=== PATIENT | female | born 1935 | race Caucasian/White ===

== ENCOUNTER → 2016-10-24 | Outpatient (CLI) | payer BC ==
[~2016-10-24] MED LIST: ASPI81TA28 PO; CALCTAB5 PO; FENO200C6 PO; FLAXPOW2 PO; GARL400T4 PO; MAGN250T22; MISC1TAB PO; MULT-506 PO; OMEGCAP2 PO; PSYL0.524 PO; TELM40TA11 PO
[2016-10-24 11:13] LABS: ALT/SGPT 32 U/L (12-78); AST/SGOT 23 U/L (15-37); BLOOD UREA NITROGEN 26 mg/dl (7-18); BUN/CREATININE RATIO 27.8 (10-20); CALCIUM 9.7 mg/dl (8.5-10.1); CARBON DIOXIDE 31 mmol/L (21-32); CHLORIDE 98 mmol/L (98-107); CHOLESTEROL 116 mg/dl (0-200); CREATININE 0.92 mg/dl (0.60-1.20); GLUCOSE 98 mg/dl (70-99); POTASSIUM 4.3 mmol/L (3.5-5.1); SODIUM 134 mmol/L (136-145)
[2016-10-24 11:21] LABS: CHOLESTEROL/HDL RATIO 2.6; HDL CHOLESTEROL 45 mg/dl; LDL CHOLESTEROL CALCULATED 41 mg/dl; THYROID STIMULATING HORMONE 0.977 uIu/ml (0.300-4.500); TRIGLYCERIDES 152 mg/dl (0-150); VERY LOW DENSITY LIPOPROT CALC 30 mg/dl
== END | disposition home or self-care (01) ==
LOC: C.LABBC 08:07
PROVIDERS: ATTEND Internal Medicine
DX: E78.5 Hyperlipidemia, unspecified (principal); L67.9 Hair color and hair shaft abnormality, unspecified; E83.52 Hypercalcemia

== ENCOUNTER → 2017-04-24 | Outpatient (CLI) | payer BC ==
[2017-04-24 11:22] LABS: BLOOD UREA NITROGEN 19 mg/dl (7-18); BUN/CREATININE RATIO 22.7 (10-20); CALCIUM 9.7 mg/dl (8.5-10.1); CARBON DIOXIDE 27 mmol/L (21-32); CHLORIDE 99 mmol/L (98-107); CREATININE 0.84 mg/dl (0.60-1.20); GLUCOSE 95 mg/dl (70-99); POTASSIUM 4.1 mmol/L (3.5-5.1); SODIUM 134 mmol/L (136-145)
[2017-04-24 11:25] LABS: CHOLESTEROL 107 mg/dl (0-200); CHOLESTEROL/HDL RATIO 2.2; HDL CHOLESTEROL 48 mg/dl; LDL CHOLESTEROL CALCULATED 41 mg/dl; TRIGLYCERIDES 92 mg/dl (0-150); VERY LOW DENSITY LIPOPROT CALC 18 mg/dl
== END | disposition home or self-care (01) ==
LOC: C.LABBC 07:44
PROVIDERS: ATTEND Internal Medicine
DX: E78.5 Hyperlipidemia, unspecified (principal); E87.1 Hypo-osmolality and hyponatremia; M85.80 Other specified disorders of bone density and structure, unspecified site

== ENCOUNTER 2017-06-23 08:57 | Emergency (ER) | payer BC ==
[~2017-06-23] VITALS: Ht 157.5 cm; Wt 59.0 kg
[~2017-06-23 08:57] MED LIST changes: -MAGN250T22; +MAGN250T22 PO
[2017-06-23 09:05] VITALS: TEMP 36.3; Ht 157.5 cm; Wt 59.0 kg
[2017-06-23 09:22] VITALS: O2SAT 98
[2017-06-23 09:46] LABS: BASO % 0.1 %; BASO ABS # 0.01 K/uL (0-0.2); COMPLETE YES; EOS % 1.1 %; IG% 0.1 %; LYMPH % 24.4 %; MEAN CELL VOLUME 90.9 fL (80-100); MEAN CORPUSCULAR HEMOGLOBIN 31.8 pg (25-34); MEAN PLATELET VOLUME 11.1 fL (7.4-10.4); MONO % 5.1 %; NEUT % 69.2 %; PLATELET COUNT 256 K/uL (130-400); RED BLOOD COUNT 4.84 M/uL (4.2-5.4)
[2017-06-23 09:53] LABS: ALT/SGPT 29 U/L (12-78); BLOOD UREA NITROGEN 20 mg/dl (7-18); BUN/CREATININE RATIO 22.6 (10-20); CALCIUM 9.7 mg/dl (8.5-10.1); CARBON DIOXIDE 27 mmol/L (21-32); CHLORIDE 97 mmol/L (98-107); GLUCOSE 110 mg/dl (70-99); POTASSIUM 3.9 mmol/L (3.5-5.1); SODIUM 131 mmol/L (136-145)
[2017-06-23 09:54] LABS: PARTIAL THROMBOPLASTIN RATIO 1.1; PROTHROMBIN TIME (PATIENT) 10.2 SECONDS (9.0-12.0)
--- NOTE | 2017-06-23 09:56 | DIAGNOSTIC IMAGING REPORT ---
CHEST ONE VIEW PORTABLE CLINICAL HISTORY: Fever. Sepsis. COMPARISON STUDY: Chest radiograph and chest CT December 04, 2013. FINDINGS: There is mild elevation of the right hemidiaphragm. No pneumothorax or pleural effusion is present. There is no evidence of pulmonary edema. Cardiac size is at the upper limits of normal. No consolidation is identified. IMPRESSION: No acute cardiopulmonary findings. Electronically signed by: Danny Regalado M.D. 06/23/2017 9:55 AM Dictated Date/Time: 06/23/2017 9:52 AM
[2017-06-23 09:58] LABS: ALKALINE PHOSPHATASE 64 U/L (45-117); AST/SGOT 26 U/L (15-37); CKMB/CK RATIO 3.4 (0-3.0)
[2017-06-23] MEDS ORDERED: OMEG10007 PO (10:10)
[2017-06-23] MEDS ORDERED: CALC600T9 PO (10:10)
[2017-06-23] MEDS ORDERED: FENO134C2 PO (10:10)
[2017-06-23] MEDS ORDERED: BIOTCAP2 PO (10:10)
[2017-06-23] MEDS ORDERED: GARL10007 PO (10:11)
[2017-06-23] MEDS ORDERED: GLUCTAB7 PO (10:12)
[2017-06-23] MEDS ORDERED: OMEG1CAP71 PO (10:13)
--- NOTE | 2017-06-23 10:58 | EMERGENCY ROOM VISIT NOTE ---
History Report prepared by Tammi: Janny Sandoval Under the Supervision of: Dr. Pavel Marks D.O. First contact with patient: 09:23 Chief Complaint: HYPERTENSION Stated Complaint: HIGH BLOOD PRESSURE History of Present Illness The patient is a 82 year old female who presents to the Emergency Room with complaints of sudden hypertension beginning this morning. The patient states that she took her blood pressure several times this morning and that it did not come down. She states that she is usually nervous and hyper, but denies dizziness. She also denies weakness in her arms and legs. She states that she saw her doctor last week and was told that if her pressure is 180/90 to call the office right away. The patient states that she takes 40 mg of Telmisartan daily for her hypertension. Source of History: patient Onset: this morning Position: other (global) Quality: other (hypertension ) Timing: other (sudden) Associated Symptoms: No weakness (in arms and legs) Note: also denies: dizziness Review of Systems See HPI for pertinent positives & negatives. A total of 10 systems reviewed and were otherwise negative. Past Medical & Surgical Medical Problems: (1) Chest tightness (2) Chest tightness (3) Hypercholesteremia (4) Hypertension (5) Light-headedness (6) Light-headedness (7) Light-headedness Family History Patient reports no known family medical history. Social History Smoking Status: Never Smoker Alcohol Use: none Drug Use: none Marital Status: Housing Status: lives with family Occupation Status: retired Current/Historical Medications Scheduled Aspirin (Aspirin Ec), 81 MG PO QPM Biotin (Biotin 5000), 5 MG PO DAILY Calcium Carbonate-Vitamin D (Calcium + D), 1 TAB PO DAILY Fenofibrate (Tricor ), 134 MG PO DAILY@1200 Fish Oil ([place]-3), 1 CAP PO DAILY Garlic (Garlic), 1,000 MG PO DAILY Fzwzjxtcidn-Ijxevzzmhno-Fvu C- (Glucosamine Chondroitin), 1 TAB PO DAILY Magnesium Oxide (Magnesium), 250 MG PO DAILY Multivitamin (Multivitamin), 1 TAB PO DAILY [place] 3 Fatty Acids-[place] 6 Fa ([place] 3-6-9 Complex), 1 CAP PO DAILY Psyllium (Metamucil), 1 CAP PO BID Telmisartan (Micardis), 20 MG PO BID Allergies Coded Allergies: No Known Allergies (Unverified , 06/23/17) Physical Exam Vital Signs Date Time Temp Pulse Resp B/P (MAP) Pulse Ox O2 Delivery O2 Flow Rate FiO2 06/23/17 10:52 80 18 160/87 98 Room Air 06/23/17 09:22 81 20 198/90 98 Room Air 06/23/17 09:22 98 Room Air 06/23/17 09:20 87 06/23/17 09:05 36.3 92 20 210/96 98 Room Air Physical Exam CONSTITUTIONAL/VITAL SIGNS: Reviewed / noted above. GENERAL: Non-toxic in appearance. INTEGUMENTARY: Warm, dry, and Sun. HEAD: Normocephalic. EYES: without scleral icterus or trauma. ENT/OROPHARYNX: clear and moist. LYMPHADENOPATHY/NECK: Is supple without lymphadenopathy or meningismus. RESPIRATORY: Lungs clear and equal. CARDIOVASCULAR: Regular rate and rhythm. GI/ABDOMEN: Soft and nontender. No organomegaly or pulsatile mass. No rebound or guarding. Normal bowel sounds. EXTREMITIES: Warm and well perfused. BACK: No CVA tenderness. NEUROLOGICAL: Intact without focal deficits. PSYCHIATRIC: normal affect. MUSCULOSKELETAL: Normally developed with good muscle tone. Medical Decision & Procedures ER Provider Diagnostic Interpretation: Radiology results as stated below per my review and radiologist interpretation: CHEST ONE VIEW PORTABLE CLINICAL HISTORY: Fever. Sepsis. COMPARISON STUDY: Chest radiograph and chest CT December 04, 2013. FINDINGS: There is mild elevation of the right hemidiaphragm. No pneumothorax or pleural effusion is present. There is no evidence of pulmonary edema. Cardiac size is at the upper limits of normal. No consolidation is identified. IMPRESSION: No acute cardiopulmonary findings. Electronically signed by: Danny Regalado M.D. 06/23/2017 9:55 AM Dictated Date/Time: 06/23/2017 9:52 AM Laboratory Results 06/23/17 09:25 Red Blood Count 4.84, Mean Corpuscular Volume 90.9, Mean Corpuscular Hemoglobin 31.8, Mean Corpuscular Hemoglobin Concent 35.0, Mean Platelet Volume 11.1, Neutrophils (%) (Auto) 69.2, Lymphocytes (%) (Auto) 24.4, Monocytes (%) (Auto) 5.1, Eosinophils (%) (Auto) 1.1, Basophils (%) (Auto) 0.1, Neutrophils # (Auto) 6.22, Lymphocytes # (Auto) 2.20, Monocytes # (Auto) 0.46, Eosinophils # (Auto) 0.10, Basophils # (Auto) 0.01 06/23/17 09:25 Test 06/23/17 09:25 White Blood Count 9.00 K/uL (4.8-10.8) Red Blood Count 4.84 M/uL (4.2-5.4) Hemoglobin 15.4 g/dL (12.0-16.0) Hematocrit 44.0 % (37-47) Mean Corpuscular Volume 90.9 fL (80-100) Mean Corpuscular Hemoglobin 31.8 pg (25-34) Mean Corpuscular Hemoglobin Concent 35.0 g/dl (32-36) Platelet Count 256 K/uL (130-400) Mean Platelet Volume 11.1 fL (7.4-10.4) Neutrophils (%) (Auto) 69.2 % Lymphocytes (%) (Auto) 24.4 % Monocytes (%) (Auto) 5.1 % Eosinophils (%) (Auto) 1.1 % Basophils (%) (Auto) 0.1 % Neutrophils # (Auto) 6.22 K/uL (1.4-6.5) Lymphocytes # (Auto) 2.20 K/uL (1.2-3.4) Monocytes # (Auto) 0.46 K/uL (0.11-0.59) Eosinophils # (Auto) 0.10 K/uL (0-0.5) Basophils # (Auto) 0.01 K/uL (0-0.2) RDW Standard Deviation 43.0 fL (36.4-46.3) RDW Coefficient of Variation 13.0 % (11.5-14.5) Immature Granulocyte % (Auto) 0.1 % Immature Granulocyte # (Auto) 0.01 K/uL (0.00-0.02) Prothrombin Time 10.2 SECONDS (9.0-12.0) Prothromb Time International Ratio 1.0 (0.9-1.1) Activated Partial Thromboplast Time 27.5 SECONDS (21.0-31.0) Partial Thromboplastin Ratio 1.1 Anion Gap 8.0 mmol/L (3-11) Est Creatinine Clear Calc Drug Dose 38.8 ml/min Estimated GFR () 69.5 Estimated GFR (Non- 60.0 BUN/Creatinine Ratio 22.6 (10-20) Calcium Level 9.7 mg/dl (8.5-10.1) Total Bilirubin 0.4 mg/dl (0.2-1) Direct Bilirubin 0.1 mg/dl (0-0.2) Aspartate Amino Transf (AST/SGOT) 26 U/L (15-37) Alanine Aminotransferase (ALT/SGPT) 29 U/L (12-78) Alkaline Phosphatase 64 U/L (45-117) Total Creatine Kinase 47 U/L (26-192) Creatine Kinase MB 1.6 ng/ml (0.5-3.6) Creatine Kinase MB Ratio 3.4 (0-3.0) Troponin I < 0.015 ng/ml (0-0.045) Total Protein 9.3 gm/dl (6.4-8.2) Albumin 4.4 gm/dl (3.4-5.0) Laboratory results as stated above per my review. ECG Indication: other (hypertension) Rate (beats per minute): 76 Rhythm: sinus rhythm Findings: 1st degree AV block, no acute ischemic change, no ectopy ED Course 0934: Previous medical records were reviewed. The patient was evaluated in room A2. A complete history and physical examination was performed. 1058: On reevaluation, the patient is resting. I discussed the results and findings with the patient. She verbalized agreement of the treatment plan. She was discharged home. Medical Decision Differential includes acute coronary syndrome, myocardial infarction, CVA, TIA, anemia, infection, pneumonia, UTI, pyelonephritis, poor nutrition, dehydration, electrolyte disturbance,hypoglycemia. Is an 82-year-old female who presents to the ED with a chief complaint of hypertension. The patient states that she checked her blood pressure this morning it was elevated. She states that she is always anxious and nervous. She states that this blood pressure was higher than normal. She had her blood pressure checked last week by her doctor and it was only mildly elevated. The patient has no complaints. She states that she feels fine. Physical exam was normal. EKG shows a sinus rhythm. CBC, complete metabolic panel and troponin are unremarkable. Without treatment, the patient's blood pressure improved to 160/87. She was told the results of the test. She is felt to be stable for discharge and outpatient follow-up to have her blood pressure rechecked. Medication Reconcilliation Current Medication List: was personally reviewed by me Blood Pressure Screening Patient's blood pressure: Elevated blood pressure Blood pressure disposition: Referred to PCP Impression Primary Impression: Hypertension Scribe Attestation The scribe's documentation has been prepared under my direction and personally reviewed by me in its entirety. I confirm that the note above accurately reflects all work, treatment, procedures, and medical decision making performed by me. Departure Information Dispostion Home / Self-Care Referrals Misael Victor M.D. (PCP) Forms HOME CARE DOCUMENTATION FORM, IMPORTANT VISIT INFORMATION, WORK / SCHOOL INSTRUCTIONS Patient Instructions My [facility] Additional Instructions Follow-up with your doctor for further care and evaluation in 1-2 days. Return to the emergency department for worsening or new symptoms or any concerns. You have been examined and treated today on an emergency basis only. This is not a substitute for, or an effort to provide, complete comprehensive medical care. It is impossible to recognize and treat all injuries or illnesses in a single emergency department visit. It is therefore important that you follow up closely with your doctor. Call as soon as possible for an appointment. Have your blood pressure rechecked this week by your doctor.
[2017-06-23 11:33] VITALS: BP 157/88; PULSE 79; O2SAT 99
== END 2017-06-23 11:35 | disposition home or self-care (01) ==
LOC: C.EDB 09:00 → C.EDA 11:35
DX: I10 Essential (primary) hypertension (principal); E78.00 Pure hypercholesterolemia, unspecified; Z79.82 Long term (current) use of aspirin; Z79.899 Other long term (current) drug therapy

== ENCOUNTER → 2017-10-24 | Outpatient (CLI) | payer BC ==
[~2017-10-24] MED LIST changes: +BIOTCAP2 PO; +CALC600T9 PO; -CALCTAB5 PO; +FENO134C2 PO; -FENO200C6 PO; -FLAXPOW2 PO; +GARL10007 PO; -GARL400T4 PO; +GLUCTAB7 PO; -MISC1TAB PO; +OMEG10007 PO; +OMEG1CAP71 PO; -OMEGCAP2 PO
[2017-10-24 11:08] LABS: BASO % 0.1 %; BASO ABS # 0.01 K/uL (0-0.2); EOS % 1.4 %; EOS ABS # 0.12 K/uL (0-0.5); HEMATOCRIT 41.8 % (37-47); HEMOGLOBIN 14.1 g/dL (12.0-16.0); IG# 0.02 K/uL (0.00-0.02); LYMPH % 32.4 %; LYMPH ABS # 2.74 K/uL (1.2-3.4); MEAN CELL VOLUME 91.1 fL (80-100); MEAN CORPUSCULAR HEMOGLOBIN 30.7 pg (25-34); MEAN CORPUSCULAR HGB CONC 33.7 g/dl (32-36); MEAN PLATELET VOLUME 10.6 fL (7.4-10.4); MONO % 8.3 %; NEUT % 57.6 %; NEUT ABS # 4.87 K/uL (1.4-6.5); PLATELET COUNT 321 K/uL (130-400); RED CELL DISTRIBUTION WIDTH CV 13.1 % (11.5-14.5); RED CELL DISTRIBUTION WIDTH SD 43.6 fL (36.4-46.3); WHITE BLOOD COUNT 8.46 K/uL (4.8-10.8)
[2017-10-24 11:41] LABS: ALT/SGPT 28 U/L (12-78); AST/SGOT 21 U/L (15-37); BLOOD UREA NITROGEN 24 mg/dl (7-18); CALCIUM 10.4 mg/dl (8.5-10.1); CARBON DIOXIDE 29 mmol/L (21-32); CHOLESTEROL 115 mg/dl (0-200); CREATININE 0.93 mg/dl (0.60-1.20); GLUCOSE 111 mg/dl (70-99); POTASSIUM 4.2 mmol/L (3.5-5.1); SODIUM 132 mmol/L (136-145)
[2017-10-24 11:44] LABS: LDL CHOLESTEROL CALCULATED 44 mg/dl
== END | disposition home or self-care (01) ==
LOC: C.LABBC 08:27
PROVIDERS: ATTEND Internal Medicine
DX: E78.5 Hyperlipidemia, unspecified (principal); I10 Essential (primary) hypertension

== ENCOUNTER 2021-01-04 13:41 | Observation (INO) ==
--- NOTE | 2021-01-04 14:28 | Emergency Department Note ---
Impression & Plan Closed fracture of left hip, Acute hip pain, Acute hyponatremia, Fall ED Provider Note NAME: TAMEKA EDGE AGE: 86 SEX: F : 1935 ARRIVES VIA: Walk-In INFORMANT: Patient, ED PROVIDER(S): Drew Alonso MD Chief Complaint: Hip pain HPI: Patient does present with concern for some persistent left hip pain. Patient states that she had a fall approximately 3 weeks ago on December 17 and fell onto her left side. The patient states that after that she did have some mild pain with ambulation but still had good range of motion. The patient not take anything for pain at home. Patient denies any LOC or head strike at the time of the fall. The patient describes it as achy and worse with the ambulation. Pat ient denies any fevers chills chest pain shortness of breath nausea or vomiting. The patient was seen in the outpatient setting did have x-rays completed which show that the patient does have a left-sided impacted hip fracture. Patient denies any prior history of orthopedic injury or surgery. ROS: See HPI for pertinent positives and negatives. A total of 10 systems were reviewed and otherwise negative. Past medical history: See below Surgical history: See below Social history: See below Physical Exam: GENERAL: Wearing glasses and a mask. NAD, non-toxic. EYE EXAM: Normal conjunctiva. PERRL, no anisocoria and EOM's grossly intact w/o pain. NECK: Supple, no nuchal rigidity, no adenopathy, non-tender. No signs of meningismus. LUNGS: Clear to auscultation. Normal chest wall mechanics. HEART: NSR, no MRG. ABDOMEN: Abdomen soft, non-tender, normo-active bowel sounds, no masses, no kalani ound or guarding. BACK: No CVA TTP. SKIN: No rashes and no bruising. UPPER EXTREMITIES: Upper extremities are grossly normal. LOWER EXTREMITIES: Mild left shortening compared to the right, no obvious deformity or ecchymosis over the left hip. Good range of motion. NEURO EXAM: A&O x3, cranial nerves II-XII grossly intact, normal speech, moves all 4 extremities on command w/o issue. Differential diagnoses: Fracture, subluxation, dislocation, contusion, ligamentous injury, neurovascular, compartment syndrome, rhabdomyolysis, as well as other pathologies. Course: Patient was seen and evaluated the bedside. Full history physical exam was performed. Imaging Studies: Prior imaging from before the patient's visit showed a left impacted hip fracture. Cardiac monitoring: An order was placed for continuous cardiac monitoring. The monitor shows a rate of 93 with sinus rhythm. MDM: Patient did present with concern for left hip fracture. I did speak with the on-call orthopedist Rolly Collado PA-C and the patient was admitted by [facility] physician group by Dr. Knox for further management. Patient has normal white count H&H and platelet count. Patient does have mild hyponatremia. Covid negative. Past Med/Surg History Medical History Chest tightness Chest tightness Hypercholesteremia Hypertension Light-headedness No pertinent family history Surgical History No pertinent past surgical history Family History Brother Stomach cancer Alcohol abuse Diabetes Mother Stomach cancer Colonic polyp Colorectal cancer Father Myocardial infarction Aunt Breast cancer Denies family history of Ovarian cancer Prostate cancer Social History Smoking Status: Never smoker Second Hand Exposure: Yes; Hx Alcohol Use: No (social) Hx Substance Use: No Preferred Language: Tristanian Communication Ability: Effective Visual Impairment: No Limitations Hearing Ability: Normal Beliefs That Will Affect Care: None marital status: / Current Living Situation: Alone current occupational status: retired Feels Safe at Home: Yes Childhood Exposure to Second-Hand Smoke: Yes Dental Care, Regularly: Yes Physical Activity Frequency: Daily Seatbelt Use: always Sunscreen Use: No Assistive Devices: Glasses Allergies Allergies Allergy/AdvReac Type Severity Reaction Status Date / Time No Known Allergies Allergy Verified 01/04/21 11:46 Home Meds Home Medications Medication Instructions Recorded Confirmed aspirin [Aspirin Low Dose] 81 mg PO QPM 12/09/18 01/04/21 biotin 5 mg PO DAILY 12/09/18 01/04/21 fish,bora,flax oils-om3,6,9no1 1 cap PO DAILY 12/09/18 01/04/21 [[place] 3-6-9] garlic 1,000 mg PO DAILY 12/09/18 01/04/21 magnesium 250 mg PO DAILY 12/09/18 01/04/21 mslecmca-cky-BX-lycopen-lutein 1 tab PO DAILY 12/09/18 01/04/21 [Centrum Silver] psyllium husk 0.4 gram capsule 0.8 gm PO DAILY cap 04/29/19 01/04/21 furosemide 20 mg tablet 20 mg PO DAILY tab 01/05/20 01/04/21 cholecalciferol (vitamin D3) 25 25 mcg PO DAILY 01/04/21 01/04/21 mcg (1,000 unit) capsule clonidine HCl 0.1 mg tablet 0.1 mg PO .COMPLEX PRN tab 01/04/21 01/04/21 fenofibrate micronized 134 mg 134 mg PO DAILY cap 01/04/21 01/04/21 capsule yajo-wuhpy-do8-ner-upb-axhx-sterols 2 cap PO DAILY cap 01/04/21 01/04/21 375 mg-100 mg-36 mg-54 mg capsule triamcinolone acetonide 0.1 % 1 applic TOP DAILY PRN 01/04/21 01/04/21 topical cream Previous Rx's Medication Instructions Recorded amlodipine 10 mg tablet 10 mg PO DAILY #90 tab 04/30/20 telmisartan 40 mg tablet 40 mg PO BID #180 tab 07/05/20 Results & Data (ED) Vital Signs Vital Signs - 24 hr 01/04/21 14:00 Temperature 36.9 C Temperature Source Temporal Artery Scan Pulse Rate 93 H Respiratory Rate 20 Respiratory Effort / Characteristics Non-Labored Spontaneous Respiratory Depth Normal Respiratory Pattern Regular Blood Pressure 182/80 H Blood Pressure Mean 114 Pulse Oximetry 98 Oxygen Delivery Method Room Air Sepsis Recent Fever Within 48 Hours No Sepsis New/Unexplained Change in Mental Status No Sepsis Action Taken by Nursing No Action Required Laboratory Data Result diagrams: 01/04/21 15:23 01/04/21 15:23 Lab Results 01/04/21 01/04/21 01/04/21 Range/Units 15:23 15:23 15:23 WBC 9.71 (4.8-10.8) K/uL RBC 4.29 (4.2-5.4) M/uL Hgb 13.1 (12.0-16.0) g/dL Hct 38.1 (37-47) % MCV 88.8 (80-100) fL MCH 30.5 (25-34) pg MCHC 34.4 (32-36) g/dL RDW Std Deviation 41.7 (36.4-46.3) fL RDW Coeff of Monse 12.9 (11.5-14.5) % Plt Count 313 (130-400) K/uL MPV 9.8 (7.4-10.4) fL Immature Gran % (Auto) 0.3 % Neut % (Auto) 68.5 % Lymph % (Auto) 23.4 % [place] % (Auto) 6.8 % Eos % (Auto) 0.9 % Baso % (Auto) 0.1 % Neut # (Auto) 6.65 H (1.4-6.5) K/uL Lymph # (Auto) 2.27 (1.2-3.4) K/uL [place] # (Auto) 0.66 H (0.11-0.59) K/uL Eos # (Auto) 0.09 (0-0.5) K/uL Baso # (Auto) 0.01 (0-0.2) K/uL Immature Gran # (Auto) 0.03 H (0.00-0.02) K/uL PT 10.2 (9.0-12.0) Seconds INR 1.0 (0.9-1.1) APTT 28.1 (21.0-31.0) Seconds PTT Ratio 1.1 Sodium 127 L (136-145) mmol/L Potassium 4.1 (3.5-5.1) mmol/L Chloride 94 L (98-107) mmol/L Carbon Dioxide 29 (21-32) mmol/L Anion Gap 5.0 (3-11) BUN 19 H (7-18) mg/dl Creatinine 0.75 (0.6-1.2) mg/dl Est Cr Clr Drug Dosing 43.4 ml/min Est GFR ( Amer) 84.2 ml/min Est GFR (Non-Af Amer) 72.7 ml/min BUN/Creatinine Ratio 25.6 H (10-20) Glucose 108 H (70-99) mg/dl Calcium 10.0 (8.5-10.1) mg/dl Total Bilirubin 0.4 (0.2-1) mg/dl AST 30 (15-37) U/L ALT 35 (12-78) U/L Alkaline Phosphatase 60 (45-117) U/L Total Protein 8.3 H (6.4-8.2) gm/dl Albumin 3.7 (3.4-5.0) gm/dl Globulin 4.6 H (2.5-4.0) gm/dl Albumin/Globulin Ratio 0.8 L (0.9-2) COVID-19 Eval Order SARS-CoV-2 (PCR) (Negative) 01/04/21 01/04/21 Range/Units 15:30 15:30 WBC (4.8-10.8) K/uL RBC (4.2-5.4) M/uL Hgb (12.0-16.0) g/dL Hct (37-47) % MCV (80-100) fL MCH (25-34) pg MCHC (32-36) g/dL RDW Std Deviation (36.4-46.3) fL RDW Coeff of Monse (11.5-14.5) % Plt Count (130-400) K/uL MPV (7.4-10.4) fL Immature Gran % (Auto) % Neut % (Auto) % Lymph % (Auto) % [place] % (Auto) % Eos % (Auto) % Baso % (Auto) % Neut # (Auto) (1.4-6.5) K/uL Lymph # (Auto) (1.2-3.4) K/uL [place] # (Auto) (0.11-0.59) K/uL Eos # (Auto) (0-0.5) K/uL Baso # (Auto) (0-0.2) K/uL Immature Gran # (Auto) (0.00-0.02) K/uL PT (9.0-12.0) Seconds INR (0.9-1.1) APTT (21.0-31.0) Seconds PTT Ratio Sodium (136-145) mmol/L Potassium (3.5-5.1) mmol/L Chloride (98-107) mmol/L Carbon Dioxide (21-32) mmol/L Anion Gap (3-11) BUN (7-18) mg/dl Creatinine (0.6-1.2) mg/dl Est Cr Clr Drug Dosing ml/min Est GFR ( Amer) ml/min Est GFR (Non-Af Amer) ml/min BUN/Creatinine Ratio (10-20) Glucose (70-99) mg/dl Calcium (8.5-10.1) mg/dl Total Bilirubin (0.2-1) mg/dl AST (15-37) U/L ALT (12-78) U/L Alkaline Phosphatase (45-117) U/L Total Protein (6.4-8.2) gm/dl Albumin (3.4-5.0) gm/dl Globulin (2.5-4.0) gm/dl Albumin/Globulin Ratio (0.9-2) COVID-19 Eval Order Covid19 at [facility] SARS-CoV-2 (PCR) NEGATIVE (Negative) Discharge Plan Visit Data Chief Complaint: Hip Pain Stated Complaint: POSSIBLE FRACTURED L HIP/REFERRED BY ED Provider: Drew Alonso Discharge Problem: Closed fracture of left hip, Acute hip pain, Acute hyponatremia, Fall Forms Stand Alone Forms: My [facility] [employer] Prescriptions Prescriptions: No Action amlodipine 10 mg tablet 10 mg PO DAILY Qty: 90 RF: 3 telmisartan 40 mg tablet 40 mg PO BID Qty: 180 RF: 3 cholecalciferol (vitamin D3) 25 mcg (1,000 unit) capsule 25 mcg PO DAILY RF: 0 clonidine HCl 0.1 mg tablet 0.1 mg PO .COMPLEX PRN (Reason: hypertensive emergency) RF: 0 fenofibrate micronized 134 mg capsule 134 mg PO DAILY RF: 0 furosemide [Lasix] 20 mg tablet 20 mg PO DAILY RF: 0 triamcinolone acetonide 0.1 % cream 1 applic TOP DAILY PRN (Reason: DIRECTED) RF: 0 psyllium husk [Metamucil] 0.4 gram capsule 0.8 gm PO DAILY RF: 0 aspirin [Aspirin Low Dose] 81 mg Tablet,Delayed Release (Dr/Ec) 81 mg PO QPM RF: 0 garlic 1,000 mg Capsule 1,000 mg PO DAILY RF: 0 magnesium 250 mg Tablet 250 mg PO DAILY RF: 0 Centrum Silver 0.4-300-250 mg-mcg-mcg Tablet 1 tab PO DAILY RF: 0 biotin 5 mg Tablet 5 mg PO DAILY RF: 0 [place] 3-6-9 1,200 mg Capsule 1 cap PO DAILY RF: 0 Glucosamine Chondroitin PLUS 272-384-71-54 mg capsule 2 cap PO DAILY RF: 0 Discharge Problem: Closed fracture of left hip Qualifiers: Encounter type: initial encounter Qualified Code(s): S72.002A - Fracture of unspecified part of neck of left femur, initial encounter for closed fracture Acute hip pain Qualifiers: Laterality: left Qualified Code(s): M25.552 - Pain in left hip Fall Qualifiers: Encounter type: initial encounter Qualified Code(s): W19.XXXA - Unspecified fall, initial encounter
[2021-01-04 15:34] LABS: Basophils # (auto) 0.01 K/uL (0-0.2); Basophils % (auto) 0.1 %; Eosinophils # (auto) 0.09 K/uL (0-0.5); Eosinophils % (auto) 0.9 %; Hematocrit (blood only) 38.1 % (37-47); Hemoglobin 13.1 g/dL (12.0-16.0); Immature Granulocytes # (auto) 0.03 K/uL (0.00-0.02); Immature Granulocytes % (auto) 0.3 %; Lymphocytes # (auto) 2.27 K/uL (1.2-3.4); Lymphocytes % (auto) 23.4 %; Mean Corpuscular Hemoglobin 30.5 pg (25-34); Mean Corpuscular Hgb Conc 34.4 g/dL (32-36); Mean Corpuscular Volume 88.8 fL (80-100); Mean Platelet Volume 9.8 fL (7.4-10.4); Monocytes # (auto) 0.66 K/uL (0.11-0.59); Monocytes % (auto) 6.8 %; Neutrophils # (auto) 6.65 K/uL (1.4-6.5); Neutrophils % (auto) 68.5 %; Platelet Count 313 K/uL (130-400); RDW Coefficient of Variation 12.9 % (11.5-14.5); RDW Standard Deviation 41.7 fL (36.4-46.3); Red Blood Count 4.29 M/uL (4.2-5.4); White Blood Count 9.71 K/uL (4.8-10.8)
--- NOTE | 2021-01-04 15:46 | History & Physical Report ---
Date of Service January 04, 2021 Assessment & Plan (1) Femoral neck fracture: Admit to a nonmonitored bed Continues Tylenol for pain control, patient was doing this at home and does not appear to be in any distress Family is requesting from orthopedics for further evaluation, will consult Bedrest for now until evaluated (2) Hyponatremia: Sodium is 129, I did review the laboratory work and appears that she is chronically hyponatremic. Patient is on furosemide, I will hold this for now and monitor sodium (3) Hypertension: Patient's blood pressure was elevated on presentation, last documented at 182/80. Continue amlodipine 10 mg daily, telmisartan 40 mg Patient has as needed clonidine and her medication reconciliation, can give this for hypertension If this is persistent, may need to consider additional agents (4) Hypercholesteremia: Patient is on garlic and fish oil along with fenofibrate Will defer any further treatment of hypercholesterolemia to primary care doctor History of Present Illness Chief Complaint: Hip fracture Primary Care Provider: Misael Victor MD This is an 86-year-old female past medical history of hypertension hyperlipidemia that presents today with chief complaint hip fracture. Patient is a decent story. Patient was initially seen by her primary care provider earlier today with a complaint of persistent left hip pain. Their documentation as the patient has been having pain for several years but is been worse over the past month. She did note that she had fallen at home on 12/17. She lost her balance and did not strike her head lose consciousness at that time. Patient has been ambulatory since then has been able to continue to drive and care for self. She tells me she use her exercise bike earlier today. She also told me that she was able to use the stairs without any issues. She does use a cane for balance. However, after her primary care visit she had x-rays done which showed an impacted left femoral neck fracture. Patient was started to come to the emergency room for further evaluation. At time my evaluation, the patient was essentially stable. She denied any pain in her left hip and felt well. She said to be surprised that she had to stay in the hospital. Family member at bedside is requesting from orthopedics for any treatment that may be required. Allergies Allergy/AdvReac Type Severity Reaction Status Date / Time No Known Allergies Allergy Verified 01/04/21 11:46 Home Medications Medication Instructions Recorded Confirmed Type aspirin [Aspirin Low Dose] 81 mg PO QPM 12/09/18 01/04/21 History biotin 5 mg PO DAILY 12/09/18 01/04/21 History fish,bora,flax oils-om3,6,9no1 1 cap PO DAILY 12/09/18 01/04/21 History [[place] 3-6-9] garlic 1,000 mg PO DAILY 12/09/18 01/04/21 History magnesium 250 mg PO DAILY 12/09/18 01/04/21 History crlqhrdc-hqn-PE-lycopen-lutein 1 tab PO DAILY 12/09/18 01/04/21 History [Centrum Silver] psyllium husk 0.4 gram capsule 0.8 gm PO DAILY cap 04/29/19 01/04/21 History furosemide 20 mg tablet 20 mg PO DAILY tab 01/05/20 01/04/21 History amlodipine 10 mg tablet 10 mg PO DAILY #90 tab 04/30/20 01/04/21 Rx telmisartan 40 mg tablet 40 mg PO BID #180 tab 07/05/20 01/04/21 Rx cholecalciferol (vitamin D3) 25 25 mcg PO DAILY 01/04/21 01/04/21 History mcg (1,000 unit) capsule clonidine HCl 0.1 mg tablet 0.1 mg PO .COMPLEX PRN tab 01/04/21 01/04/21 History fenofibrate micronized 134 mg 134 mg PO DAILY cap 01/04/21 01/04/21 History capsule udsb-zszjz-bk2-ntt-agv-bdms-sterols 2 cap PO DAILY cap 01/04/21 01/04/21 History 375 mg-100 mg-36 mg-54 mg capsule triamcinolone acetonide 0.1 % 1 applic TOP DAILY PRN 01/04/21 01/04/21 History topical cream Past Med/Surg History Medical History Chest tightness Chest tightness Hypercholesteremia Hypertension Light-headedness No pertinent family history Surgical History No pertinent past surgical history Family History Brother Stomach cancer Alcohol abuse Diabetes Mother Stomach cancer Colonic polyp Colorectal cancer Father Myocardial infarction Aunt Breast cancer Denies family history of Ovarian cancer Prostate cancer Social History Smoking Status: Never smoker Second Hand Exposure: Yes; Hx Alcohol Use: No (social) Hx Substance Use: No Preferred Language: Cymro Communication Ability: Effective Visual Impairment: No Limitations Hearing Ability: Normal Beliefs That Will Affect Care: None marital status: / Current Living Situation: Alone current occupational status: retired Feels Safe at Home: Yes Childhood Exposure to Second-Hand Smoke: Yes Dental Care, Regularly: Yes Physical Activity Frequency: Daily Seatbelt Use: always Sunscreen Use: No Assistive Devices: Glasses Review of Systems Constitutional: no fever, no chills, no weakness, no weight loss and no weight gain Eyes: as per Subjective / HPI Respiratory: no cough, no chest congestion, no dyspnea and no dyspnea on exertion Cardiovascular: no chest pain, no orthopnea, no palpitations, no lighthe adedness and no edema Gastrointestinal: no abdominal pain, no nausea, no vomiting, no constipation and no diarrhea/loose stools Genitourinary: no dysuria, no difficulty urinating, no urinary frequency, no urinary hesitancy, no urinary urgency and no flank pain Musculoskeletal: no back pain, no neck pain, no joint pain, no stiffness and no myalgia Integumentary: no rash Neurologic: no gait abnormality, no unsteadiness, no falls and no generalized weakness Physical Exam Constitutional: cooperative and comfortable; no acute distress Neck: trachea midline, no thyromegaly Respiratory: normal respiratory effort Auscultation: lungs clear to auscultation bilaterally; no crackles, no rales, no rhonchi and no wheezes Cardiovascular: Rate/Rhythm: regular rate and regular rhythm Heart Sounds: normal S1 and normal S2 Gastrointestinal (Abdomen): Inspection/Auscultation: abdomen normal to inspection Percussion/Palpation: abdomen soft; abdomen nontender, no guarding, abdomen not rigid and no hepatosplenomegaly Musculoskeletal: No obvious deformity of either extremity, distal PT and DP pulses intact Skin: no rashes, warm and dry Results & Data Results & Data ([facility]) Vital Signs (Past 12 Hours) Vital Signs Temp Pulse Resp BP Pulse Ox 01/04/21 14:00 36.9 C 93 H 20 182/80 H 98 Diagnostic Findings SINGLE VIEW PELVIS AND: 2 VIEWS LEFT HIP CLINICAL HISTORY: Fall. Left hip pain. FINDINGS: An AP view of the pelvis with AP and frog-leg views of the left hip are obtained. No prior studies are available for comparison at the time of dictation. The skeletal structures are osteopenic. There is an impacted fracture at the left femoral head/neck junction. The bony pelvis and left hip appear intact. Advanced arthritic changes seen in the left hip with large calcified joint bodies. Moderate to advanced arthritic changes noted in the right hip. Lumbosacral spondylosis is partially imaged. Degenerative sclerosis is seen in the sacroiliac joints. Mild soft tissue edema overlies the left hip. IMPRESSION: 1. There is an impacted fracture at the left femoral head/neck junction. 2. No additional fracture is identified. 3. Advanced arthritic change and calcified joint bodies are noted in the left hip. PG Care Time/CCT Total # of Minutes Spent Total Time Spent with Patient: Total time spent is greater than 50% in coordination of care (as documented) at patient's floor/unit and/or counseling patient: Coding Level of Care Code 15008 Initial Inpt Care Lvl 3 Diagnoses Femoral neck fracture S72.009A Hyponatremia E87.1 Hypertension I10 Hypertension type: essential hypertension Hypercholesteremia E78.00 (1) Hypertension Hypertension type: essential hypertension Qualified Code(s): I10 - Essential (primary) hypertension
[2021-01-04 15:55] LABS: Albumin Level 3.7 gm/dl (3.4-5.0); BUN Creatinine Ratio 25.6 (10-20); Creatinine Clr Calc Pharmacy 43.4 ml/min; Est GFR (African American) 84.2 ml/min; Est GFR (Non-African American) 72.7 ml/min; Potassium 4.1 mmol/L (3.5-5.1)
[2021-01-04 15:58] LABS: Albumin Globulin Ratio 0.8 (0.9-2); Bilirubin,Total 0.4 mg/dl (0.2-1); Globulin 4.6 gm/dl (2.5-4.0); Total Protein 8.3 gm/dl (6.4-8.2)
[2021-01-04 16:01] LABS: Partial Thromboplastin Ratio 1.1; Partial Thromboplastin Time 28.1 Seconds (21.0-31.0); Prothrombin Time 10.2 Seconds (9.0-12.0)
[2021-01-04 16:44] LABS: Appearance Urine Clear (Clear); Bilirubin Urine Negative (Negative); Blood Urine Negative (Negative); Color Urine Yellow; Glucose Urine UA Negative (Negative); Ketones Urine Negative (Negative); Leukocyte Esterase Urine Negative (Negative); Nitrite Urine Negative (Negative); Protein Urine Negative (Negative); Specific Gravity Urine 1.015 (1.000-1.030); Urobilinogen Urine Negative (Negative); pH Urine 8.5 (4.5-7.5)
[2021-01-04] MEDS ORDERED: ACETAMINOPHEN 325 MG TAB PO PRN (21:18)
[2021-01-04] MEDS ORDERED: SODIUM CHLORIDE 0.9% 1000ML 1,000 ML IV SCH (21:18)
[2021-01-04] MEDS ORDERED: cloNIDine HCL 0.1 MG TAB PO PRN (21:18)
[2021-01-04] MEDS ORDERED: ONDANSETRON INJ 2 MG/ML 2 ML VIAL IV PRN (21:18)
[2021-01-04] MEDS ORDERED: ASPIRIN 81 MG ECTAB PO SCH (21:18)
[2021-01-04] MEDS: HEPARIN SOD 5,000 UNIT/0.5 ML VIAL SQ SCH (22:46)
[2021-01-04] MEDS: TELMISARTAN 40 MG TAB PO SCH (22:46)
[2021-01-04] MEDS: SODIUM CHLORIDE 0.9% 1000ML 1,000 ML IV SCH (22:47)
[2021-01-05] MEDS: HEPARIN SOD 5,000 UNIT/0.5 ML VIAL SQ SCH ×2 (05:18→12:42)
[2021-01-05 08:15] LABS: Basophils # (auto) 0.01 K/uL (0-0.2); Basophils % (auto) 0.1 %; Eosinophils # (auto) 0.09 K/uL (0-0.5); Eosinophils % (auto) 1.1 %; Hemoglobin 13.9 g/dL (12.0-16.0); Immature Granulocytes # (auto) 0.02 K/uL (0.00-0.02); Immature Granulocytes % (auto) 0.3 %; Lymphocytes # (auto) 2.01 K/uL (1.2-3.4); Lymphocytes % (auto) 25.3 %; Mean Corpuscular Hemoglobin 30.9 pg (25-34); Mean Corpuscular Hgb Conc 33.9 g/dL (32-36); Mean Corpuscular Volume 91.1 fL (80-100); Mean Platelet Volume 10.3 fL (7.4-10.4); Monocytes # (auto) 0.58 K/uL (0.11-0.59); Monocytes % (auto) 7.3 %; Neutrophils # (auto) 5.23 K/uL (1.4-6.5); Neutrophils % (auto) 65.9 %; Platelet Count 325 K/uL (130-400); RDW Standard Deviation 43.5 fL (36.4-46.3); White Blood Count 7.94 K/uL (4.8-10.8)
[2021-01-05 08:55] LABS: BUN Creatinine Ratio 27.5 (10-20); Calcium 9.2 mg/dl (8.5-10.1); Creatinine Clr Calc Pharmacy 54.2 ml/min; Est GFR (African American) 96.3 ml/min; Est GFR (Non-African American) 83.1 ml/min; Potassium 3.8 mmol/L (3.5-5.1)
[2021-01-05] MEDS ORDERED: NON-FORMULARY MEDICATION (Biotin 5 mg Tablet) PO SCH (09:00)
[2021-01-05] MEDS ORDERED: CHOLECALCIFEROL 1,000 UNITS 25 MCG TAB PO SCH (09:00)
[2021-01-05] MEDS ORDERED: [UNRECOGNIZED DRUG - OTHER] PO SCH (09:00)
[2021-01-05] MEDS ORDERED: FENOFIBRATE NANOCRYSTALLIZED 145 MG TABLET PO SCH (09:00)
[2021-01-05] MEDS ORDERED: PSYLLIUM 58.6% POWDER PACKET PO SCH (09:00)
[2021-01-05] MEDS ORDERED: MAGNESIUM OXIDE 400 MG TAB PO SCH (09:00)
[2021-01-05] MEDS ORDERED: CEROVITE ADV FORMULA TAB PO SCH (09:00)
[2021-01-05] MEDS ORDERED: OMEGA-3 (PURIFIED FISH OIL) 1 GM CAP PO SCH (09:00)
[2021-01-05] MEDS ORDERED: GLUC CONDR OM3 DHA EPA FISH ST PO SCH (09:00)
--- NOTE | 2021-01-05 09:41 | Magnetic Resonance Report ---
MR hip LT wo con CLINICAL HISTORY: 86 years-old Female with possible left hip fracture. Acute left hip pain with poss ible fracture COMPARISON: Pelvis and left hip radiographs 01/04/2021. TECHNIQUE: Multiplanar, multi sequence MRI of the left hip was performed without intravenous contrast . FINDINGS: Motion degraded exam. LABRUM: Irregularity of the labrum compatible with complex chronic tearing. BONE MARROW: No acute or subacute fracture identified. Mild to moderate bone marrow edema of the lef t femoral acetabular joint and left femoral neck is likely on a degenerative basis as described below . BURSAE: There is no evidence for iliopsoas or trochanteric bursitis. HIP JOINT: There is severe osteoarthritis of the left femoral acetabular joint with subcortical cyst ic changes, subchondral sclerosis and subchondral edema. There is a large 2.6 cm uterine of the super ior left femoral head. Chronic remodeling changes with mild flattening of the superior femoral head. High-grade chondromalacia with [id number]-im-onpq articulation. Trace left hip joint effusion with mild per icapsular edema, also likely on a degenerative basis. Suspected loose bodies of the femoral acetabula r joint are better seen on comparison radiographs. There is at least mild right hip osteoarthritis. MUSCLES: Muscular signal and morphology is within normal limits. SCIATIC NERVE: The morphology and signal characteristics of the sciatic nerve appear normal. Gregory catheter noted within the urinary bladder lumen. Mild focal subcutaneous edema of the anterior left abdominal wall may be secondary to medicinal injection site. IMPRESSION: 1. No acute or subacute fracture. 2. Severe left hip osteoarthritis as detailed above. Associated bone marrow and pericapsular edema is likely on a degenerative basis. 3. Intra-articular loose bodies of the left hip are better seen on comparison radiographs. ACT 112: Negative or not required by law. The above report was generated using voice recognition software. It may contain grammatical, syntax o r spelling errors. Electronically signed by: Elías Mario M.D. 01/05/2021 9:40 AM
[2021-01-05] MEDS: amLODIPine BESYLATE 5 MG TAB PO SCH ×2 (09:47→12:37)
[2021-01-05] MEDS: TELMISARTAN 40 MG TAB PO SCH ×2 (09:48→12:37)
[2021-01-05] MEDS ORDERED: traMADol HCL 50 MG TABLET PO PRN (10:59)
[2021-01-05] MEDS ORDERED: FUROSEMIDE 20 MG in SYRINGE 0 ML IV ONE (11:15)
[2021-01-05] MEDS: SODIUM CHLORIDE 0.9% 1000ML 1,000 ML IV SCH (11:25)
--- NOTE | 2021-01-05 12:46 | Hospitalist Progress Note ---
Date of Service January 05, 2021 Assessment & Plan (1) Degenerative joint disease of left hip: * MRI done today confirming no evidence of fracture but severe OA. * Spoke with Amanuel Tatum PA-C (ortho) who reviewed the MRI with Dr. Duran and agrees- no need for surgical intervention acutely. Awaiting formal consult. Appreciate recommendations * okay to start oral intake, as patient as been NPO for possible need for surgical intervention. * awaiting PT/OT eval. Would appreciate recommendations to ensure safe D/C to home * plan is for likely D/C today with home PT/OT and FU with ortho. (2) Hyponatremia: * chronic and stable. 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 Salter). Patient to adhere to 1500ml fluid rest ricted diet as recommended by nephro along with lasix 10mg 3/week. * sodium level currently acceptable. * will need FU labs as an OP to trend (at discretion of PCP/nephro) (3) Hypertension: * acceptable control, 129/69. * continue home med: norvasc and micardis Admission and Anticipated Discharge Date Admission Date: January 04, 2021 Subjective Patient seen on daily rounds today. She is an 86 y/o WM with a PMHx of chronic hyponatremia, HTN and HLD. She was hospitalized for possibility of a Left hip fracture. No obvious injury/trauma. Pain ongoing x 3 months with a sustained GLF on 12/17. Since, patient has been active. She is ambulatory and has pain in the left hip only with ambulation (which is what prompted her to see her PCP who ordered an OP xray showing concern for fracture). She is active- able to ride her bike/ambulate/etc. No pain at rest. Ortho on consult. MRI ordered showing no acute pathology- severe OA. In regards to sodium level, this is chronic for patient. 129 on admission. Baseline 130-135. Takes lasix 10mg 3x/week (ordered by Nephro). Admits to noncompliance with this as she was unaware as to WHY she was prescribed this medication. Initially, IVF ordered, sodium dropped to 127. IV lasix given x 1 dose. Sodium currently 131. Currently, patient denies F/C, CP, SOB, abd pain, N/V, GI/ symptoms, hip pain at rest. Review of Systems Constitutional: no fever, no chills, no fatigue and no malaise Respiratory: no cough and no dyspnea Cardiovascular: no chest pain, no lightheadedness and no edema Gastrointestinal: no abdominal pain, no nausea and no vomiting Genitourinary: no dysuria, no urinary frequency and no hematuria Musculoskeletal: + joint pain (left hip pain only with ambulation/weight bearing); no back pain, no limited range of motion and no muscle weakness Physical Exam Physical Exam: Selected Entries 01/05/21 11:24 01/05/21 12:27 Temperature 36.6 C Pulse Rate [Right Finger] 74 Respiratory Rate 16 Blood Pressure [Ri ght Arm] 144/74 H Pulse Oximetry 97 Oxygen Delivery Me thod Room Air Constitutional: WD/WN, vitals as above Respiratory: no respiratory distress Auscultation: lungs clear to auscultation bilaterally; no rales, no rhonchi and no wheezes Cardiovascular: Rate/Rhythm: regular rate and regular rhythm Heart Sounds: no gallop, no murmur and no cardiac rub Extremities: no edema Gastrointestinal (Abdomen): Inspection/Auscultation: abdomen normal to inspection; abdomen not distended Percussion/Palpation: abdomen soft; abdomen nontender Musculoskeletal: Extremities: extremities normal to inspection; full ROM of extremities Hip: hip normal to inspection, no deformity and no joint line tenderness no leg lengthy discrepancy . DP/PT pulses intact and symmetrical bilaterally Results & Data Results & Data ([facility]) Vital Signs (Past 12 Hours) Vital Signs Temp Pulse Pulse Resp BP BP Pulse Ox 01/05/21 11:24 36.6 C 74 16 144/74 H 97 01/05/21 06:43 36.6 C 74 18 161/67 H 97 01/05/21 02:53 36.3 C L 70 18 129/69 97 Laboratory Results 01/05/21 07:52 01/05/21 07:52 Diagnostic Findings Xray of hip and pelvis 01/04/21: IMPRESSION: 1. There is an impacted fracture at the left femoral head/neck junction. 2. No additional fracture is identified. 3. Advanced arthritic change and calcified joint bodies are noted in the left hip. Xray of the left knee 01/04/21: IMPRESSION: No acute bony abnormality is identified. MRI of the left hip 01/05/21: IMPRESSION: 1. No acute or subacute fracture. 2. Severe left hip osteoarthritis as detailed above. Associated bone marrow and pericapsular edema is likely on a degenerative basis. 3. Intra-articular loose bodies of the left hip are better seen on comparison radiographs. PG Care Time/CCT Total # of Minutes Spent Total Time Spent with Patient: Total time spent is greater than 50% in coordination of care (as documented) at patient's floor/unit and/or counseling patient: Coding Level of Care Code None Diagnoses Degenerative joint disease of left hip M16.12 Osteoarthritis type: primary Hyponatremia E87.1 Hypertension I10 Hypertension type: essential hypertension Comment discharge to home today. please see D/C summary (1) Degenerative joint disease of left hip Osteoarthritis type: primary Qualified Code(s): M16.12 - Unilateral primary osteoarthritis, left hip (2) Hypertension Hypertension type: essential hypertension Qualified Code(s): I10 - Essential (primary) hypertension
--- NOTE | 2021-01-05 13:06 | Orthopedic Consultation ---
Date of Service January 05, 2021 Assessment & Plan (1) Degenerative joint disease of left hip: She was seen and examined by Dr. Duran. Images were reviewed. She has advanced hip arthritis but no hip fracture. We would recommend PT/OT, weight bearing as tolerated. She can eat today. No urgent surgery. She is a candidate for hip replacement done electively but she does not want any surgery at this point. She has been managing this with tylenol which is reasonable. She can follow up as an outpatient as needed. She is orthopedically stable for discharge. History of Present Illness Reason for Consultation: .Left hip pain Requesting Physician: . Attending Physician: Paul Garces DO . 86 year old female that we were asked to see regarding left hip pain. She said she has had pain for about 4 months, mostly groin pain. She did have a fall a couple of weeks ago but has been ambulating and biking since. She saw her pcp yesterday, had xray which showed a possible fracture and was referred to the ER. She was admitted last night. She is comfortable now. No pain at rest. No other complaints. Previously she would take some tylenol and it helped. Allergies Allergy/AdvReac Type Severity Reaction Status Date / Time No Known Allergies Allergy Verified 01/04/21 11:46 Home Medications Medication Instructions Recorded Confirmed Type aspirin [Aspirin Low Dose] 81 mg PO QPM 12/09/18 01/04/21 History biotin 5 mg PO DAILY 12/09/18 01/04/21 History fish,bora,flax oils-om3,6,9no1 1 cap PO DAILY 12/09/18 01/04/21 History [[place] 3-6-9] garlic 1,000 mg PO DAILY 12/09/18 01/04/21 History magnesium 250 mg PO DAILY 12/09/18 01/04/21 History abkxmqxc-rjy-FX-lycopen-lutein 1 tab PO DAILY 12/09/18 01/04/21 History [Centrum Silver] psyllium husk 0.4 gram capsule 0.8 gm PO DAILY cap 04/29/19 01/04/21 History furosemide 20 mg tablet 20 mg PO DAILY tab 01/05/20 01/04/21 History amlodipine 10 mg tablet 10 mg PO DAILY #90 tab 04/30/20 01/04/21 Rx telmisartan 40 mg tablet 40 mg PO BID #180 tab 07/05/20 01/04/21 Rx cholecalciferol (vitamin D3) 25 25 mcg PO DAILY 01/04/21 01/04/21 History mcg (1,000 unit) capsule clonidine HCl 0.1 mg tablet 0.1 mg PO .COMPLEX PRN tab 01/04/21 01/04/21 History fenofibrate micronized 134 mg 134 mg PO DAILY cap 01/04/21 01/04/21 History capsule ndws-slcze-ck4-obp-rld-obxe-sterols 2 cap PO DAILY cap 01/04/21 01/04/21 History 375 mg-100 mg-36 mg-54 mg capsule triamcinolone acetonide 0.1 % 1 applic TOP DAILY PRN 01/04/21 01/04/21 History topical cream Past Med/Surg History Medical History Chest tightness Chest tightness Hypercholesteremia Hypertension Light-headedness No pertinent family history Surgical History No pertinent past surgical history Family History Brother Stomach cancer Alcohol abuse Diabetes Mother Stomach cancer Colonic polyp Colorectal cancer Father Myocardial infarction Aunt Breast cancer Denies family history of Ovarian cancer Prostate cancer Social History Smoking Status: Never smoker Second Hand Exposure: Yes; Hx Alcohol Use: No Hx Substance Use: No Preferred Language: [place] Communication Ability: Effective Visual Impairment: No Limitations Hearing Ability: Normal Esthetician/Spa Coordinator Required: No Beliefs That Will Affect Care: None marital status: / Current Living Situation: Alone current occupational status: retired Other Information That Helps Us Care for You: No Feels Safe at Home: Yes Safety Concerns: Feels Safe At This Time Childhood Exposure to Second-Hand Smoke: Yes Dental Care, Regularly: Yes Physical Activity Frequency: Daily Seatbelt Use: always Sunscreen Use: No Assistive Devices: Denture - Upper and Glasses Review of Systems All systems reviewed & are unremarkable except as noted in HPI & below. Physical Exam .alert and oriented. NAD Left leg: able to do a good straight leg raise. No pain with motion of her hip. She does have some stiffness. No swelling of her leg. Skin intact. NVI. able to dorsiflex and plantar flex. Results & Data Results & Data Laboratory Results . Diagnostic Findings .xrays show advanced hip DJD. MRI today again shows advanced hip djd. No fracture PG Care Time/CCT Total # of Minutes Spent Total Time Spent with Patient: Total time spent is greater than 50% in coordination of care (as documented) at patient's floor/unit and/or counseling patient: Coding Level of Care Code 16512 Inpt Consult Level 4 Diagnoses Degenerative joint disease of left hip M16.12
--- NOTE | 2021-01-05 13:15 | Electrocardiogram Report ---
Test Reason : Blood Pressure : / mmHG Vent. Rate : 085 BPM Atrial Rate : 085 BPM P-R Int : 226 ms QRS Dur : 136 ms QT Int : 390 ms P-R-T Axes : 053 -47 083 degrees QTc Int : 464 ms Poor data quality, interpretation may be adversely affected Sinus rhythm with 1st degree A-V block Left axis deviation Non-specific intra-ventricular conduction delay Poor R wave progression, consider anterior OK vs. lead placement vs. LVH Abnormal ECG When compared with ECG of 22-FEB-2019 09:57, T wave inversion no longer evident in Inferior leads T wave inversion now evident in Lateral leads Confirmed by Misael Cedeño ([id number]) on 01/05/2021 1:15:04 PM Referred By: Misael Victor Confirmed By:Misael Cedeño
--- NOTE | 2021-01-05 17:21 | Discharge Summary ---
Date of Service January 05, 2021 Admission HPI Per Admitting Provider This is an 86-year-old female past medical history of hypertension hyperlipidemia that presents today with chief complaint hip fracture. Patient is a decent story. Patient was initially seen by her primary care provider earlier today with a complaint of persistent left hip pain. Their documentation as the patient has been having pain for several years but is been worse over the past month. She did note that she had fallen at home on 12/17. She lost her balance and did not strike her head lose consciousness at that time. Patient has been ambulatory since then has been able to continue to drive and care for self. She tells me she use her exercise bike earlier today. She also told me that she was able to use the stairs without any issues. She does use a cane for balance. However, after her primary care visit she had x-rays done which showed an impacted left femoral neck fracture. Patient was started to come to the emergency room for further evaluation. At time my evaluation, the patient was essentially stable. She denied any pain in her left hip and felt well. She said to be surprised that she had to stay in the hospital. Family member at bedside is requesting from orthopedics for any treatment that may be required. Admission Exam Per Admitting Provider Constitutional: cooperative and comfortable; no acute distress Neck: trachea midline, no thyromegaly Respiratory: normal respiratory effort Auscultation: lungs clear to auscultation bilaterally; no crackles, no rales, no rhonchi and no wheezes Cardiovascular: Rate/Rhythm: regular rate and regular rhythm Heart Sounds: normal S1 and normal S2 Gastrointestinal: Inspection/Auscultation: abdomen normal to inspection Percussion/Palpation: abdomen soft; abdomen nontender, no guarding, abdomen not rigid and no hepatosplenomegaly Musculoskeletal: No obvious deformity of either extremity, distal PT and DP pulses intact Skin: no rashes, warm and dry Principal Diagnosis 1. Left hip Pain Discharge Exam Constitutional WD/WN, vitals as above Respiratory no respiratory distress Auscultation: lungs clear to auscultation bilaterally; no rales, no rhonchi and no wheezes Cardiovascular Rate/Rhythm: regular rate and regular rhythm Heart Sounds: no gallop, no murmur and no cardiac rub Extremities: no edema Gastrointestinal (Abdomen) Inspection/Auscultation: abdomen normal to inspection; abdomen not distended Percussion/Palpation: abdomen soft; abdomen nontender Musculoskeletal Extremities: extremities normal to inspection; full ROM of extremities Hip: hip normal to inspection, no deformity and no joint line tenderness Discharge Data Allergies Allergy/AdvReac Type Severity Reaction Status Date / Time No Known Allergies Allergy Verified 01/04/21 11:46 Consultations 01/04/21 15:56 ED Decision to Admit Stat 01/04/21 21:18 Consult Orthopedic Surgery Routine. See recommendations below: She was seen and examined by Dr. Duran. Images were reviewed. She has advanced hip arthritis but no hip fracture. We would recommend PT/OT, weight bearing as tolerated. She can eat today. No urgent surgery. She is a candidate for hip replacement done electively but she does not want any surgery at this point. She has been managing this with tylenol which is reasonable. She can follow up as an outpatient as needed. She is orthopedically stable for discharge. Ordered Studies Xray of hip and pelvis 01/04/21: IMPRESSION: 1. There is an impacted fracture at the left femoral head/neck junction. 2. No additional fracture is identified. 3. Advanced arthritic change and calcified joint bodies are noted in the left hip. Xray of the left knee 01/04/21: IMPRESSION: No acute bony abnormality is identified. MRI of the left hip 01/05/21: IMPRESSION: 1. No acute or subacute fracture. 2. Severe left hip osteoarthritis as detailed above. Associated bone marrow and pericapsular edema is likely on a degenerative basis. 3. Intra-articular loose bodies of the left hip are better seen on comparison radiographs. Hospital Course (1) Degenerative joint disease of left hip: * MRI done today confirming no evidence of fracture but severe OA. * Spoke with Amanuel Tatum PA-C (ortho) who reviewed the MRI with Dr. Duran and agrees- no need for surgical intervention acutely. Awaiting formal consult. Appreciate recommendations * okay to start oral intake, as patient as been NPO for possible need for surgical intervention. * awaiting PT/OT eval. Would appreciate recommendations to ensure safe D/C to home * plan is for likely D/C today with home PT/OT and FU with ortho. (2) Hyponatremia: * chronic and stable. 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 Salter). Patient to adhere to 1500ml fluid restricted diet as recommended by nephro along with lasix 10mg 3/week. * sodium level currently acceptable. * will need FU labs as an OP to trend (at discretion of PCP/nephro) (3) Hypertension: * acceptable control, 129/69. * continue home med: norvasc and micardis Total Time Total Time Spent Total Time Spent (In Minutes): 60 min including time spent reviewing imaging and discussion with consulting providers. Total Time Includes: Examination of the Patient, Discharge Planning, Medication Reconciliation and Communication With Other Providers Discharge Plan Discharge Items Patient Disposition: Home - Self-Care Reason For Visit: rule out Left HIP FRACTURE Discharge Diagnosis: osteoarthritis of the left hip Activity: Resume your previous activity Non-emergency contact: Primary Care Provider Call non-emergency contact if: you have any medication questions, your symptoms worsen, your pain is not controlled and your pain is concerning for you Follow-up/Referrals: Pro,Misael Stone MD [Primary Care Provider] - 01/11/21 2:15 pm (Your appointment is with the physician assitant, Maribel Magana. If you have any questions or need to change this appointment, please call [phone].) Diet: Heart Healthy Addtl Attending Provider Instructions: You were hospitalized for pain in your hip. Your initial Xray showed concern for a Left Hip fracture. MRI has confirmed that there is no evidence of fracture. Progressive degenerative disease noted. Activity may be resumed as tolerated. Use [id number] Tylenol as needed for pain. Tramadol prescribed for breakthrough pain if Tylenol ineffective. Please note that tramadol may cause sedation. Should not operate a motor vehicle/ride her bicycle while taking tramadol. Recommendations: Follow-up with your family practitioner within 7 to 10 days If left hip pain persistent, can consider referral to orthopedics (at discretion of PCP) Return to the ED for any new or worsening symptomatology It is important to take your Lasix 10 mg 3 times a week as prescribed by nephrology. Recommend follow-up with nephrology within 2 weeks. Will need follow up labs to trend sodium level (at discretion of PCP/nephrology) Pending Studies at Discharge: No Stand-Alone Forms: My [facility] [employer] [place] [facility], Opioid Pain Management Medications and DC Order Prescriptions: New furosemide [Lasix] 20 mg tablet 10 mg PO .3 times a week Qty: 15 RF: 0 tramadol 50 mg tablet 50 mg PO Q6H PRN (Reason: pain) Qty: 30 RF: 0 Continued amlodipine 10 mg tablet 10 mg PO DAILY Qty: 90 RF: 3 telmisartan 40 mg tablet 40 mg PO BID Qty: 180 RF: 3 cholecalciferol (vitamin D3) 25 mcg (1,000 unit) capsule 25 mcg PO DAILY RF: 0 fenofibrate micronized 134 mg capsule 134 mg PO DAILY RF: 0 triamcinolone acetonide 0.1 % cream 1 applic TOP DAILY PRN (Reason: DIRECTED) RF: 0 psyllium husk [Metamucil] 0.4 gram capsule 0.8 gm PO DAILY RF: 0 aspirin [Aspirin Low Dose] 81 mg Tablet,Delayed Release (Dr/Ec) 81 mg PO QPM RF: 0 garlic 1,000 mg Capsule 1,000 mg PO DAILY RF: 0 magnesium 250 mg Tablet 250 mg PO DAILY RF: 0 Centrum Silver 0.4-300-250 mg-mcg-mcg Tablet 1 tab PO DAILY RF: 0 biotin 5 mg Tablet 5 mg PO DAILY RF: 0 [place] 3-6-9 1,200 mg Capsule 1 cap PO DAILY RF: 0 Glucosamine Chondroitin PLUS 047-849-04-54 mg capsule 2 cap PO DAILY RF: 0 Discontinued furosemide [Lasix] 20 mg tablet 20 mg PO DAILY RF: 0 Discharge Orders: Discharge Order (Routine); Ordered 01/05/21 Ordered By: Elvira Pace Admission Data Admit Date/Time: 01/04/21 16:05 Attending Provider: Paul Garces Admit Provider: Yusef Knox Primary Care Provider: Misael Victor Other Providers: Yusef Knox ; James Duran Other Interventions: Discharge Summary Assessment (RN) Last Done: 01/05/21 16:27 Supervising Physician Co-Signing Physician Notes Patient seen and examined on the day of discharge. I agree with the discharge summary by Asuncion HALL. I have reviewed the chart including labs, imaging and plans for discharge. patient pleased she does not have a hip fracture on MRI she ambulated well in the hallway with therapy, cleared to return home eating well, breathing well, no GI symptoms A/P: severe hip pain, suspected fracture on x-ray but MRI hip shows no fracture, just arthritic changes Coding Level of Care Code D/C Day Management >30 mins Diagnoses Degenerative joint disease of left hip M16.12 Osteoarthritis type: primary Hyponatremia E87.1 Hypertension I10 Hypertension type: essential hypertension Time Spent (min) 60
== END 2021-01-05 19:30 | disposition home or self-care (01) ==
LOC: ED 13:41 → 2N 16:05 → SUATTDRO 16:05 → INTOOBSV 16:05 → 2N 20:21

== ENCOUNTER 2022-02-17 07:58 | Inpatient (IN) ==
--- NOTE | 2022-02-08 14:59 | PAT Medication Instructions ---
Medication Instructions Date of Service February 08, 2022 Home Medications Medication Instructions Recorded furosemide 20 mg tablet (Lasix) 10 mg PO .3 times a week #15 tabs 01/06/21 fenofibrate micronized 134 mg 134 mg PO DAILY #90 caps 08/29/21 capsule telmisartan 40 mg tablet See Rx Instructions .Route 09/02/21 .COMPLEX #180 tabs Wheeled Walker #1 ea 02/08/22 aspirin 81 mg tablet,delayed release (Fady Low Dose Aspirin) 81 mg PO QPM biotin 5 mg tablet 5 mg PO DAILYBL fish, borage, flaxseed oils-omega 3,6,9 comb no.1 1,200 mg capsule ([place] 3-6-9) 1 cap PO QAM magnesium 250 mg tablet 250 mg PO QPM Centrum Silver 1 tab PO QAM furosemide 20 mg tablet (Lasix) 10 mg PO .3 times a week garlic 1,000 mg capsule 1,000 mg PO BID psyllium husk 0.4 gram capsule (Metamucil) 0.8 g PO BID fenofibrate micronized 134 mg capsule 134 mg PO DAILY telmisartan 40 mg tablet See Rx Instructions .Route .COMPLEX acetaminophen 650 mg tablet,extended release 650 mg PO Q12H PRN Pain peg 400-propylene glycol 0.4 %-0.3 % eye drops (Systane Ultra) 1 drp ophthalmic (eye) BID PRN Dry Eye(S) STOP taking 2 weeks before surgery (or as soon as possible if surgery is within 2 weeks) fish, borage, flaxseed oils-omega 3,6,9 comb no.1 1,200 mg capsule ([place] 3-6-9) 1 cap PO QAM STOP taking 48 hours before surgery fenofibrate micronized 134 mg capsule 134 mg PO DAILY DO NOT take the morning of surgery biotin 5 mg tablet 5 mg PO DAILYBL Centrum Silver 1 tab PO QAM furosemide 20 mg tablet (Lasix) 10 mg PO .3 times a week psyllium husk 0.4 gram capsule (Metamucil) 0.8 g PO BID telmisartan 40 mg tablet See Rx Instructions .Route .COMPLEX Take morning of surgery With a small sip of water, OTHERWISE NOTHING TO EAT OR DRINK AFTER MIDNIGHT: acetaminophen 650 mg tablet,extended release 650 mg PO Q12H PRN Pain (if needed) peg 400-propylene glycol 0.4 %-0.3 % eye drops (Systane Ultra) 1 drp ophthalmic (eye) BID PRN Dry Eye(S) (if needed) Take evening before surgery aspirin 81 mg tablet,delayed release (Fady Low Dose Aspirin) 81 mg PO QPM (continue as normal unless told otherwise by surgeon) magnesium 250 mg tablet 250 mg PO QPM psyllium husk 0.4 gram capsule (Metamucil) 0.8 g PO BID telmisartan 40 mg tablet See Rx Instructions .Route .COMPLEX acetaminophen 650 mg tablet,extended release 650 mg PO Q12H PRN Pain (if needed) peg 400-propylene glycol 0.4 %-0.3 % eye drops (Systane Ultra) 1 drp ophthalmic (eye) BID PRN Dry Eye(S) (if needed) Other Notes If you have any questions please call us at [phone] or [phone] or [phone] or [phone]
--- NOTE | 2022-02-10 12:09 | Anesthesiology Consultation ---
Date of Service February 10, 2022 Assessment & Plan (1) Encounter for pre-operative examination: - COVID screening: Per assessment on 02/10: No known COVID-19 positive contacts or current COVID-19 related symptoms. Travel screen negative. Patient vaccinated. Surgeon arranging preop COVID testing. Awaiting results. - Hyponatremia: Sodium 126 on preop testing done 02/10/22. Pt with chronic, long- term hx of hyponatremia with fluctuating levels in the high 120s to low 130s. Remotely seen by nephrology. No known etiology found. Workload message sent to PCP regarding hyponatremia/optimization. Received response from PCP that he wishes to have patient seen in the office for further evaluation. Awaiting PCP optimization ([facility]; appt date TBD). Chart Review Chart Review: Patient seen in Pre Admission Testing Teaching & Discussion Pre-Anesthesia Teaching/Discussion Notes: Instructed NPO after midnight before surgery,except medications with 15 cc of water. Medication instructions provided according to the PAT guidelines. History Surgery Operation Date: 02/17/22 12:30 Proposed Procedures p Left Total Hip Arthroplasty - James Duran MD Height/Weight Height: 5 ft 2 in Weight: 52.4 kg Allergies Allergy/AdvReac Type Severity Reaction Status Date / Time No Known Allergies Allergy Verified 02/08/22 13:51 Medications Home Medications Medication Instructions Recorded Confirmed Last Taken aspirin 81 mg tablet,delayed 81 mg PO QPM 12/09/18 02/08/22 12/08/18 release (Fady Low Dose Aspirin) biotin 5 mg tablet 5 mg PO DAILYBL 12/09/18 02/08/22 12/08/18 fish, borage, flaxseed oils-omega 1 cap PO QAM 12/09/18 02/08/22 12/08/18 3,6,9 comb no.1 1,200 mg capsule ([place] 3-6-9) magnesium 250 mg tablet 250 mg PO QPM 12/09/18 02/08/22 12/08/18 [id number]-[id number] acid 0.4 1 tab PO QAM 12/09/18 02/08/22 12/08/18 mg-lycopene 300 mcg-lutein 250 mcg tablet (Centrum Silver) furosemide 20 mg tablet (Lasix) 10 mg PO .3 times a week #15 tabs 01/06/2102/08 Unknown garlic 1,000 mg capsule 1,000 mg PO BID 01/06/21 02/08/22 Unknown psyllium husk 0.4 gram capsule 0.8 g PO BID 01/06/21 02/08/22 Unknown (Metamucil) fenofibrate micronized 134 mg 134 mg PO DAILY #90 caps 08/29/21 02/08/22 Unknown capsule telmisartan 40 mg tablet See Rx Instructions .Route 09/02/21 02/08/22 Unknown .COMPLEX #180 tabs Wheeled Walker #1 ea 02/08/22 02/08/22 Unknown acetaminophen 650 mg 650 mg PO Q12H PRN Pain 02/08/22 02/08/22 Unknown tablet,extended release peg 400-propylene glycol 0.4 %-0.3 1 drp ophthalmic (eye) BID PRN Dry 02/08/22 02/08/22 Unknown % eye drops (Systane Ultra) Eye(S) Past Medical History Medical History Acute hip pain Arthritis Hypercholesteremia Hypertension Hyponatremia Chronic with fluctuating levels in the high 120s to low 130s Unclear etiology per remote nephrology notes Exercise / Class Metabolic Activity III < 4 Walking/Shop/Light housework (No CP, no SOB (walking, housework)) Past Family History Family History Brother Stomach cancer Alcohol abuse Diabetes Mother Stomach cancer Colonic polyp Colorectal cancer Father Myocardial infarction Aunt Breast cancer Denies family history of Ovarian cancer Prostate cancer Past Surgical History Surgical History (Updated 02/10/22 @ 12:22 by Gina Fletcher) No pertinent past surgical history Past Anesthesia History No Hx of Anesthesia Complications and No Family Hx of Anesthesia Complications History of PONV No Hx of PONV and No Hx of Motion Sickness Social History Smoking Status: Never smoker Do You Dip or Chew Tobacco: No Hx Alcohol Use: No Hx Substance Use: No substance use type: does not use Review of Systems Patient denies chest pain, shortness of breath, fever, chills, cough, wheezing, palpitations. Physical Exam Vital Signs VITALS BP 140/60 P 70 TEMP 96.8 SP02 96%RA RESP 16 PHYSICAL Full cervical extension range of motion. Full TMJ range of motion. TMD 3 finger breaths Mallampati Score 1 Dentition: full upper denture Lungs: clear throughout to auscultation Cardiac: regular rate and rhythm, no murmurs noted Spine: normal Carotid arteries: negative bruit Extremities: no edema Lab Results Anesthesia Preop Results Results Anesthesia Widget: WBC 9.81 K/uL (4.8-10.8) 01/10/22 Hgb 13.4 g/dL (12.0-16.0) 01/10/22 Hct 40.7 % (37-47) 01/10/22 Plt 418 K/uL (130-400) H 01/10/22 Na 126 mmol/L (136-145) L 02/10/22 K 4.6 mmol/L (3.5-5.1) 02/10/22 Cl 93 mmol/L (98-107) L 02/10/22 CO2 26 mmol/L (21-32) 02/10/22 BUN 18 mg/dl (6-23) 02/10/22 Creat 0.60 mg/dl (0.6-1.2) 02/10/22 Glucose Level 109 mg/dl (70-99(Fasting)) H 02/10/22 PT 10.8 Seconds (9.0-12.0) 02/10/22 PTT 29.5 Seconds (21.0-31.0) 02/10/22 INR 1.0 (0.9-1.1) 02/10/22 Blood Type O Positive 02/10/22 Antibody Screen NEGATIVE 02/10/22 Testing Electrocardiogram Date: 02/10/22 SR with PSVCs at 77bpm. LAD. NS IVCD. Cannot r/o anterior infarct. Compared to 01/04/21, PSVCs now present per cardiology comparison. Chest X-Ray Date: 02/10/22 FINDINGS: The cardiomediastinal and hilar silhouettes are within normal limits. No pneumothorax, large pleural effusion or overt pulmonary edema. There is chronic blunting of the right lateral costophrenic angle with mild right hemidiaphragmatic elevation. Degenerative changes of the shoulders and spine. IMPRESSION: No acute process.
[~2022-02-17 07:58] MED LIST changes: +ACETAMINOPHEN 500 MG TAB PO SCH; -ASPI81TA28 PO; -BIOTCAP2 PO; +BUPIVACAINE 0.5 % 5 MG/1 ML PF 10ML VIAL ONE; -CALC600T9 PO; +CeleBREX 200 MG CAP PO SCH; +FAMOTIDINE 20 MG TAB PO SCH; -FENO134C2 PO; -GARL10007 PO; -GLUCTAB7 PO; +LR 500ML BOLUS, THEN 15ML/HR IV SCH; +LR 60ML/HR IV SCH; -MAGN250T22 PO; +METOCLOPRAMIDE HCL 10 MG TABLET PO SCH; -MULT-506 PO; -OMEG10007 PO; -OMEG1CAP71 PO; -PSYL0.524 PO; -TELM40TA11 PO; +TRANEXAMIC ACID 1,000 MG **IV Pre-op IV SCH; +ceFAZolin 2000MG 2,000 MG/15 ML SYR IV SCH
[2022-02-17] MEDS ORDERED: fentaNYL citrate 100 MCG/2 ML VIAL ONE ×3 (08:14→13:04)
[2022-02-17] MEDS ORDERED: MIDAZOLAM HCL 1 MG/ML 2ML VIAL ONE (08:14)
[2022-02-17] MEDS ORDERED: PROPOFOL IV EMULSION 10 MG/ML 20 ML VIAL IV ONE (08:14)
[2022-02-17] MEDS ORDERED: LIDOCAINE 2% 20 MG/ML 5 ML SYR IV ONE (08:14)
[2022-02-17] MEDS ORDERED: SODIUM CHLORIDE 0.9% INJ 10 ML VIAL ONE (08:27)
[2022-02-17 09:12] LABS: BUN Creatinine Ratio 47.1 (10-20); Calcium 9.6 mg/dl (8.5-10.1); Creatinine Clr Calc Pharmacy 62.6 ml/min; Est GFR (African American) 100.9 ml/min; Est GFR (Non-African American) 87.1 ml/min; Potassium 4.1 mmol/L (3.5-5.1)
--- NOTE | 2022-02-17 09:18 | History & Physical Bridge Note ---
Date of Service February 17, 2022 History & Physical Bridge Note I have examined the patient, reviewed the History & Physical and in the interval since the performance of the History & Physical I have noted the following changes of clinical significance: no changes noted
[2022-02-17] MEDS ORDERED: BUPIVACAINE 0.5 % 5 MG/1 ML MPF 30ML VIAL ONE (09:30)
[2022-02-17] MEDS ORDERED: EPINEPHrine INJ 1 MG/ML AMP ONE (09:30)
[2022-02-17] MEDS ORDERED: PROMETHAZINE HCL 6.25 MG in SODIUM CHLORIDE 0.9% 50 ML IV PRN (10:56)
[2022-02-17] MEDS ORDERED: ATROPINE SULFATE 0.1 MG/ML 10ML SYR IV PRN (10:56)
[2022-02-17] MEDS ORDERED: HYDROmorphone INJ 1 MG/ML SYRINGE IV PRN (10:56)
[2022-02-17] MEDS ORDERED: ONDANSETRON INJ 2 MG/ML 2 ML VIAL IV PRN ×2 (10:56→15:37)
[2022-02-17] MEDS ORDERED: KETOROLAC 30 MG/ML VIAL IV PRN (10:56)
[2022-02-17] MEDS ORDERED: ONDANSETRON INJ 2 MG/ML 2 ML VIAL ONE (11:52)
[2022-02-17] MEDS ORDERED: DEXAMETHASONE SOD INJ 4 MG/ML VIAL ONE (11:52)
[2022-02-17] MEDS ORDERED: NEOSTIGMINE METHYLSULFATE 1 MG/ML 10ML VIAL ONE (12:44)
[2022-02-17] MEDS ORDERED: GLYCOPYRROLATE 0.2 MG/ML VIAL ONE (12:44)
--- NOTE | 2022-02-17 13:25 | Operative Report ---
[facility] Post Operative Report Pre & Post Diagnosis Operation Date: 02/17/22 10:40 Pre-Op Diagnosis: Degenerative Joint Disease Hip Left Post-Op Diagnosis: Degenerative Joint Disease Hip Left I identified the patient and participated in the time-out.: Yes Procedure Operation Date: 02/17/22 10:40 Actual Procedures p Left Total Hip Arthroplasty(Left) - James Duran MD Surgeon James Duran MD Information Security Manager Amanuel Tatum PA-C Estimated Blood Loss 100 Findings Consistent with Post-Op Diagnosis Operative findings were advanced left hip DJD. Extensive grade 4 [id number]-[id number] disease and erosive disease of the femoral head and acetabulum. Fairly large acetabular osteophytes along with osteophytes around the femoral head. Fluids 1000 cc Specimens Left femoral head sent for pathology Drains None Anesthesia Type General Complications none Disposition Accompanied Patient To Recovery: No Indications Patient is an 87-year-old quite healthy and active female has had a several year history of increasing left hip pain discomfort is just become unbearable over the past several years. She had trouble getting around at all. She was optimally medically optimized and elected proceed with total hip arthroplasty in hopes of maintaining some degree of independence and active lifestyle. Description of Procedure Operative implants consist of: 1 Biomet G7 size 54 mm acetabular shell. 2. [place] hole communications technologist. 3. 6.5 cancellous acetabular screws 1 of 35 mm in length by 30 mm length. 4. Highly cross-linked polyethylene liner with a 54 mm outer diam and 36 mm inner diameter. 5. DePuy [place] size 2 standard offset cemented femoral stem. 3. +5/36 mm metal articular ball. The patient was taken the operating, identified, placed on the operating table supine position protectors were properly padded. IV antibiotics tried by anesthesia team. A general anesthetic was implemented by the anesthesia team. The patient then placed in the right lateral decubitus position. An axillary roll was placed. A [place] hip positioner was used for positioning. Left hip and leg were then prepped and draped in usual sterile fashion. A posterolateral approach to the left hip was then performed through a curvilinear incision centered over the greater trochanter. Sharp dissection Through subcutaneous tissue down to the IT band gluteal fascia the IT band gluteal fascia/longitudinally in line with skin incision. The underlying greater bursa was excised. The piriformis and external rotators were tagged and taken off the posterior aspect of the femur. Great care was taken throughout the procedure protect the sciatic nerve at all times. The posterior capsulotomy was then performed leaving a large flap for later repair. Hip was internally rotated and dislocated. Femoral neck osteotomy cut was made with a Final Cut about 10 mm above the lesser trochanter. Femoral head was removed and sent for pathology. The femur was retracted anteriorly. Attention drawn the acetabulum. Several large acetabular osteophytes were removed. Pulmonary fat was excised. Sequential reaming the acetabular was then performed begin with size 43 and progressing up to 53. I reamed a little bit with a 54 reamer and then placed a 54 mm Biomet G7 acetabular shell in about 40 degrees lateral opening and 20 degrees of anteversion. It was fixed with two 6.5 cancellous acetabular screws. Trial liner was placed. Some anterior and posterior osteophytes were removed. Attention drawn the femur. The proximal femur was entered with a [employer] cutter followed by canal finder and lateralizing reamer. I then broached begin the size 1 and progressing go to. We got really tight fit with a 2 so we elected to use this. I trialed the hip and the +5 articular ball provide full stability, equal leg lengths and appropriate soft tissue tension. I elect to place these implants. Nupathe all trial implants were removed. Bone cement restrictor was then placed in the femoral canal. The trial liner was placed in a highly cross-linked polyethylene guide dog trainer with impacted. A double batch [place] G cement was mixed and injected in the femoral canal and up to a size 2 [place] cemented femoral stem was then placed. All extraneous cement was removed. Once the cement hardened a +5/36 mm metal articular ball was placed and the hip was located. Is found to be stable. Attention drawn toward closing. The wound was irrigated scope sounds pulsatile lavage solution. I did inject locally with about 45 cc of half percent Marcaine with epinephrine. Posterior capsule and external rotators were repaired through drill from the posterior trochanter with #2 Tycron suture. The IT band gluteal fascia then closed in 1 PDS suture running fashion. Subcutaneous tissue was then closed with 2 layers with a deep layer #1 Vicryl suture and subcutaneous tissues with 2 Dexon suture in a buried interrupted fashion. Skin was closed skin edilson. Leg was then cleaned and dried a sterile dressing was Xeroform, 4 x 4's, ABD pad, foam tape was applied. The patient then brought out of general anesthesia and transferred to the recovery room in stable condition. Patient tolerated procedure well and there were no complications. Amanuel Tatum, my physician certified pathology assistant, was present for the entire procedure. His assistance was essential and required for appropriate patient positioning, prepping and draping, surgical exposure, performing the technical details of the operation, placement the implants, closure of the wound, and placement of the sterile bandage. I attest to the content of the Intraoperative Record and any orders documented therein. Any exceptions are noted below.
--- NOTE | 2022-02-17 14:03 | XRay Report ---
XR hip 1V LT w pelvis HISTORY: 87 years-old Female IN PACU - A/P PELVIS and LATERAL HIP left hip total joint arthroplasty COMPARISON: Chest radiographs 07/20/2021 TECHNIQUE: AP view of the pelvis with crosstable lateral view of the left hip FINDINGS: Severe right hip osteoarthritis. Left hip total joint arthroplasty demonstrates satisfactory alignmen t. No acute fracture or unexpected opaque foreign body. Lateral skin edilson are present along with e xpected postoperative soft tissue swelling with deep tissue air. IMPRESSION: Left hip total joint arthroplasty with expected postoperative changes. ACT 112: Negative or not required by law. The above report was generated using voice recognition software. It may contain grammatical, syntax o r spelling errors. Electronically signed by: Elías Mario M.D. 02/17/2022 2:01 PM
--- NOTE | 2022-02-17 14:12 | Anesthesiology Progress Note ---
Date of Service February 17, 2022 Anesthesia Post Procedure Vital Signs Vital Signs: Temp Pulse Resp BP Pulse Ox O2 Del Method O2 Flow Rate 02/17/22 13:45 77 14 171/54 H 98 Oxymask 3 02/17/22 13:35 82 12 162/78 H 99 Oxymask 3 02/17/22 14:05 99.1 F 89 22 144/74 H 95 Room Air 02/17/22 13:55 99.1 F 70 10 L 161/58 H 98 Room Air 02/17/22 13:25 92 H 11 L 216/71 H 100 Oxymask 4 02/17/22 13:19 98.4 F 88 12 131/98 100 Oxymask 5 02/17/22 08:28 98.6 F 86 20 150/70 H 98 Room Air Transfer of Care Handoff Completed per policy Notes Mental Status: alert / awake / arousable and participated in evaluation Patient Amnestic to Procedure: Yes Nausea / Vomiting: adequately controlled Pain: adequately controlled Airway Patency, RR, SpO2: stable & adequate BP & HR: stable & adequate Hydration State: stable & adequate Anesthetic Complications: no major complications apparent and Pt Satisfied with anesthetic care
[2022-02-17] MEDS ORDERED: bisacodyL 10 MG SUPP PR PRN (15:37)
[2022-02-17] MEDS ORDERED: traMADol HCL 50 MG TABLET PO PRN (15:37)
[2022-02-17] MEDS ORDERED: NALOXONE HCL 0.4 MG/1 ML VIAL/CARP IV PRN (15:37)
[2022-02-17] MEDS ORDERED: MAGNESIUM HYDROXIDE SUSP 30 ML UDC PO PRN (15:37)
[2022-02-17] MEDS ORDERED: SODIUM CHLORIDE 0.9% 1000ML 1,000 ML IV SCH (15:37)
[2022-02-17] MEDS ORDERED: HYDROmorphone INJ 0.5 MG/0.5 ML SYR IV PRN (15:37)
[2022-02-17] MEDS ORDERED: ALUMINUM/MAGNESIUM SUSP 30 ML UDC PO PRN (15:37)
[2022-02-17] MEDS ORDERED: METOCLOPRAMIDE HCL INJ 5 MG/ML 2 ML VIAL IV PRN (15:37)
--- NOTE | 2022-02-17 15:54 | History & Physical Report ---
Date of Service February 17, 2022 Assessment & Plan (1) Hyponatremia: Plan: Silvia is a 87-year-old female with a history of labile blood pressure, hyponatremia, hyperlipidemia who underwent total hip arthroplasty on 02/17/2022 for DJD of the left hip. We have been consulted for postoperative medical management. S/p total hip arthroplasty 02/17/2022 of left hip Pain control, ambulation, DVT prophylaxis per primary team Hyponatremia Longstanding creatinine between high 120s and low 130s Has followed with nephrology as outpatient in the past, unclear etiology. 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 May continue Lasix 3 times weekly. Hypertension On telmisartan SALES ADVISOR Normotensive postop Previously on Norvasc, now on telmisartan twice daily Hold telmisartan until postop day 12, resume day 1 if hypertensive and creatinine normal otherwise resume on day 2 BMP daily (2) Hypercholesteremia: (3) Hypertension: (4) Degenerative joint disease of left hip: Admission and Anticipated Discharge Date Admission Date: February 17, 2022 History of Present Illness Primary Care Provider: Misael Victor MD Allergies Allergy/AdvReac Type Severity Reaction Status Date / Time No Known Allergies Allergy Verified 02/17/22 08:22 Home Medications Medication Instructions Recorded Confirmed Type aspirin 81 mg tablet,delayed 81 mg PO QPM 12/09/18 02/17/22 History release (Fady Low Dose Aspirin) biotin 5 mg tablet 5 mg PO DAILYBL 12/09/18 02/17/22 History fish, borage, flaxseed oils-omega 1 cap PO QAM 12/09/18 02/17/22 History 3,6,9 comb no.1 1,200 mg capsule ([place] 3-6-9) magnesium 250 mg tablet 250 mg PO QPM 12/09/18 02/17/22 History zchmbyxk-dhk-skyfh acid 0.4 1 tab PO QAM 12/09/18 02/17/22 History mg-lycopene 300 mcg-lutein 250 mcg tablet (Centrum Silver) furosemide 20 mg tablet (Lasix) 10 mg PO .3 times a week #15 tabs 01/06/21 02/17/22 Rx garlic 1,000 mg capsule 1,000 mg PO BID 01/06/21 02/17/22 History psyllium husk 0.4 gram capsule 0.8 g PO BID 01/06/21 02/17/22 History (Metamucil) fenofibrate micronized 134 mg 134 mg PO DAILY #90 caps 08/29/21 02/17/22 Rx capsule Wheeled Walker #1 ea 02/08/22 02/15/22 Rx acetaminophen 650 mg 650 mg PO Q12H PRN Pain 02/08/22 02/17/22 History tablet,extended release peg 400-propylene glycol 0.4 %-0.3 1 drp ophthalmic (eye) BID PRN Dry 02/08/22 02/17/22 History % eye drops (Systane Ultra) Eye(S) telmisartan 40 mg tablet (Micardis) See Rx Instructions .Route .COMPLEX 02/17/22 02/17/22 History Past Med/Surg History Medical History Acute hip pain Arthritis Hypercholesteremia Hypertension Hyponatremia Surgical History No pertinent past surgical history Family History Brother Stomach cancer Alcohol abuse Diabetes Mother Stomach cancer Colonic polyp Colorectal cancer Father Myocardial infarction Aunt Breast cancer Denies family history of Ovarian cancer Prostate cancer Social History Smoking Status: Never smoker Second Hand Exposure: Yes; Do You Dip or Chew Tobacco: No; Tobacco Cessation Education Requested by Patient: No Hx Alcohol Use: No Hx Substance Use: No Preferred Language: Romansh Communication Ability: Effective Visual Impairment: No Limitations Hearing Ability: Normal Benefits Representative Required: No Beliefs That Will Affect Care: None marital status: / Current Living Situation: Alone current occupational status: retired Other Information That Helps Us Care for You: No (planning on going to rehab facility at d/c) Feels Safe at Home: Yes Safety Concerns: Feels Safe At This Time Childhood Exposure to Second-Hand Smoke: Yes Dental Care, Regularly: Yes Physical Activity Frequency: Daily Seatbelt Use: always Sunscreen Use: No Assistive Devices: Denture - Upper and Glasses Review of Systems Review of Systems: All systems reviewed & are unremarkable except as noted in Subjective Physical Exam Physical Exam: General: A&Ox3. NAD. Cooperative. HEENT: Atraumatic, normocephalic. Vision/hearing intact grossly Pulm: CTAB A&P. -wheezes, -rales, -rhonchi. Symmetrical chest rise. No increased work of breathing. No respiratory distress. Cardiac: RRR, -mrg. Radial pulses intact and symmetrical. Abdominal: Nontender, nondistended, soft. BS present. Ext: Able to wiggle toes bilat, sensation to soft touch in feet bilat without asymmetry. PT pulses intact bilaterally. Tow Motor Mechanic strength intact bilat. L knee in post-op wrap/dressing C/D/I. Results & Data Results & Data ([facility]) Vital Signs (Past 12 Hours) Vital Signs Temp Pulse Pulse Resp BP Pulse Ox O2 Del Method 02/17/22 15:25 36.4 C L 85 18 124/71 94 Room Air 02/17/22 15:15 77 19 118/51 L 96 Room Air 02/17/22 15:00 79 20 121/64 98 Room Air 02/17/22 14:45 37 C 76 17 135/75 98 Room Air 02/17/22 14:30 83 17 149/65 H 92 Room Air 02/17/22 14:15 37.3 C 78 14 137/60 95 Room Air 02/17/22 13:45 77 14 171/54 H 98 Oxymask 02/17/22 13:35 82 12 162/78 H 99 Oxymask 02/17/22 14:05 37.3 C 89 22 144/74 H 95 Room Air 02/17/22 13:55 37.3 C 70 10 L 161/58 H 98 Room Air 02/17/22 13:25 92 H 11 L 216/71 H 100 Oxymask 02/17/22 13:19 36.9 C 88 12 131/98 100 Oxymask 02/17/22 08:28 37.0 C 86 20 150/70 H 98 Room Air O2 Flow Rate 02/17/22 15:25 02/17/22 15:15 02/17/22 15:00 02/17/22 14:45 02/17/22 14:30 02/17/22 14:15 02/17/22 13:45 3 02/17/22 13:35 3 02/17/22 14:05 02/17/22 13:55 02/17/22 13:25 4 02/17/22 13:19 5 02/17/22 08:28 Code Status & VTE Plan VTE Prophylaxis Plan VTE Prophylaxis will be ordered: Yes PG Care Time/CCT Total # of Minutes Spent Total Time Spent with Patient: Total time spent is greater than 50% in coordination of care (as documented) at patient's floor/unit and/or counseling patient: Coding Diagnoses Hyponatremia E87.1 Hypercholesteremia E78.00 Hypertension I10 Hypertension type: essential hypertension Degenerative joint disease of left hip M16.12 Osteoarthritis type: primary (1) Hypertension Hypertension type: essential hypertension Qualified Code(s): I10 - Essential (primary) hypertension (2) Degenerative joint disease of left hip Osteoarthritis type: primary Qualified Code(s): M16.12 - Unilateral primary osteoarthritis, left hip
--- NOTE | 2022-02-17 16:31 | Hospitalist Consultation ---
Date of Consultation February 17, 2022 Assessment & Plan (1) Hyponatremia: Silvia is a 87-year-old female with a history of labile blood pressure, hyponatremia, hyperlipidemia who underwent total hip arthroplasty on 02/17/2022 for DJD of the left hip. We have been consulted for postoperative medical management. S/p total hip arthroplasty 02/17/2022 of left hip Pain control, ambulation, DVT prophylaxis per primary team Pain adequately controlled at bedside, neurovascularly intact on exam Hyponatremia Longstanding creatinine between high 120s and low 130s Has followed with nephrology as outpatient in the past, unclear etiology. 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 May continue Lasix 3 times weekly. Should have a BMP within 1 week after discharge to ensure stability Hypertension On telmisartan CMV DRIVER Normotensive postop Previously on Norvasc, now on telmisartan twice daily Hold telmisartan until postop day 12, resume day 1 if hypertensive and creatinine normal otherwise resume on day 2 BMP daily (2) Hypercholesteremia: (3) Hypertension: (4) Degenerative joint disease of left hip: History of Present Illness Attending Physician: James Duran MD History of Present Illness Brenda is seen at the bedside postoperatively. She reports that she feels well, and currently has no pain whatsoever and thinks that the pain medicine must not have worn off yet. She denies chest pain, chest pressure, lightheadedness, dizziness, nausea, vomiting, diarrhea, constipation, global weakness, and focal weakness. She reports her sodium has always been low, and tends to fluctuate. She has not had recent issues with constipation or weakness as a result of it. Is okay with fluid restriction, and reports she is normally compliant with 3 times weekly Lasix which has helped. She has no questions or concerns at bedside. Medical History: Reviewed Medications: Reviewed Surgical History: Reviewed Allergies: Reviewed Social History: No tobacco/alcohol use Code Status: Full Code Allergies Allergy/AdvReac Type Severity Reaction Status Date / Time No Known Allergies Allergy Verified 02/17/22 08:22 Home Medications Medication Instructions Recorded Confirmed Type aspirin 81 mg tablet,delayed 81 mg PO QPM 12/09/18 02/17/22 History release (Fady Low Dose Aspirin) biotin 5 mg tablet 5 mg PO DAILYBL 12/09/18 02/17/22 History fish, borage, flaxseed oils-omega 1 cap PO QAM 12/09/18 02/17/22 History 3,6,9 comb no.1 1,200 mg capsule ([place] 3-6-9) magnesium 250 mg tablet 250 mg PO QPM 12/09/18 02/17/22 History hfcqnoxb-iea-yzbrt acid 0.4 1 tab PO QAM 12/09/18 02/17/22 History mg-lycopene 300 mcg-lutein 250 mcg tablet (Centrum Silver) furosemide 20 mg tablet (Lasix) 10 mg PO .3 times a week #15 tabs 01/06/21 02/17/22 Rx garlic 1,000 mg capsule 1,000 mg PO BID 01/06/21 02/17/22 History psyllium husk 0.4 gram capsule 0.8 g PO BID 01/06/21 02/17/22 History (Metamucil) fenofibrate micronized 134 mg 134 mg PO DAILY #90 caps 08/29/21 02/17/22 Rx capsule Wheeled Walker #1 ea 02/08/22 02/15/22 Rx acetaminophen 650 mg 650 mg PO Q12H PRN Pain 02/08/22 02/17/22 History tablet,extended release peg 400-propylene glycol 0.4 %-0.3 1 drp ophthalmic (eye) BID PRN Dry 02/08/22 02/17/22 History % eye drops (Systane Ultra) Eye(S) telmisartan 40 mg tablet (Micardis) See Rx Instructions .Route .COMPLEX 02/17/22 02/17/22 History Patient History Medical History Acute hip pain Arthritis Hypercholesteremia Hypertension Hyponatremia Chronic with fluctuating levels in the high 120s to low 130s Unclear etiology per remote nephrology notes Surgical History No pertinent past surgical history Family History Brother Stomach cancer Alcohol abuse Diabetes Mother Stomach cancer Colonic polyp Colorectal cancer Father Myocardial infarction Aunt Breast cancer Denies family history of Ovarian cancer Prostate cancer Social History Smoking Status: Never smoker Second Hand Exposure: Yes; Do You Dip or Chew Tobacco: No; Tobacco Cessation Education Requested by Patient: No Hx Alcohol Use: No Hx Substance Use: No Preferred Language: Greenlandic Communication Ability: Effective Visual Impairment: No Limitations Hearing Ability: Normal Lathe Tender Required: No Beliefs That Will Affect Care: None marital status: / Current Living Situation: Alone current occupational status: retired Other Information That Helps Us Care for You: No (planning on going to rehab facility at d/c) Feels Safe at Home: Yes Safety Concerns: Feels Safe At This Time Childhood Exposure to Second-Hand Smoke: Yes Dental Care, Regularly: Yes Physical Activity Frequency: Daily Seatbelt Use: always Sunscreen Use: No Assistive Devices: Denture - Upper and Glasses Review of Systems Review of Systems: All systems reviewed & are unremarkable except as noted in Subjective Physical Exam Physical Exam: General: A&Ox3. NAD. Cooperative. HEENT: Atraumatic, normocephalic. Vision/hearing intact grossly Pulm: CTAB A&P. -wheezes, -rales, -rhonchi. Symmetrical chest rise. No increased work of breathing. No respiratory distress. Cardiac: RRR, -mrg. Radial pulses intact and symmetrical. Abdominal: Nontender, nondistended, soft. BS present. Ext: Able to wiggle toes bilat, sensation to soft touch in feet bilat without asymmetry. PT pulses intact bilaterally. Logging Equipment Operator strength intact bilat. L knee in post-op wrap/dressing C/D/I. Results & Data Results & Data ([facility]) Vital Signs (Past 12 Hours) Vital Signs Temp Pulse Pulse Resp BP BP Pulse Ox 02/17/22 15:54 36.4 C L 79 16 124/68 95 02/17/22 15:25 36.4 C L 85 18 124/71 94 02/17/22 15:15 77 19 118/51 L 96 02/17/22 15:00 79 20 121/64 98 02/17/22 14:45 37 C 76 17 135/75 98 02/17/22 14:30 83 17 149/65 H 92 02/17/22 14:15 37.3 C 78 14 137/60 95 02/17/22 13:45 77 14 171/54 H 98 02/17/22 13:35 82 12 162/78 H 99 02/17/22 14:05 37.3 C 89 22 144/74 H 95 02/17/22 13:55 37.3 C 70 10 L 161/58 H 98 02/17/22 13:25 92 H 11 L 216/71 H 100 02/17/22 13:19 36.9 C 88 12 131/98 100 02/17/22 08:28 37.0 C 86 20 150/70 H 98 O2 Del Method O2 Flow Rate 02/17/22 15:54 Room Air 02/17/22 15:25 Room Air 02/17/22 15:15 Room Air 02/17/22 15:00 Room Air 02/17/22 14:45 Room Air 02/17/22 14:30 Room Air 02/17/22 14:15 Room Air 02/17/22 13:45 Oxymask 3 02/17/22 13:35 Oxymask 3 02/17/22 14:05 Room Air 02/17/22 13:55 Room Air 02/17/22 13:25 Oxymask 4 02/17/22 13:19 Oxymask 5 02/17/22 08:28 Room Air PG Care Time/CCT Total # of Minutes Spent Total Time Spent with Patient: Total time spent is greater than 50% in coordination of care (as documented) at patient's floor/unit and/or counseling patient: Coding Level of Care Code 46680 Inpt Consult Level 3 Diagnoses Hyponatremia E87.1 Hypercholesteremia E78.00 Hypertension I10 Hypertension type: essential hypertension Degenerative joint disease of left hip M16.12 Osteoarthritis type: primary (1) Hypertension Hypertension type: essential hypertension Qualified Code(s): I10 - Essential (primary) hypertension (2) Degenerative joint disease of left hip Osteoarthritis type: primary Qualified Code(s): M16.12 - Unilateral primary osteoarthritis, left hip
[2022-02-17] MEDS: ACETAMINOPHEN 500 MG TAB PO SCH ×2 (16:36→23:19)
[2022-02-17] MEDS: KETOROLAC TROMETHAMINE 15 MG/ML VIAL IV SCH ×2 (16:36→23:20)
[2022-02-17] MEDS: ASCORBIC ACID 500 MG TAB PO SCH (17:18)
[2022-02-17] MEDS: ceFAZolin 1000MG 1,000 MG/7.5 ML SYR IV SCH (18:26)
[2022-02-17] MEDS ORDERED: TRANEXAMIC ACID / 0.7% NACL 1,000 MG/100 ML BAG IV SCH (19:15)
[2022-02-17] MEDS: SENNA 8.6 MG TAB PO SCH (20:26)
[2022-02-17] MEDS: MAGNESIUM OXIDE 400 MG TAB PO SCH (20:26)
[2022-02-17] MEDS: ASPIRIN 81 MG ECTAB PO SCH (20:26)
[2022-02-17] MEDS: DOCUSATE SODIUM 100 MG CAP PO SCH (20:27)
[2022-02-17] MEDS: PSYLLIUM or GUAR GUM FIBER POWDER PACKET PO SCH (20:27)
[2022-02-17] MEDS ORDERED: NON-FORMULARY MEDICATION (Garlic 1,000 mg capsule) PO SCH (21:00)
[2022-02-18] MEDS: ceFAZolin 1000MG 1,000 MG/7.5 ML SYR IV SCH (02:54)
[2022-02-18] MEDS: KETOROLAC TROMETHAMINE 15 MG/ML VIAL IV SCH ×4 (05:38→22:07)
[2022-02-18] MEDS: ACETAMINOPHEN 500 MG TAB PO SCH ×3 (05:38→22:07)
[2022-02-18 06:00] LABS: Basophils # (auto) 0.03 K/uL (0-0.2); Basophils % (auto) 0.3 %; Eosinophils # (auto) 0.14 K/uL (0-0.50); Eosinophils % (auto) 1.2 %; Hematocrit (blood only) 28.9 % (34.1-44.9); Hemoglobin 9.4 g/dl (12.0-16.0); Immature Granulocytes # (auto) 0.03 K/uL (0.00-0.02); Immature Granulocytes % (auto) 0.3 %; Lymphocytes # (auto) 2.38 K/uL (1.2-3.4); Lymphocytes % (auto) 21.1 %; Mean Corpuscular Hemoglobin 29.2 pg (25.0-34.0); Mean Corpuscular Hgb Conc 32.5 g/dL (32.0-36.0); Mean Corpuscular Volume 89.8 fL (80.0-100.0); Monocytes # (auto) 0.92 K/uL (0.24-0.82); Monocytes % (auto) 8.1 %; Platelet Count 317 K/uL (130-400); RDW Coefficient of Variation 12.4 % (11.5-14.5); RDW Standard Deviation 40.4 fL (36.4-46.3); Red Blood Count 3.22 M/uL (3.93-5.22)
[2022-02-18 06:31] LABS: BUN Creatinine Ratio 26.3 (10-20); Calcium 8.4 mg/dl (8.5-10.1); Creatinine Clr Calc Pharmacy 33.6 ml/min; Est GFR (African American) 62.9 ml/min; Est GFR (Non-African American) 54.2 ml/min; Potassium 4.5 mmol/L (3.5-5.1)
[2022-02-18] MEDS ORDERED: dexAMETHasone 10 MG in SYRINGE 0 ML IV SCH (08:00)
[2022-02-18] MEDS: ASCORBIC ACID 500 MG TAB PO SCH ×2 (08:15→16:29)
[2022-02-18] MEDS: DOCUSATE SODIUM 100 MG CAP PO SCH ×2 (08:15→20:39)
[2022-02-18] MEDS: ASPIRIN 81 MG ECTAB PO SCH ×2 (08:15→20:39)
[2022-02-18] MEDS: CEROVITE ADV FORMULA TAB PO SCH (08:16)
[2022-02-18] MEDS: PSYLLIUM or GUAR GUM FIBER POWDER PACKET PO SCH ×2 (08:16→20:40)
--- NOTE | 2022-02-18 08:56 | Progress Notes ---
DATE OF SERVICE: 02/18/2022. SUBJECTIVE: An 87-year-old female postoperative day 1 from a left hybrid total hip arthroplasty. Sh clemencia is doing quite well. Denies any pain this morning. No hip pain. No chest pain or shortness of br eath. Not feeling dizzy or lightheaded. She really has not been out of bed yet. OBJECTIVE: VITAL SIGNS: Temperature 36.7. Vital signs are stable. GENERAL: Shows a pleasant, elderly, frail female, sitting up in bed, looks comfortable. EXTREMITIES: Examination of the left hip reveals the dressing to be clean, dry and intact. Leg nj ths were equal. Hip is located. She is neurologically intact. LABORATORY DATA: Hemoglobin is 9.4. Hematocrit 28.9. Electrolytes are stable. Sodium is improved. ASSESSMENT: An 87-year-old frail female with a history of hyponatremia. Postoperative day 1 from a left hybrid total hip arthroplasty. She is doing well. Medically, she appears stable. Sodium is st able. Hip is located. She is neurologically intact. PLAN: 1. DVT prophylaxis includes thigh-high TEDs, SCDs, and aspirin twice a day. 2. PT, OT, weightbear as tolerated. Left total hip protocol. 3. Pain control, doing well with current pain regimen. 4. Medical management per the medicine service. 5. Disposition: We are hoping to discharge her to avoid a rehab or correction facility. She w ill need some assistance for a while. [employer] is working on this starting today. Job ID: [id number]
[2022-02-18] MEDS ORDERED: NON-FORMULARY MEDICATION (Fish,Bora,Flax Oils-Om3,6,9no1 [Omega 3-6-9] 1,200 mg Capsule) PO SCH (09:00)
[2022-02-18] MEDS ORDERED: MULTIVITAMIN TAB PO SCH (09:00)
[2022-02-18] MEDS: FUROSEMIDE 20 MG TAB PO SCH (10:05)
[2022-02-18] MEDS ORDERED: NON-FORMULARY MEDICATION (Biotin 5 mg Tablet) PO SCH (10:30)
--- NOTE | 2022-02-18 19:56 | Hospitalist Progress Note ---
Date of Service February 18, 2022 Assessment & Plan (1) Hyponatremia: Plan: Silvia is a 87-year-old female with a history of labile blood pressure, hyponatremia, hyperlipidemia who underwent total hip arthroplasty on 02/17/2022 for DJD of the left hip. We have been consulted for postoperative medical management. S/p total hip arthroplasty 02/17/2022 of left hip Pain control, ambulation, DVT prophylaxis per primary team Pain adequately controlled at bedside, neurovascularly intact on exam Hyponatremia Longstanding creatinine between high 120s and low 130s Has followed with nephrology as outpatient in the past, unclear etiology. 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 Continue current meds Acute blood loss anemiaexpected for the procedure. Appears to be asymptomatic. Follow. DVT proph - per ortho (asa bid) Admission and Anticipated Discharge Date Admission Date: February 17, 2022 Subjective No significant complaints Review of Systems Review of Systems: All systems reviewed & are unremarkable except as noted in HPI & below Physical Exam Physical Exam: Awake and alert pleasant no distress. Breathing unlabored no accessory muscle use good effort. Skin shows no rashes no pallor or icterus. No focal neurodeficits. Results & Data Results & Data ([facility]) Vital Signs (Past 12 Hours) Vital Signs Temp Pulse Resp BP Pulse Ox Pulse Ox O2 Del Method 02/18/22 15:22 98.1 F 69 16 122/63 100 Room Air 02/18/22 12:33 99 O2 Flow Rate 02/18/22 15:22 02/18/22 12:33 0 PG Care Time/CCT Total # of Minutes Spent Total Time Spent with Patient: Total time spent is greater than 50% in coordination of care (as documented) at patient's floor/unit and/or counseling patient: Coding Level of Care Code 21659 Subseq Obs Care Lvl 1 Diagnoses Hyponatremia E87.1
[2022-02-18] MEDS: MAGNESIUM OXIDE 400 MG TAB PO SCH (20:39)
[2022-02-18] MEDS: SENNA 8.6 MG TAB PO SCH (20:40)
[2022-02-19] MEDS: KETOROLAC TROMETHAMINE 15 MG/ML VIAL IV SCH ×2 (05:16→10:25)
[2022-02-19] MEDS: ACETAMINOPHEN 500 MG TAB PO SCH ×3 (05:16→22:06)
[2022-02-19 05:58] LABS: Basophils # (auto) 0.03 K/uL (0-0.2); Basophils % (auto) 0.2 %; Eosinophils # (auto) 0.19 K/uL (0-0.50); Eosinophils % (auto) 1.4 %; Hematocrit (blood only) 31.9 % (34.1-44.9); Hemoglobin 10.3 g/dl (12.0-16.0); Immature Granulocytes # (auto) 0.07 K/uL (0.00-0.02); Immature Granulocytes % (auto) 0.5 %; Lymphocytes # (auto) 2.58 K/uL (1.2-3.4); Lymphocytes % (auto) 18.5 %; Mean Corpuscular Hemoglobin 29.1 pg (25.0-34.0); Mean Corpuscular Hgb Conc 32.3 g/dL (32.0-36.0); Mean Corpuscular Volume 90.1 fL (80.0-100.0); Monocytes # (auto) 0.94 K/uL (0.24-0.82); Monocytes % (auto) 6.7 %; Neutrophils # (auto) 10.16 K/uL (1.4-6.5); Neutrophils % (auto) 72.7 %; Platelet Count 336 K/uL (130-400); RDW Coefficient of Variation 12.3 % (11.5-14.5); RDW Standard Deviation 40.7 fL (36.4-46.3); Red Blood Count 3.54 M/uL (3.93-5.22); White Blood Count 13.97 K/ul (4.8-10.8)
[2022-02-19 06:24] LABS: BUN Creatinine Ratio 46.7 (10-20); Calcium 8.8 mg/dl (8.5-10.1); Creatinine Clr Calc Pharmacy 53.2 ml/min; Est GFR (African American) 95.7 ml/min; Est GFR (Non-African American) 82.5 ml/min; Potassium 4.5 mmol/L (3.5-5.1)
[2022-02-19] MEDS: ASCORBIC ACID 500 MG TAB PO SCH ×2 (07:33→16:31)
[2022-02-19] MEDS: ASPIRIN 81 MG ECTAB PO SCH ×2 (07:33→20:38)
[2022-02-19] MEDS: PSYLLIUM or GUAR GUM FIBER POWDER PACKET PO SCH ×2 (07:34→20:39)
[2022-02-19] MEDS: DOCUSATE SODIUM 100 MG CAP PO SCH ×2 (07:34→20:38)
[2022-02-19] MEDS: TELMISARTAN 40 MG TAB PO SCH ×2 (07:34→20:40)
[2022-02-19] MEDS: CEROVITE ADV FORMULA TAB PO SCH (07:34)
[2022-02-19] MEDS: ARTIFICIAL TEARS OP PRN (10:23)
--- NOTE | 2022-02-19 11:04 | Progress Notes ---
DATE OF SERVICE: 02/19/2022. SUBJECTIVE: An 87-year-old white female, postop day 2, from a left hybrid total hip arthroplasty. S he is doing well. Not having much pain. Just waiting for placement. OBJECTIVE: VITAL SIGNS: Temperature 36.4. Vital signs are stable. GENERAL: Shows a pleasant, elderly female. She is sitting up in her bedside chair, looks completely comfortable. EXTREMITIES: Examination of the left hip reveals the dressing to be clean, dry and intact. Leg nj ths were equal. Hip is located. She is neurologically intact. LABORATORY DATA: Hemoglobin is 10.3. Hematocrit 31.9. White cell count 13.97. Electrolytes are st able. Sodium is 129. ASSESSMENT: An 87-year-old white female with chronic hyponatremia postop day 2 from a left hybrid to osiris hip replacement, doing well. Pain is controlled. Hip is located. Sodium is stable. PLAN: 1. DVT prophylaxis includes thigh-high TEDs, SCDs, and aspirin twice a day. 2. PT, OT, weightbear as tolerated. Left total hip protocol. 3. Pain control, doing okay with current pain regimen. 4. Hyponatremia. She is followed by medicine. She is on fluid restrictions. Her sodium is stable. 5. Disposition: She is orthopedically okay for discharge. Just waiting for placement. Job ID: [id number]
--- NOTE | 2022-02-19 19:17 | Hospitalist Progress Note ---
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 We have been consulted for postoperative medical management. S/p total hip arthroplasty 02/17/2022 of left hip Pain control, ambulation, DVT prophylaxis per primary team Pain adequately controlled at bedside, just waiting placement Hyponatremia Longstanding creatinine between high 120s and low 130s Has followed with nephrology as outpatient in the past, unclear etiology. 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 Continue current meds, safe for outpt f/u Acute blood loss anemiaexpected for the procedure. Appears to be asymptomatic. stable DVT proph - per ortho (asa bid) medically stable - hospitalist team will sign off but please don't hesitate to contact if we can be of further assistance Admission and Anticipated Discharge Date Admission Date: February 17, 2022 Subjective feeling fine, no complaints Results & Data Results & Data ([facility]) Vital Signs (Past 12 Hours) Vital Signs Temp Pulse Resp BP BP Pulse Ox O2 Del Method 02/19/22 15:24 97.9 F 71 18 123/67 99 Room Air 02/19/22 07:20 97.5 F L 68 16 122/63 99 Room Air PG Care Time/CCT Total # of Minutes Spent Total Time Spent with Patient: Total time spent is greater than 50% in coordination of care (as documented) at patient's floor/unit and/or counseling patient: Coding Level of Care Code 08548 Subseq Hosp Care Lvl 1 Diagnoses Hyponatremia E87.1
--- NOTE | 2022-02-19 19:17 | Hospitalist Progress Note ---
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 We have been consulted for postoperative medical management. S/p total hip arthroplasty 02/17/2022 of left hip Pain control, ambulation, DVT prophylaxis per primary team Pain adequately controlled at bedside, just waiting placement Hyponatremia Longstanding creatinine between high 120s and low 130s Has followed with nephrology as outpatient in the past, unclear etiology. 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 Continue current meds, safe for outpt f/u Acute blood loss anemiaexpected for the procedure. Appears to be asymptomatic. stable DVT proph - per ortho (asa bid) medically stable - hospitalist team will sign off but please don't hesitate to contact if we can be of further assistance Admission and Anticipated Discharge Date Admission Date: February 17, 2022 Subjective feeling fine, no complaints Review of Systems Review of Systems: All systems reviewed & are unremarkable except as noted in HPI & below Physical Exam Physical Exam: gen aao pleasant nad heent nc at mmm breathing unlabored no accessory muscles good effort skin no rashes no pallor or icterus Results & Data Results & Data ([facility]) Vital Signs (Past 12 Hours) Vital Signs Temp Pulse Resp BP BP Pulse Ox O2 Del Method 02/19/22 15:24 97.9 F 71 18 123/67 99 Room Air 02/19/22 07:20 97.5 F L 68 16 122/63 99 Room Air PG Care Time/CCT Total # of Minutes Spent Total Time Spent with Patient: Total time spent is greater than 50% in coordination of care (as documented) at patient's floor/unit and/or counseling patient: Coding Level of Care Code 92291 Subseq Hosp Care Lvl 1 Diagnoses Hyponatremia E87.1
--- NOTE | 2022-02-19 19:18 | Billing Data ---
Date of Service February 19, 2022 Coding Level of Care Code 31630 Subseq Obs Care Lvl 1 Comment disregard [id number] - entered in error
[2022-02-19] MEDS: SENNA 8.6 MG TAB PO SCH (20:39)
[2022-02-19] MEDS: MAGNESIUM OXIDE 400 MG TAB PO SCH (20:39)
[2022-02-20] MEDS: ACETAMINOPHEN 500 MG TAB PO SCH ×3 (06:06→21:30)
[2022-02-20] MEDS: TELMISARTAN 40 MG TAB PO SCH ×2 (07:30→20:19)
[2022-02-20] MEDS: ASPIRIN 81 MG ECTAB PO SCH ×2 (07:30→20:19)
[2022-02-20] MEDS: FUROSEMIDE 20 MG TAB PO SCH (07:30)
[2022-02-20] MEDS: DOCUSATE SODIUM 100 MG CAP PO SCH ×2 (07:31→20:19)
[2022-02-20] MEDS: CEROVITE ADV FORMULA TAB PO SCH (07:31)
[2022-02-20] MEDS: ASCORBIC ACID 500 MG TAB PO SCH ×2 (07:31→16:02)
[2022-02-20] MEDS: PSYLLIUM or GUAR GUM FIBER POWDER PACKET PO SCH ×2 (07:32→20:18)
[2022-02-20] MEDS: ARTIFICIAL TEARS OP PRN (10:44)
[2022-02-20] MEDS: SENNA 8.6 MG TAB PO SCH (20:18)
[2022-02-20] MEDS: MAGNESIUM OXIDE 400 MG TAB PO SCH (20:19)
[2022-02-21] MEDS: ACETAMINOPHEN 500 MG TAB PO SCH ×3 (05:24→21:47)
[2022-02-21] MEDS: DOCUSATE SODIUM 100 MG CAP PO SCH ×2 (08:16→20:44)
[2022-02-21] MEDS: CEROVITE ADV FORMULA TAB PO SCH (08:17)
[2022-02-21] MEDS: TELMISARTAN 40 MG TAB PO SCH ×2 (08:17→20:43)
[2022-02-21] MEDS: PSYLLIUM or GUAR GUM FIBER POWDER PACKET PO SCH ×2 (08:18→20:44)
[2022-02-21] MEDS: ASPIRIN 81 MG ECTAB PO SCH ×2 (08:18→20:43)
[2022-02-21] MEDS: ASCORBIC ACID 500 MG TAB PO SCH ×2 (08:18→17:10)
[2022-02-21] MEDS: ARTIFICIAL TEARS OP PRN (08:19)
--- NOTE | 2022-02-21 11:35 | Progress Notes ---
DATE OF SERVICE: 02/21/2022. SUBJECTIVE: An 87-year-old white female now postop day 4 from left hybrid total hip arthroplasty. S he is doing quite well. Pain has been controlled. She is just been waiting for placement. No chest pain or shortness of breath. Not feeling dizzy or lightheaded. OBJECTIVE: VITAL SIGNS: Temperature 36.4. Vital signs are stable. PHYSICAL EXAMINATION: GENERAL: Shows a pleasant, elderly female. I visited her when she was walking around the room this morning with a walker. EXTREMITIES: Examination of the left hip reveals the dressing to be clean, dry and intact. Fairly m ild swelling. Minimal drainage. Leg lengths were equal. She is neurologically intact. LABORATORY DATA: No new labs. ASSESSMENT: An 87-year-old white female now postop day 4 from left hybrid total hip arthroplasty, do ing quite well. She is just been waiting for placement. PLAN: 1. DVT prophylaxis including thigh-high TEDs, SCDs, and aspirin twice a day. 2. PT, OT, weightbear as tolerated. Left total hip protocol. She does need to obey hip precautions . 3. Pain control, doing okay with current pain regimen. 4. Medical management as per the medicine service. Sodium has been pretty stable. 5. Disposition: We are just waiting for placement. Job ID: [id number]
[2022-02-21] MEDS: MAGNESIUM OXIDE 400 MG TAB PO SCH (20:43)
[2022-02-21] MEDS: SENNA 8.6 MG TAB PO SCH (20:44)
[2022-02-22] MEDS: ACETAMINOPHEN 500 MG TAB PO SCH ×3 (06:00→21:24)
[2022-02-22] MEDS: DOCUSATE SODIUM 100 MG CAP PO SCH ×2 (08:11→21:23)
[2022-02-22] MEDS: TELMISARTAN 40 MG TAB PO SCH ×2 (08:11→21:23)
[2022-02-22] MEDS: ASCORBIC ACID 500 MG TAB PO SCH ×2 (08:12→18:43)
[2022-02-22] MEDS: FUROSEMIDE 20 MG TAB PO SCH (08:12)
[2022-02-22] MEDS: ASPIRIN 81 MG ECTAB PO SCH ×2 (08:12→21:23)
[2022-02-22] MEDS: CEROVITE ADV FORMULA TAB PO SCH (08:13)
[2022-02-22] MEDS: PSYLLIUM or GUAR GUM FIBER POWDER PACKET PO SCH ×2 (08:13→21:23)
--- NOTE | 2022-02-22 11:16 | Progress Notes ---
DATE OF SERVICE: 02/22/2022 SUBJECTIVE: An 87-year-old white female postop day 5 from a left hybrid total hip arthroplasty. She is doing pretty well. Pain is controlled. She is walking pretty well, but still struggling to get in and out of bed and doing a lot of things on her own. She has been denied rehab for unclear reason s. PHYSICAL EXAMINATION: GENERAL: Shows a pleasant, elderly female. She is sitting up in her bedside chair, looks comfortabl e. EXTREMITIES: Examination of the left hip reveals the dressing to be clean, dry and intact. Leg nj ths are equal. Thigh is soft and supple. She is neurologically intact. LABORATORY DATA: No new labs. ASSESSMENT: An 87-year-old white female, 5 days out from a left hybrid total hip arthroplasty, doing well. She is getting around pretty well, but still struggling to get in and out of bed and doing a lot of things on her own. She is denied rehabilitation or nursing home facility for unclear reaso ns. I do not think it is ideal for her to go home by herself. PLAN: 1. DVT prophylaxis includes thigh-high TEDs, SCDs, and aspirin twice a day. 2. PT, OT, weightbear as tolerated. Left total hip protocol. 3. Pain control, doing okay with current pain regimen. 4. Disposition: We are just waiting for placement. She has been denied rehab and nursing home f or unclear reasons. We will continue working on this. Job ID: [id number]
[2022-02-22] MEDS: MAGNESIUM OXIDE 400 MG TAB PO SCH (21:23)
[2022-02-22] MEDS: SENNA 8.6 MG TAB PO SCH (21:23)
[2022-02-23] MEDS: ACETAMINOPHEN 500 MG TAB PO SCH ×3 (06:40→22:22)
--- NOTE | 2022-02-23 07:42 | Progress Notes ---
DATE OF SERVICE: 02/23/2022. SUBJECTIVE: An 87-year-old white female now postop day #6 from hybrid total hip replacement done on the left side. She is doing quite well. Still struggling getting in and out of bed and doing the ju st functional daily activities. She walks pretty well. Pain is controlled. Waiting for placement. OBJECTIVE: VITAL SIGNS: Temperature 36.7. Vital signs are stable. PHYSICAL EXAMINATION: GENERAL: Shows a pleasant, frail, elderly female. She is sitting up in her bedside chair, looks com fortable. EXTREMITIES: Examination of the left hip reveals the dressing to be clean, dry and intact. Mild swe lling. No drainage. She is neurologically intact. ASSESSMENT: An 87-year-old white female, postop day #6 from a left hybrid total hip replacement, doi ng well. Still requiring assistance with activities of daily living. She has been denied rehab for unclear reasons. PLAN: 1. DVT prophylaxis includes thigh-high TEDs, SCDs, and aspirin twice a day. 2. PT, OT, weightbear as tolerated. Left total hip protocol. 3. Pain control, doing well with current pain regimen. 4. Disposition. We are just waiting for placement. She does not feel safe going home. We are stru ggling with insurance issues. Job ID: [id number]
[2022-02-23] MEDS: TELMISARTAN 40 MG TAB PO SCH ×2 (10:15→19:35)
[2022-02-23] MEDS: ASPIRIN 81 MG ECTAB PO SCH ×2 (10:16→19:36)
[2022-02-23] MEDS: DOCUSATE SODIUM 100 MG CAP PO SCH ×2 (10:16→19:37)
[2022-02-23] MEDS: CEROVITE ADV FORMULA TAB PO SCH (10:16)
[2022-02-23] MEDS: FENOFIBRATE NANOCRYSTALLIZED 145 MG TABLET PO SCH (10:16)
[2022-02-23] MEDS: PSYLLIUM or GUAR GUM FIBER POWDER PACKET PO SCH ×2 (10:17→19:37)
[2022-02-23] MEDS: ASCORBIC ACID 500 MG TAB PO SCH ×2 (11:43→18:10)
[2022-02-23] MEDS: MAGNESIUM OXIDE 400 MG TAB PO SCH (19:36)
[2022-02-23] MEDS: SENNA 8.6 MG TAB PO SCH (19:37)
[2022-02-24] MEDS: ACETAMINOPHEN 500 MG TAB PO SCH ×3 (05:36→21:06)
[2022-02-24] MEDS: FENOFIBRATE NANOCRYSTALLIZED 145 MG TABLET PO SCH (08:40)
[2022-02-24] MEDS: TELMISARTAN 40 MG TAB PO SCH ×2 (08:40→21:07)
[2022-02-24] MEDS: CEROVITE ADV FORMULA TAB PO SCH (08:40)
[2022-02-24] MEDS: PSYLLIUM or GUAR GUM FIBER POWDER PACKET PO SCH ×3 (08:40→21:09)
[2022-02-24] MEDS: DOCUSATE SODIUM 100 MG CAP PO SCH ×2 (08:41→21:07)
[2022-02-24] MEDS: ASCORBIC ACID 500 MG TAB PO SCH ×2 (08:41→17:43)
[2022-02-24] MEDS: ASPIRIN 81 MG ECTAB PO SCH ×2 (08:41→21:07)
--- NOTE | 2022-02-24 08:43 | Progress Notes ---
DATE OF SERVICE: 02/24/2022. SUBJECTIVE: An 87-year-old white female now 1 week out from a left hybrid total hip arthroplasty. J ust waiting for placement. Pain has been controlled. Really did not have a good night's sleep last night for unclear reasons. Pain is controlled. OBJECTIVE: VITAL SIGNS: Temperature 36.5. Vital signs are stable. GENERAL: Frail, elderly female. Lying in bed, looks pretty comfortable. EXTREMITIES: Examination of the left hip incision reveals the dressing to be clean, dry and intact. Leg lengths are equal. She is neurologically intact. Hip is located. ASSESSMENT: An 87-year-old white female now 1 week out from a left hybrid total hip replacement, doi ng well. Just waiting for placement. She gets around pretty good, but still requiring assistance ge tting in and out of bed and other ADLs. PLAN: 1. DVT prophylaxis includes thigh-high TEDs, SCDs, and aspirin twice a day. 2. PT, OT, weightbear as tolerated. Left total hip protocol. 3. Pain control, doing well with current pain regimen. 4. Disposition. Just waiting for placement. I do not think it is quite safe for her to go home as she needs assistance with some ADLs. Job ID: [id number]
[2022-02-24] MEDS: MAGNESIUM OXIDE 400 MG TAB PO SCH (21:07)
[2022-02-24] MEDS: SENNA 8.6 MG TAB PO SCH (21:07)
[2022-02-25] MEDS: ACETAMINOPHEN 500 MG TAB PO SCH (05:11)
[2022-02-25] MEDS: PSYLLIUM or GUAR GUM FIBER POWDER PACKET PO SCH (07:49)
[2022-02-25] MEDS: DOCUSATE SODIUM 100 MG CAP PO SCH (07:49)
[2022-02-25] MEDS: ASCORBIC ACID 500 MG TAB PO SCH (08:26)
[2022-02-25] MEDS: ASPIRIN 81 MG ECTAB PO SCH (08:26)
[2022-02-25] MEDS: FUROSEMIDE 20 MG TAB PO SCH (08:26)
[2022-02-25] MEDS: TELMISARTAN 40 MG TAB PO SCH (08:26)
[2022-02-25] MEDS: CEROVITE ADV FORMULA TAB PO SCH (08:26)
[2022-02-25] MEDS: FENOFIBRATE NANOCRYSTALLIZED 145 MG TABLET PO SCH (08:26)
--- NOTE | 2022-02-25 08:39 | Progress Notes ---
DATE OF SERVICE: 02/25/2022. SUBJECTIVE: An 87-year-old white female now postoperative day 1 from a left hybrid total hip arthrop lasty. We have just been waiting for placement. She is doing well otherwise. Just not able to go h ome. Pain is controlled. No chest pain or shortness of breath. Not feeling dizzy or lightheaded. OBJECTIVE: VITAL SIGNS: Temperature 36.4. Vital signs are stable. GENERAL: Shows a pleasant, frail, elderly female. Sitting up in her bedside chair, looks comfortabl e. EXTREMITIES: Examination of the left hip reveals incision to be healed nicely. No drainage. Mild s welling. Leg lengths were equal. She is neurologically intact. ASSESSMENT: An 87-year-old white female, now 8 days out from a left hybrid total hip arthroplasty, d oing well. She is just waiting for placement. She has been approved for [facility]. She apparently ap pealed the denial and has won. PLAN: To discharge today. Job ID: [id number]
--- NOTE | 2022-03-05 14:37 | Discharge Summary ---
Date of Service March 05, 2022 Discharge Data Consultations 02/17/22 15:37 Consult Internal Medicine Routine Procedures Performed Operation Date: 02/17/22 10:40 Actual Procedures p Left Total Hip Arthroplasty(Left) - James Duran MD Hospital Course (1) Status post left hip replacement: This is a 87 year old patient admitted on 02/17/22 and underwent total hip arthroplasty. She tolerated the procedure well and there were no complications. Transferred to the PACU post op and later to the orthopedic floor for further care. She was given ancef for antibiotic prophylaxis. She was also given KARLA stockings, SCDs, and aspirin for DVT prophylaxis. Hemoglobin, hematocrit, and vital signs were monitored during her hospital stay and remained stable. Did not require any blood transfusions. There were no complications during her hospital stay. She was followed by the hospitalist service during her hospital stay. She did have some hyponatremia, which was managed with fluid restrictions. She was initially denied rehab or nursing home facility by her insurance but did appeal this. On post op day #8 her pain was reasonably controlled with oral pain medicine and she was participating in physical therapy. On post op day #8 the patient was discharged to a nursing home facility. She was given printed discharge instru ctions including prescriptions for extra strength tylenol, aspirin, and tramadol. Continue physical therapy, weight bearing as tolerated. Continue hip precautions. Continue KARLA stockings. Follow up approximately 2 weeks post op or sooner if there are problems or concerns. Coding Level of Care Code None Diagnoses Status post left hip replacement Z96.642
== END 2022-02-25 09:49 | DRG 470 ==
LOC: ASU 07:58 → 3E 07:58

== ENCOUNTER 2023-02-02 07:47 | Inpatient (IN) ==
--- NOTE | 2023-01-09 11:27 | PAT Medication Instructions ---
Medication Instructions Date of Service January 09, 2023 Home Medications Medication Instructions Recorded Biju Mcdowell #1 ea 02/08/22 amoxicillin 500 mg tablet 2,000 mg PO ONCE #4 tabs 07/18/22 biotin 5 mg tablet 5 mg PO QAM fish, borage, flaxseed oils-omega 3,6,9 comb no.1 1,200 mg capsule (Newberry 3-6-9) 1 cap PO QAM magnesium 250 mg tablet 250 mg PO QAM vjazhiid-tsl-nlqed acid 0.4 mg-lycopene 300 mcg-lutein 250 mcg tablet (Centrum Silver) 1 tab PO QAM acetaminophen 650 mg tablet,extended release 650 mg PO Q12H PRN Pain peg 400-propylene glycol 0.4 %-0.3 % eye drops (Systane Ultra) 1 drp ophthalmic (eye) BID garlic 1,000 mg capsule 1,000 mg PO QAM aspirin 81 mg tablet,delayed release (Adult Low Dose Aspirin) 81 mg PO QAM amoxicillin 500 mg tablet 2,000 mg PO ONCE fenofibrate micronized 134 mg capsule 134 mg PO QAM furosemide 20 mg tablet (Lasix) 10 mg PO UD telmisartan 40 mg tablet (Micardis) 20 - 40 mg PO UD Continue as directed amoxicillin 500 mg tablet 2,000 mg PO ONCE (if needed) STOP taking 2 weeks before surgery biotin 5 mg tablet 5 mg PO QAM fish, borage, flaxseed oils-omega 3,6,9 comb no.1 1,200 mg capsule (Newberry 3-6-9) 1 cap PO QAM garlic 1,000 mg capsule 1,000 mg PO QAM STOP taking 48 hours before surgery fenofibrate micronized 134 mg capsule 134 mg PO QAM DO NOT take the morning of surgery magnesium 250 mg tablet 250 mg PO QAM lpymtjag-mtc-mvegm acid 0.4 mg-lycopene 300 mcg-lutein 250 mcg tablet (Centrum Silver) 1 tab PO QAM furosemide 20 mg tablet (Lasix) 10 mg PO UD telmisartan 40 mg tablet (Micardis) 20 - 40 mg PO UD Take morning of surgery With a small sip of water, OTHERWISE NOTHING TO EAT OR DRINK AFTER MIDNIGHT: aspirin 81 mg tablet,delayed release (Adult Low Dose Aspirin) 81 mg PO QAM (unless surgeon directed otherwise) acetaminophen 650 mg tablet,extended release 650 mg PO Q12H PRN Pain (if needed) peg 400-propylene glycol 0.4 %-0.3 % eye drops (Systane Ultra) 1 drp ophthalmic (eye) BID Take evening before surgery telmisartan 40 mg tablet (Micardis) 20 - 40 mg PO UD acetaminophen 650 mg tablet,extended release 650 mg PO Q12H PRN Pain (if needed) peg 400-propylene glycol 0.4 %-0.3 % eye drops (Systane Ultra) 1 drp ophthalmic (eye) BID Other Notes If you have any questions please call us at [phone] or [phone] or [phone] or [phone]
--- NOTE | 2023-01-18 13:23 | Anesthesiology Consultation ---
Date of Service January 18, 2023 Assessment & Plan (1) Encounter for pre-operative examination: - COVID screening: Per assessment on 01/18: No known COVID-19 positive contacts or current COVID-19 related symptoms. Travel screen negative. Patient vaccinated. At surgeon discretion if preop Covid testing being done. - Outpatient joint assessment: Pt currently scheduled for inpatient pathway. If surgeon requests review for outpatient joint pathway, patient is not recommended candidate for outpatient joint program from anesthesia standpoint. - Anesthesia request/concern: Reviewed GA vs neuraxial anesthesia. Patient declines neuraxial anesthesia (indicates that this was the decision she made prior to 02/2022 Left DESI- which was done under GA at [facility]). Ultimate anesthesia decision DOS between patient/surgeon/anesthesiologist. Chart Review Chart Review: Acceptable Risk for Surgery and Patient seen in Pre Admission Testing Teaching & Discussion Pre-Anesthesia Teaching/Discussion Notes: Instructed NPO after midnight before surgery,except medications with 15 cc of water. Medication instructions provided according to the PAT guidelines. History Surgery Operation Date: 02/02/23 08:40 Proposed Procedures p Right Total Hip Arthroplasty - James Duran MD Height/Weight Height: 5 ft 2 in Weight: 56.1 kg Allergies Allergy/AdvReac Type Severity Reaction Status Date / Time No Known Allergies Allergy Verified 01/19/23 13:20 Medications Home Medications Medication Instructions Recorded Confirmed Last Taken biotin 5 mg tablet 5 mg PO QAM 12/09/18 01/19/23 02/15/22 12:00 fish, borage, flaxseed oils-omega 1 cap PO QAM 12/09/18 01/19/23 02/10/22 3,6,9 comb no.1 1,200 mg capsule (Marbury 3-6-9) magnesium 250 mg tablet 250 mg PO QAM 12/09/18 01/19/23 02/16/22 18:00 iwbcggip-ctx-ftvqz acid 0.4 1 tab PO QAM 12/09/18 01/19/23 02/16/22 08:00 mg-lycopene 300 mcg-lutein 250 mcg tablet (Centrum Silver) Wheeled Walker #1 ea 02/08/22 01/19/23 Unknown acetaminophen 650 mg 650 mg PO Q12H PRN Pain 02/08/22 01/19/23 02/16/22 08:00 tablet,extended release peg 400-propylene glycol 0.4 %-0.3 1 drp ophthalmic (eye) BID 02/08/22 01/19/23 02/17/22 06:30 % eye drops (Systane Ultra) garlic 1,000 mg capsule 1,000 mg PO QAM 04/28/22 01/19/23 Unknown aspirin 81 mg tablet,delayed 81 mg PO QAM 05/19/22 01/19/23 Unknown release (Adult Low Dose Aspirin) amoxicillin 500 mg tablet 2,000 mg PO ONCE #4 tabs 07/18/22 01/19/23 Unknown fenofibrate micronized 134 mg 134 mg PO QAM 01/08/23 01/19/23 Unknown capsule furosemide 20 mg tablet (Lasix) 10 mg PO UD 01/08/23 01/19/23 Unknown telmisartan 40 mg tablet (Micardis) 20 - 40 mg PO UD 01/08/23 01/19/23 Unknown Past Medical History Medical History Arthritis Arthritis of right hip History of shingles 05/2022- "Had twice, after healing from the first time, got it again 3 weeks later" Hypercholesteremia Hypertension Hyponatremia Chronic with fluctuating levels in the high 120s to low 130s Unclear etiology per remote nephrology notes Exercise / Class Metabolic Activity III < 4 Walking/Shop/Light housework (uses cane) Past Family History Family History Brother Stomach cancer Alcohol abuse Diabetes Mother Stomach cancer Colonic polyp Colorectal cancer Father Myocardial infarction Aunt Breast cancer Denies family history of Ovarian cancer Prostate cancer Past Surgical History Surgical History Status post left hip replacement Left DESI (02/17/22): Grade 2 view, ETT 7.0 at [facility] Past Anesthesia History No Hx of Anesthesia Complications and No Family Hx of Anesthesia Complications History of PONV No Hx of PONV and No Hx of Motion Sickness Social History Smoking Status: Never smoker Do You Dip or Chew Tobacco: No Hx Alcohol Use: No Hx Substance Use: No substance use type: does not use Review of Systems Patient denies chest pain, shortness of breath, dyspnea on exertion, fever, chills, cough, wheezing, palpitations. Physical Exam Vital Signs VITALS BP 133/74 P 81 TEMP 98.4 SP02 98%RA RESP 16 PHYSICAL Full cervical extension range of motion. Full TMJ range of motion. TMD 3 finger breaths Mallampati Score 1 Dentition: + upper denture Lungs: clear throughout to auscultation Cardiac: regular rate and rhythm, no murmurs noted Spine: normal Carotid arteries: negative bruit Extremities: no LE edema Lab Results Anesthesia Preop Results Results Anesthesia Widget: WBC 8.87 K/ul (4.8-10.8) 01/18/23 Hgb 12.1 g/dl (12.0-16.0) 01/18/23 Hct 37.3 % (37.0-47.0) 01/18/23 Plt 320 K/uL (130-400) 01/18/23 Na 132 mmol/L (136-145) L 01/18/23 K 4.5 mmol/L (3.5-5.1) 01/18/23 Cl 100 mmol/L (98-107) 01/18/23 CO2 27 mmol/L (21-32) 01/18/23 BUN 26 mg/dl (6-23) H 01/18/23 Creat 0.60 mg/dl (0.6-1.2) 01/18/23 Glucose Level 102 mg/dl (70-99(Fasting)) H 01/18/23 PT 11.0 Seconds (9.0-12.0) 01/18/23 PTT 28.2 Seconds (21.0-31.0) 01/18/23 INR 1.0 (0.9-1.1) 01/18/23 Blood Type O Positive 01/18/23 Antibody Screen NEGATIVE 01/18/23 Testing Electrocardiogram Date: 01/18/23 SR with first degree AVB at 76bpm. LAD. NS IVCD. Cannot r/o anterior infarct (cited on or before 02/10/22). Compared to 02/10/22, PSVCs are no longer present per [employer] products sales engineer comparison. Chest X-Ray Date: 05/26/22 FINDINGS: An AP, portable, upright chest radiograph is compared to study dated 02/10/2022. The heart is mildly enlarged. Atherosclerotic calcification of the thoracic aorta. The pulmonary vasculature is noncongested. Chronic interstitial thickening is similar to previous. There is mild elevation of the right hemidiaphragm and bibasilar atelectasis. The lungs and pleural spaces are otherwise clear. No pneumothorax is seen. The skeletal structures are osteopenic. The bony thorax is grossly intact. Arthritic change is seen in the shoulders with calcified joint bodies on the left. IMPRESSION: Mild cardiomegaly with no acute cardiopulmonary abnormality. COVID-19 Risk Screen Screening Information COVID-19 Screen Date: 01/18/23 Exposure 21 Days Family/Household +COVID Last 21 Days: No Exposure 10 Days Any COVID Exposure Last 10 Days: No Symptoms Last 10 Days Experienced COVID Sx Last 10 Days: No + COVID 0-90 Days COVID + in Last 0-90 Days: No
[~2023-02-02 07:47] MED LIST changes: +BUPIVACAINE LIPOSOME/PF 266 MG, BUPIVACAINE/EPINEPHRINE 50 ML, SODIUM CHLORIDE 0.9% PF ... INFIL SCH; +LR 15ML/HR IV SCH; -LR 500ML BOLUS, THEN 15ML/HR IV SCH; +dexAMETHasone**PF** 10 MG/ML VIAL IV SCH
[2023-02-02] MEDS ORDERED: ePHEDrine sulfate 50 MG/ML AMP IV PRN (09:02)
[2023-02-02] MEDS ORDERED: HYDROmorphone INJ 1 MG/ML SYRINGE IV PRN (09:02)
[2023-02-02] MEDS ORDERED: MEPERIDINE HCL 25 MG/ML CARP/VIAL IV PRN (09:02)
[2023-02-02] MEDS ORDERED: ONDANSETRON INJ 2 MG/ML 2 ML VIAL IV PRN ×2 (09:02→15:20)
[2023-02-02] MEDS ORDERED: ATROPINE SULFATE 0.1 MG/ML 10ML SYR IV PRN (09:02)
--- NOTE | 2023-02-02 10:21 | History & Physical Bridge Note ---
Date of Service February 02, 2023 History & Physical Bridge Note I have examined the patient, reviewed the History & Physical and in the interval since the performance of the History & Physical I have noted the following changes of clinical significance: no changes noted
[2023-02-02] MEDS ORDERED: ONDANSETRON INJ 2 MG/ML 2 ML VIAL ONE (10:44)
[2023-02-02] MEDS ORDERED: fentaNYL citrate PF 100 MCG/2 ML VIAL ONE ×2 (10:44→12:17)
[2023-02-02] MEDS ORDERED: ROCURONIUM BROMIDE 10 MG/ML 5 ML VIAL IV ONE (10:44)
[2023-02-02] MEDS ORDERED: SUGAMMADEX SODIUM 200 MG/2 ML VIAL IV ONE (10:44)
[2023-02-02] MEDS ORDERED: PROPOFOL IV EMULSION 10 MG/ML 20 ML VIAL IV ONE (10:44)
[2023-02-02] MEDS ORDERED: DEXAMETHASONE SOD INJ 4 MG/ML VIAL ONE (10:44)
[2023-02-02] MEDS ORDERED: BUPIVACAINE/EPINEPHRINE 0.5% MPF 1:200,000 10 ML VIAL ONE (11:21)
[2023-02-02] MEDS ORDERED: BUPIVACAINE/EPINEPHRINE 0.25% 1:200,000 30 ML VIAL ONE (11:29)
[2023-02-02] MEDS: fentaNYL citrate PF 100 MCG/2 ML VIAL IV PRN ×4 (13:30→13:55)
--- NOTE | 2023-02-02 13:30 | Operative Report ---
PG Post Operative Report Pre & Post Diagnosis Operation Date: 02/02/23 09:55 Pre-Op Diagnosis: Right Hip Degenerative Joint Disease Post-Op Diagnosis: Right Hip Degenerative Joint Disease I identified the patient and participated in the time-out.: Yes Procedure Operation Date: 02/02/23 09:55 Actual Procedures p Right Total Hip Arthroplasty(Right) - James Duran MD Surgeon James Duran MD Operations Scheduler Amanuel Tatum PA-C Estimated Blood Loss 150 Findings Consistent with Post-Op Diagnosis Operative findings were advanced right hip DJD. She had extensive grade 4 [id number] disease of the femoral head and acetabulum. Moderate-sized synovitis and joint effusion. Small anterior acetabular osteophytes. Specimens Right femoral head sent for pathology Anesthesia Type General Complications none Disposition Accompanied Patient To Recovery: No Indications Patient is a 88-year-old female is had a several year history of increasing hip pain and discomfort. She underwent a left total hip placement less than a year ago and is done well from this. She developed progressive deformity and arthritis in her right hip. X-rays show progressive hip joint arthritis. She elected proceed with total hip arthroplasty. Description of Procedure Operative implants consist of: 1. Biomet G7 size 54 mm acetabular shell. 2. 6.5 cancellous acetabular screws 1 of 35 mm in length and 1 of 25 mm in length. 3. Temple hole eliminator. 4. Highly cross-linked polyethylene liner with a 54 mm outer diameter and 36 mm diameter. 5. DePuy [place] size 3 high offset cemented femoral stem. 5. +5/36 mm metal articular ball. The patient was taken the operating, identified, placed on the operating table supine position but all contractors were appropriately padded. IV antibiotics arrived by anesthesia team. A general anesthetic was implemented. The patient was then placed in the left lateral cubitus position. An axillary roll was placed. A Stulberg hip positioner was used for positioning. The right hip and leg were then prepped and draped in usual sterile fashion. A posterolateral approach to the right hip was then performed through a curvilinear incision centered over the greater trochanter. Sharp dissection scalp through subcutaneous tissue down to the IT band gluteal fascia the IT band gluteal fascia were incised longitudinally in line with skin incision. The underlying greater bursa was excised. The piriformis and external rotators as well as the posterior hip joint capsule were then released from the posterior aspect the hip as a single layer. Great care was taken throughout the procedure protect the sciatic nerve at all times. Hip was internally rotated and dislocated. Femoral neck osteotomy cut was made with Final Cut 1 cm above the lesser trochanter. Femoral head was removed and sent for pathology. The femur was retracted anteriorly. Attention drawn the acetabulum. The acetabular labrum was excised. The pulm nerve fat was excised. Sequential reaming the acetabular was then performed again with size 45 and progressing up to 53. I did ream a little bit with a 54 reamer and then placed a 54 mm G7 acetabular shell in about 40 degrees lateral opening and 20 degrees of anteversion. It was fixed with two 6.5 cancellous acetabular screws. Trial liner was placed. Attention drawn the femur. I did take some anterior osteophytes off the acetabulum. The proximal femur was entered with a Enertiv cutter followed by canal finder and lateralizing reamer. I then broached to a size 1 broach up to a 2. The 3 was a bit too tight to get the whole way down so we went back down to the 2. The calcar reamer was used smoothing off the calcar. We trialed the hip and the +5 articular ball seem to recreate stability and soft tissue tension appropriately. We elect to place these implants. All trial implants were removed. A apex eliminator was placed. Highly cross- linked polyethylene liner was placed. A double batch [place] G cement was mixed. It was injected in the canal. A size 3 high offset [place] femoral stem was then placed with a distal centralizer. Of note comminuted we did place a small cement restrictor distally before placing the cement. Once the cement hardened a +5/36 mm metal articular ball was placed. The hip was relocated and once again found to be stable. Attention drawn toward closing. The wounds irrigated cosigns pulsatile lavage solution. I did inject locally with 60 cc of half percent Marcaine with epinephrine. The posterior capsule and external rotators were then repaired through drill holes in the posterior trochanter as a single layer with #2 Tycron suture. The IT band gluteal fascia then closed #1 PDS suture in running fashion for subcutaneous tissues then closed with 2 layers with a deep layer #1 Vicryl suture in the subcutaneous tissues with 2-0 Dexon suture in a buried interrupted fashion. Skin was closed skin edilson. Leg was then cleaned and dried and sterile dressed with Xeroform, 4 x 4's, ABD pad, foam tape was applied. Patient was then brought out of general anesthesia and transferred to the recovery room in stable condition. Patient tolerated the procedure well and there were no complications. Amanuel Tatum, my physician assistant production editor, was present for the entire procedure. His assistance was essential and required for appropriate patient positioning, prepping and draping, surgical exposure, performing the technical details of the operation, placement the implants, closure of the wound, and placement of the sterile bandage. I attest to the content of the Intraoperative Record and any orders documented therein. Any exceptions are noted below.
--- NOTE | 2023-02-02 14:14 | Anesthesiology Progress Note ---
Date of Service February 02, 2023 Anesthesia Post Procedure Vital Signs Vital Signs: Temp Pulse Pulse Resp BP Pulse Ox O2 Del Method 02/02/23 14:10 94 H 16 166/79 H 94 Room Air 02/02/23 14:00 93 H 14 159/77 H 94 Room Air 02/02/23 13:50 92 H 12 166/73 H 95 Room Air 02/02/23 13:40 90 16 179/84 H 100 Oxymask 02/02/23 13:30 87 16 168/68 H 100 Oxymask 02/02/23 13:22 36.2 C L 89 14 177/85 H 100 Oxymask 02/02/23 08:48 36.7 C 80 18 165/61 H 95 Room Air O2 Flow Rate 02/02/23 14:10 02/02/23 14:00 02/02/23 13:50 02/02/23 13:40 3 02/02/23 13:30 6 02/02/23 13:22 6 02/02/23 08:48 Pain Intensity Left Hip: Pain Intensity: 6 Transfer of Care Handoff Completed per policy Notes Mental Status: alert / awake / arousable Patient Amnestic to Procedure: Yes Nausea / Vomiting: adequately controlled Pain: adequately controlled Airway Patency, RR, SpO2: stable & adequate BP & HR: stable & adequate Hydration State: stable & adequate Anesthetic Complications: no major complications apparent and Pt Satisfied with anesthetic care
--- NOTE | 2023-02-02 14:25 | XRay Report ---
XR hip 1V RT w pelvis CLINICAL HISTORY: IN PACU - Post Surgical TECHNIQUE: 2 views of the right hip and single frontal view of the pelvis were obtained. Comparison: Comparison is made to hip radiographs 10/02/2022 FINDINGS: Patient is status post total hip arthroplasty with expected postsurgical changes including soft tissu e swelling and subcutaneous emphysema. Left hip arthroplasty is again noted. IMPRESSION: Expected postoperative appearance status post placement of total hip arthroplasty. ACT 112: Negative or not required by law. Electronically signed by: Paul Cho M.D. 02/02/2023 2:23 PM
[2023-02-02] MEDS ORDERED: METOCLOPRAMIDE HCL INJ 5 MG/ML 2 ML VIAL IV PRN (15:20)
[2023-02-02] MEDS ORDERED: traMADol HCL 50 MG TABLET PO PRN (15:20)
[2023-02-02] MEDS ORDERED: NALOXONE HCL 0.4 MG/1 ML VIAL/CARP IV PRN (15:20)
[2023-02-02] MEDS ORDERED: TELMISARTAN 40 MG TAB PO SCH (15:20)
[2023-02-02] MEDS ORDERED: ALUMINUM/MAGNESIUM SUSP 30 ML UDC PO PRN (15:20)
[2023-02-02] MEDS ORDERED: MAGNESIUM HYDROXIDE SUSP 30 ML UDC PO PRN (15:20)
[2023-02-02] MEDS ORDERED: bisacodyL 10 MG SUPP PR PRN (15:20)
[2023-02-02] MEDS ORDERED: HYDROmorphone INJ 0.5 MG/0.5 ML SYR IV PRN (15:20)
[2023-02-02] MEDS: SODIUM CHLORIDE 0.9% 1000ML 1,000 ML IV SCH (16:36)
[2023-02-02] MEDS: ASCORBIC ACID 500 MG TAB PO SCH (17:05)
[2023-02-02] MEDS: KETOROLAC TROMETHAMINE 15 MG/ML VIAL IV SCH ×2 (17:05→21:56)
[2023-02-02] MEDS: ACETAMINOPHEN 500 MG TAB PO SCH ×2 (17:05→21:56)
[2023-02-02] MEDS ORDERED: TRANEXAMIC ACID / 0.7% NACL 1,000 MG/100 ML BAG IV SCH (19:30)
[2023-02-02] MEDS: ceFAZolin 1000MG 1,000 MG/7.5 ML SYR IV SCH (19:57)
[2023-02-02] MEDS: ARTIFICIAL TEARS OP SCH (19:57)
[2023-02-02] MEDS: LOSARTAN POTASSIUM 50 MG TAB PO SCH (19:58)
[2023-02-02] MEDS: DOCUSATE SODIUM 100 MG CAP PO SCH (19:58)
[2023-02-02] MEDS: SENNA 8.6 MG TAB PO SCH (19:59)
[2023-02-03] MEDS: KETOROLAC TROMETHAMINE 15 MG/ML VIAL IV SCH ×4 (03:23→22:31)
[2023-02-03] MEDS: ceFAZolin 1000MG 1,000 MG/7.5 ML SYR IV SCH (03:24)
[2023-02-03] MEDS: SODIUM CHLORIDE 0.9% 1000ML 1,000 ML IV SCH (03:31)
[2023-02-03] MEDS: ACETAMINOPHEN 500 MG TAB PO SCH ×3 (06:06→22:30)
[2023-02-03 06:09] LABS: Basophils # (auto) 0.01 K/uL (0-0.2); Basophils % (auto) 0.1 %; Eosinophils # (auto) 0.06 K/uL (0-0.50); Eosinophils % (auto) 0.5 %; Hematocrit (blood only) 27.5 % (37.0-47.0); Hemoglobin 9.2 g/dl (12.0-16.0); Immature Granulocytes # (auto) 0.06 K/uL (0.01-0.20); Immature Granulocytes % (auto) 0.5 %; Lymphocytes # (auto) 2.26 K/uL (1.2-3.4); Lymphocytes % (auto) 17.1 %; Mean Corpuscular Hemoglobin 29.4 pg (25.0-34.0); Mean Corpuscular Hgb Conc 33.5 g/dL (32.0-36.0); Mean Corpuscular Volume 87.9 fL (80.0-100.0); Mean Platelet Volume 10.9 fL (9.4-12.4); Monocytes # (auto) 1.08 K/uL (0.11-0.59); Monocytes % (auto) 8.2 %; Neutrophils # (auto) 9.74 K/uL (1.40-6.50); Neutrophils % (auto) 73.6 %; Platelet Count 229 K/uL (130-400); RDW Coefficient of Variation 13.1 % (11.5-14.5); RDW Standard Deviation 42.3 fL (36.4-46.3); Red Blood Count 3.13 M/uL (4.20-5.40); White Blood Count 13.21 K/ul (4.8-10.8)
[2023-02-03 06:19] LABS: BUN Creatinine Ratio 24.5 (10-20); Creatinine Clr Calc Pharmacy 30.7 ml/min; Est GFR (African American) 57.3 ml/min; Est GFR (Non-African American) 49.4 ml/min; Potassium 4.2 mmol/L (3.5-5.1)
[2023-02-03] MEDS ORDERED: dexAMETHasone 10 MG in SYRINGE 0 ML IV SCH (08:00)
--- NOTE | 2023-02-03 08:04 | Orthopedic Progress Note ---
Date of Service February 03, 2023 Assessment & Plan (1) Status post total hip replacement, right: Patient is postop day 1 from right hip replacement doing well. Pain is controlled. Hip is located. She is neurologically intact. She is mildly anemic but asymptomatic. Plan: 1 DVT prophylax include Thiede teds SCDs and aspirin twice a day. 2. Pain control doing well with current pain regimen #3 PT OT. She can weight- bear as tolerated. Needs to obey hip precautions. 4. Disposition she is hoping to be discharged to [facility] versus rehab. social human services assistants working on that. Subjective . Postop day 1 from a right total hip replacement done well. Really not much pain. She got up and walked last evening and this morning. No chest pain or shortness of breath. Not feeling dizzy or lightheaded. Review of Systems All systems reviewed & are unremarkable except as noted in HPI & below. Physical Exam . Physical exam reveals an elderly female. Sitting up in her bedside chair looks completely comfortable. Examination of the right hip reveals the dressing to clean dry and intact. Leg lengths are equal. She can dorsiflex and plantar flex her foot appropriately. She is neurologically intact. Respiratory normal respiratory effort, lungs clear to auscultation Cardiovascular RRR, no murmur, no edema Gastrointestinal (Abdomen) normal bowel sounds, soft, nontender, no hepatosplenomegaly Results & Data Results & Data Laboratory Results . Hemoglobin 9.2. MAC is 27.5. Diagnostic Findings . PG Care Time/CCT Total # of Minutes Spent Total Time Spent with Patient: Total time spent is greater than 50% in coordination of care (as documented) at patient's floor/unit and/or counseling patient: Coding Level of Care Code 32499 Post Operative Follow-Up Diagnoses Status post total hip replacement, right Z96.641
[2023-02-03] MEDS: FUROSEMIDE 20 MG TAB PO SCH (08:26)
[2023-02-03] MEDS: OMEGA-3 (PURIFIED FISH OIL) 1 GM CAP PO SCH (08:27)
[2023-02-03] MEDS: ASCORBIC ACID 500 MG TAB PO SCH ×2 (08:28→17:05)
[2023-02-03] MEDS: MAGNESIUM OXIDE 400 MG TAB PO SCH (08:28)
[2023-02-03] MEDS: LOSARTAN POTASSIUM 25 MG TAB PO SCH (08:28)
[2023-02-03] MEDS: DOCUSATE SODIUM 100 MG CAP PO SCH ×3 (08:29→20:31)
[2023-02-03] MEDS: CEROVITE ADV FORMULA TAB PO SCH (08:29)
[2023-02-03] MEDS: FENOFIBRATE MICRONIZED 134 MG PO SCH (08:31)
[2023-02-03] MEDS: ARTIFICIAL TEARS OP SCH ×2 (08:31→20:31)
[2023-02-03] MEDS ORDERED: NON-FORMULARY MEDICATION (Garlic 1,000 mg capsule) PO SCH (09:00)
[2023-02-03] MEDS ORDERED: NON-FORMULARY MEDICATION (Biotin 5 mg Tablet) PO SCH (09:00)
[2023-02-03] MEDS ORDERED: MULTIVITAMIN TAB PO SCH (09:00)
[2023-02-03] MEDS: SENNA 8.6 MG TAB PO SCH (20:31)
[2023-02-03] MEDS: LOSARTAN POTASSIUM 50 MG TAB PO SCH (20:34)
[2023-02-04] MEDS: KETOROLAC TROMETHAMINE 15 MG/ML VIAL IV SCH ×2 (05:14→09:14)
[2023-02-04] MEDS: ACETAMINOPHEN 500 MG TAB PO SCH ×3 (05:15→20:54)
--- NOTE | 2023-02-04 07:49 | Orthopedic Progress Note ---
Date of Service February 04, 2023 Assessment & Plan (1) Status post total hip replacement, right: Patient is postop day 2 from right total hip placement doing well. Pain is controlled but hip is located. She is neurologically intact. Plan: 1. DVT prophylax include Thiede teds SCDs and aspirin twice a day. 2. Pain control doing well with current pain regimen. 3. PT OT. Weight-bear as tolerated. Right total hip protocol. 4. Disposition she is open to go to prison facility. She has been to [facility] before and were working on that. She just waiting for placement. Likely placement tomorrow. Subjective . 88-year-old female postoperative day 2 from a right total hip replacement. She is doing pretty well. She says she feels much better now that she had a bowel movement. Her hip pain is controlled. No other complaints. Just wait for placement. Does not feel comfortable going home on her own. Review of Systems All systems reviewed & are unremarkable except as noted in HPI & below. Physical Exam . Physical examination reveals a pleasant elderly female. Sitting up in bed looks pretty comfortable this morning. Examination of the right hip reveals the incision to be clean dry and intact. Leg lengths are equal. No drainage. She is neurologically intact Results & Data Results & Data Laboratory Results . Diagnostic Findings . PG Care Time/CCT Total # of Minutes Spent Total Time Spent with Patient: Total time spent is greater than 50% in coordination of care (as documented) at patient's floor/unit and/or counseling patient: Coding Level of Care Code 71650 Post Operative Follow-Up Diagnoses Status post total hip replacement, right Z96.641
[2023-02-04] MEDS: DOCUSATE SODIUM 100 MG CAP PO SCH ×2 (09:13→20:54)
[2023-02-04] MEDS: MAGNESIUM OXIDE 400 MG TAB PO SCH (09:14)
[2023-02-04] MEDS: CEROVITE ADV FORMULA TAB PO SCH (09:14)
[2023-02-04] MEDS: ASCORBIC ACID 500 MG TAB PO SCH ×2 (09:14→17:34)
[2023-02-04] MEDS: LOSARTAN POTASSIUM 25 MG TAB PO SCH (09:14)
[2023-02-04] MEDS: OMEGA-3 (PURIFIED FISH OIL) 1 GM CAP PO SCH (09:15)
[2023-02-04] MEDS: FENOFIBRATE MICRONIZED 134 MG PO SCH (09:15)
[2023-02-04] MEDS: ARTIFICIAL TEARS OP SCH ×2 (09:15→20:54)
[2023-02-04] MEDS: SENNA 8.6 MG TAB PO SCH (20:54)
[2023-02-04] MEDS: LOSARTAN POTASSIUM 50 MG TAB PO SCH (20:55)
[2023-02-05] MEDS: ACETAMINOPHEN 500 MG TAB PO SCH ×3 (05:56→21:01)
[2023-02-05] MEDS: ASCORBIC ACID 500 MG TAB PO SCH ×2 (07:37→15:39)
[2023-02-05] MEDS: CEROVITE ADV FORMULA TAB PO SCH (07:38)
[2023-02-05] MEDS: FUROSEMIDE 20 MG TAB PO SCH (07:38)
[2023-02-05] MEDS: ARTIFICIAL TEARS OP SCH ×2 (07:38→21:01)
[2023-02-05] MEDS: OMEGA-3 (PURIFIED FISH OIL) 1 GM CAP PO SCH (07:38)
[2023-02-05] MEDS: LOSARTAN POTASSIUM 25 MG TAB PO SCH (07:39)
[2023-02-05] MEDS: MAGNESIUM OXIDE 400 MG TAB PO SCH (07:39)
[2023-02-05] MEDS: DOCUSATE SODIUM 100 MG CAP PO SCH ×2 (07:39→21:32)
[2023-02-05] MEDS: FENOFIBRATE MICRONIZED 134 MG PO SCH (07:40)
--- NOTE | 2023-02-05 09:39 | Orthopedic Progress Note ---
Date of Service February 05, 2023 Assessment & Plan (1) Status post total hip replacement, right: 88-year-old female postop day 3 from right total hip placement doing well. Pain is controlled. Hip is located. She is neurologically intact. Plan: 1. DVT prophylaxis including thigh-high teds, SCDs, and aspirin twice a day. 2. Pain control doing well with current pain regimen. 3. PT OT. She can weight-bear as tolerated. Needs to obey hip precautions. 4. Disposition: Just waiting for placement. She does not feel comfortable going home on her own which is certainly reasonable at her age and we will try and get her into a prison facility versus rehab. Subjective . 88-year-old female postop day 3 from a right total hip replacement. She is doing well. Really not have much in the way of pain. No chest pain or shortness of breath. Not feeling dizzy or lightheaded. Just wait for placement. She does not feel comfortable going home on her own. She lives by herself. Review of Systems All systems reviewed & are unremarkable except as noted in HPI & below. Physical Exam . Physical examination was a pleasant elderly female. Sitting up in her bedside chair looks comfortable. Examination of the right hip reveals the incision to be clean dry and intact. No drainage. Fairly minimal swelling. Leg lengths are equal. She is neurologically intact. Results & Data Results & Data Laboratory Results . Diagnostic Findings . PG Care Time/CCT Total # of Minutes Spent Total Time Spent with Patient: Total time spent is greater than 50% in coordination of care (as documented) at patient's floor/unit and/or counseling patient: Coding Level of Care Code 32442 Post Operative Follow-Up Diagnoses Status post total hip replacement, right Z96.641
[2023-02-05] MEDS: LOSARTAN POTASSIUM 50 MG TAB PO SCH (21:01)
[2023-02-05] MEDS: SENNA 8.6 MG TAB PO SCH (21:32)
[2023-02-06] MEDS: ACETAMINOPHEN 500 MG TAB PO SCH ×2 (06:07→13:51)
[2023-02-06] MEDS: DOCUSATE SODIUM 100 MG CAP PO SCH (07:52)
[2023-02-06] MEDS: ARTIFICIAL TEARS OP SCH (07:53)
[2023-02-06] MEDS: MAGNESIUM OXIDE 400 MG TAB PO SCH (08:40)
[2023-02-06] MEDS: ASCORBIC ACID 500 MG TAB PO SCH (08:40)
[2023-02-06] MEDS: CEROVITE ADV FORMULA TAB PO SCH (08:40)
[2023-02-06] MEDS: LOSARTAN POTASSIUM 25 MG TAB PO SCH (08:41)
[2023-02-06] MEDS: FENOFIBRATE MICRONIZED 134 MG PO SCH (08:41)
[2023-02-06] MEDS: OMEGA-3 (PURIFIED FISH OIL) 1 GM CAP PO SCH (08:41)
[2023-02-06] MEDS ORDERED: ASPIRIN 81 MG CHEW PO SCH (09:15)
--- NOTE | 2023-02-06 11:13 | Orthopedic Progress Note ---
Date of Service February 06, 2023 Assessment & Plan (1) Status post total hip replacement, right: 88-year-old female postop day 4 from right total hip replacement doing quite well. She is feeling more comfortable getting around. She is decided to go home with home health. No chest pain. She appears medically stable. She is neurologically intact. Plan: 1. DVT prophylaxis glucide teds SCDs and aspirin twice a day. 2. Pain control doing well with current pain regimen. Using just Tylenol for the most part. 3. PT OT. Weight-bear as tolerated. Needs to obey hip precautions. 4. Disposition she is can be discharged home with home health. Subjective . 88-year-old female now postop day 4 from right total hip replacement. She is doing pretty well. Pain is controlled. She is getting around better. Feels more more comfortable getting around. Denies any chest pain or shortness of breath. Not feeling dizzy or lightheaded. Review of Systems All systems reviewed & are unremarkable except as noted in HPI & below. Physical Exam . Physical examination was a pleasant early female. She is walking around the room with a walker when I visited this morning. Examination of the right hip reveals the incision site to be clean dry and intact. No second drainage. Minimal swelling. Leg lengths are equal. She is neurologically intact. Results & Data Results & Data Laboratory Results . Diagnostic Findings . PG Care Time/CCT Total # of Minutes Spent Total Time Spent with Patient: Total time spent is greater than 50% in coordination of care (as documented) at patient's floor/unit and/or counseling patient: Coding Level of Care Code 95936 Post Operative Follow-Up Diagnoses Status post total hip replacement, right Z96.641
--- NOTE | 2023-02-13 06:37 | Discharge Summary ---
Date of Service February 13, 2023 Discharge Data Procedures Performed Operation Date: 02/02/23 09:55 Actual Procedures p Right Total Hip Arthroplasty(Right) - James Duran MD Hospital Course (1) Status post total hip replacement, right: This is a 88 year old patient admitted on 02/02/23 and underwent total hip arthroplasty. She tolerated the procedure well and there were no complications. Transferred to the PACU post op and later to the orthopedic floor for further care. She was given ancef for antibiotic prophylaxis. She was also given KARLA stockings, SCDs, and aspirin for DVT prophylaxis. Hemoglobin, hematocrit, and vital signs were monitored during her hospital stay and remained stable. Did not require any blood transfusions. There were no complications during her hospital stay. By post op day #4 the patient was tolerating a regular diet, pain was reasonably controlled with oral pain medicine, and she was participating in physical therapy. On post op day #4 the patient was discharged home and set up with home health care. She was given printed discharge instructions including prescriptions for extra strength tylenol, aspirin, and tramadol. Continue hip precautions. Continue physical therapy, weight bearing as tolerated. Continue KARLA stockings. Follow up approximately 2 weeks post op or sooner if there are problems or concerns. Coding Level of Care Code None Diagnoses Status post total hip replacement, right Z96.641
== END 2023-02-06 13:58 | disposition home health service (06) | DRG 470 ==
LOC: ASU 07:47 → 3E 13:25

== ENCOUNTER 2024-03-13 17:36 | Inpatient (IN) ==
--- NOTE | 2024-03-13 17:45 | ED Triage Note ---
Date of Service March 13, 2024 Provider in Triage Author: Pankaj Mercado History of Present Illness This patient was briefly evaluated while in triage. An abbreviated physical exam was performed. This patient is a 89-year-old Female who presents to the ED for evaluation had outpatient labs done earlier today and was called and told that her sodium was low "123" dizziness, had a fall last week Physical Exam GENERAL: NAD CARDIOVASCULAR: RRR RESPIRATORY: CTA ABDOMEN: BS x 4. Nontender to palpation. Initial orders for labs and / or imaging were placed and patient was placed in the waiting area until a bed is available. Please see further documentation for the full ED course.
[2024-03-13 18:27] LABS: Basophils # (auto) 0.02 K/uL (0.00-0.20); Basophils % (auto) 0.3 %; Eosinophils # (auto) 0.09 K/uL (0.00-0.50); Eosinophils % (auto) 1.1 %; Hematocrit (blood only) 36.8 % (37.0-47.0); Hemoglobin 12.7 g/dl (12.0-16.0); Immature Granulocytes # (auto) 0.04 K/uL (0.01-0.20); Immature Granulocytes % (auto) 0.5 %; Lymphocytes # (auto) 2.37 K/uL (1.20-3.40); Lymphocytes % (auto) 30.3 %; Mean Corpuscular Hemoglobin 29.7 pg (25.0-34.0); Mean Corpuscular Hgb Conc 34.5 g/dL (32.0-36.0); Mean Corpuscular Volume 86.2 fL (80.0-100.0); Mean Platelet Volume 10.7 fL (9.4-12.4); Monocytes # (auto) 0.56 K/uL (0.11-0.59); Monocytes % (auto) 7.2 %; Neutrophils # (auto) 4.75 K/uL (1.40-6.50); Neutrophils % (auto) 60.6 %; Platelet Count 357 K/uL (130-400); RDW Coefficient of Variation 12.4 % (11.5-14.5); Red Blood Count 4.27 M/uL (4.20-5.40); White Blood Count 7.83 K/ul (4.8-10.8)
[2024-03-13 18:48] LABS: Albumin Globulin Ratio 1.3 (0.9-2); Albumin Level 4.7 gm/dl (3.4-5.0); BUN Creatinine Ratio 24.2 (10-20); Bilirubin,Total 0.8 mg/dl (0.2-1.0); Calcium 10.4 mg/dl (8.6-10.3); Creatinine Clr Calc Pharmacy 46.6 ml/min; Est GFR (African American) 91.4 ml/min; Est GFR (Non-African American) 78.9 ml/min; Globulin 3.6 gm/dl (2.5-4.0); Magnesium 1.7 mg/dl (1.7-2.4); Potassium 4.4 mmol/L (3.5-5.1); Total Protein 8.3 gm/dl (6.0-8.3)
--- NOTE | 2024-03-13 21:18 | History & Physical Report ---
Date of Service March 13, 2024 Assessment & Plan (1) Acute hyponatremia: (2) Hypercholesteremia: (3) Hypertension: (4) Hyponatremia: (5) Hypomagnesemia: Plan Acute hyponatremia/history of chronic hyponatremia- Sodium 122 Serum osmolality 264 Urine osmolality 270 Fluid restrict 1500 mL Sodium chloride 1 g p.o. now, and then twice daily Give 100 mL 3% hypertonic saline this evening BMP every 4 hours Hold furosemide Hypomagnesemia- Magnesium 1.7 Continue home oral magnesium supplement Give magnesium sulfate 1 g IV Recheck laboratories in a.m. Hypertension- Continue telmisartan/losartan substitute Hyperlipidemia- Continue fenofibrate History of Present Illness Chief Complaint: The patient was referred to the emergency department due to low sodium levels on outpatient laboratories Primary Care Provider: Misael Victor MD The patient is a 89-year-old female with a past medical history including labile blood pressure, hypercalcemia, hypercholesterolemia, hypertension, bilateral hip osteoarthritis. She was initially seen at the emergency department on 03/07/2024 following a head injury after a ground-level fall. At that time she had CT scan of the head which was negative, and CT scan of the cervical spine which showed chronic degenerative disc disease. The patient had gone laboratories at her outpatient PCPs office, which then revealed a sodium of 123, and she was referred to the ED for assessment this evening. Follow-up sodium this evening was 122, and patient was referred for evaluation for admission. The patient reports that she otherwise feels fine at this point, did have a transient headache a few days ago when she hit her head, and since that time has had no significant issues. Allergies Allergy/AdvReac Type Severity Reaction Status Date / Time No Known Allergies Allergy Verified 03/13/24 20:32 Home Medications Medication Instructions Recorded Confirmed Type biotin 5 mg tablet 5 mg PO QAM 12/09/18 03/13/24 History fish, borage, flaxseed oils-omega 1 cap PO QAM 12/09/18 03/13/24 History 3,6,9 comb no.1 1,200 mg capsule ([place] 3-6-9) magnesium 250 mg tablet 250 mg PO QAM 12/09/18 03/13/24 History wkevgttu-prl-gpoqx acid 0.4 1 tab PO QAM 12/09/18 03/13/24 History mg-lycopene 300 mcg-lutein 250 mcg tablet (Centrum Silver) peg 400-propylene glycol 0.4 %-0.3 1 drp ophthalmic (eye) BID 02/08/22 03/13/24 History % eye drops (Systane Ultra) garlic 1,000 mg capsule 1,000 mg PO QAM 04/28/22 03/13/24 History fenofibrate micronized 134 mg 134 mg PO DAILY #90 caps 10/12/23 03/13/24 Rx capsule latanoprost 0.005 % eye drops 1 drp OPL HS 10/12/23 03/13/24 History calcium carbonate 500 mg-vitamin 1 tab PO DAILY 03/10/24 03/13/24 History D3 10 mcg (400 unit) tablet (Calcium 500 With D) amoxicillin 500 mg tablet 2,000 mg PO DIRECTED PRN 1 HR 03/13/24 03/13/24 History PRIOR TO DENTAL PROCEDURES furosemide 20 mg tablet (Lasix) 10 mg PO 3XWK 03/13/24 03/13/24 History telmisartan 40 mg tablet (Micardis) See Rx Instructions .Route .COMPLEX 03/13/24 03/13/24 History Past Med/Surg History Problem List (Updated 03/13/24 @ 23:31 by Nicolas Ramries MD) Hypomagnesemia Acute hyponatremia Acute pain of left hip (Acute) Contusion of head (Acute) Fall (Acute) Status post total hip replacement, right Labile blood pressure (Chronic) Osteopenia (Chronic) Hypercalcemia (Chronic) Leukocytosis Loose bowel movement Degenerative joint disease of left hip Leg length difference, acquired Left knee DJD Leukocytosis Hypercholesteremia (Chronic) Hypertension (Chronic) Hyponatremia (Chronic) Chronic with fluctuating levels in the high 120s to low 130s Unclear etiology per remote nephrology notes Status post left hip replacement Left DESI (02/17/22): Grade 2 view, ETT 7.0 at [facility] Arthritis of right hip Medical History History of shingles 05/2022- "Had twice, after healing from the first time, got it again 3 weeks later" Encounter for pre-operative examination Arthritis Surgical History History of total right hip replacement Family History Brother Stomach cancer Alcohol abuse Diabetes Mother Stomach cancer Colonic polyp Colorectal cancer Father Myocardial infarction Aunt Breast cancer Denies family history of Ovarian cancer Prostate cancer Social History Smoking Status: Never smoker Second Hand Exposure: Yes (hx- smoked); Do You Dip or Chew Tobacco: No; Hx Alcohol Use: No Hx Substance Use: No Preferred Language: Urugu[place] Communication Ability: Effective Visual Impairment: No Limitations Hearing Ability: Normal 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 Beliefs That Will Affect Care: None marital status: / Current Living Situation: Alone current occupational status: retired Feels Safe at Home: Yes Childhood Exposure to Second-Hand Smoke: Yes Diet: regular Dental Care, Regularly: Yes Physical Activity Frequency: Daily Seatbelt Use: always Sunscreen Use: No Assistive Devices: Cane, Stair Lift and Walker Review of Systems Review of Systems: The patient denies chest pain, palpitations, shortness of breath, dyspnea on exertion, cough, lower extremity swelling, sore throat, fevers, chills, sweats, weight change, fatigue, nausea, vomiting, diarrhea , constipation, abdominal pain, pelvic pain, blood in urine or stool, dysuria, urinary frequency or urgency, memory loss, loss of consciousness, rash, abnormal bruising or bleeding, imbalance, focal or generalized weakness, numbness or tingling in arms or legs, generalized arthralgias or myalgias, back or neck pain, or night sweats. The review of systems is otherwise negative other than for that already noted above, and at least 10 systems have been reviewed. Physical Exam Physical Exam: The patient is awake, alert and oriented 3, well developed and well nourished, normocephalic and atraumatic, lying in bed and in no acute distress. HEENT--PERRL, EOMI, mucous membranes and oropharynx normal Neck--supple. No JVD. No bruits. Thyroid normal, trachea midline, no adenopathy. Heart--normal S1 and S2. No murmurs, rubs or gallops. Lungs--clear bilaterally, no respiratory distress, no accessory muscle use. Abdomen--normal bowel sounds and soft. Nontender. Nondistended, no hernias or masses, no organomegaly. Extremities--no cyanosis or clubbing. No edema. Dermatologic--normal skin turgor, normal color, no abnormal lymph nodes, no rash. Neurologic--cranial nerves II through XII grossly intact. Rheumatologic--normal range of motion. Psychiatric--normal affect. Results & Data Results & Data Vital Signs (Past 12 Hours) Vital Signs Temp Pulse Pulse Resp BP BP Pulse Ox 03/13/24 19:28 66 18 161/83 H 96 03/13/24 19:27 66 03/13/24 19:27 66 16 96 03/13/24 17:42 36.6 C 77 18 191/80 H 98 O2 Del Method 03/13/24 19:28 Room Air 03/13/24 19:27 03/13/24 19:27 Room Air 03/13/24 17:42 Room Air Laboratory Results Laboratory Results WBC 7.83 K/ul (4.8-10.8) 03/13/24 18:01 RBC 4.27 M/uL (4.20-5.40) 03/13/24 18:01 Hgb 12.7 g/dl (12.0-16.0) 03/13/24 18:01 Hct 36.8 % (37.0-47.0) L 03/13/24 18:01 MCV 86.2 fL (80.0-100.0) 03/13/24 18:01 MCH 29.7 pg (25.0-34.0) 03/13/24 18:01 MCHC 34.5 g/dL (32.0-36.0) 03/13/24 18:01 RDW Std Deviation 39.0 fL (36.4-46.3) 03/13/24 18:01 RDW Coeff of Monse 12.4 % (11.5-14.5) 03/13/24 18:01 Plt Count 357 K/uL (130-400) 03/13/24 18:01 MPV 10.7 fL (9.4-12.4) 03/13/24 18:01 Immature Gran % (Auto) 0.5 % 03/13/24 18:01 Neut % (Auto) 60.6 % 03/13/24 18:01 Lymph % (Auto) 30.3 % 03/13/24 18:01 [place] % (Auto) 7.2 % 03/13/24 18:01 Eos % (Auto) 1.1 % 03/13/24 18:01 Baso % (Auto) 0.3 % 03/13/24 18:01 Neut # (Auto) 4.75 K/uL (1.40-6.50) 03/13/24 18:01 Lymph # (Auto) 2.37 K/uL (1.20-3.40) 03/13/24 18:01 [place] # (Auto) 0.56 K/uL (0.11-0.59) 03/13/24 18:01 Eos # (Auto) 0.09 K/uL (0.00-0.50) 03/13/24 18:01 Baso # (Auto) 0.02 K/uL (0.00-0.20) 03/13/24 18:01 Immature Gran # (Auto) 0.04 K/uL (0.01-0.20) 03/13/24 18:01 Sodium 122 mmol/L (136-145) L 03/13/24 18:01 Potassium 4.4 mmol/L (3.5-5.1) 03/13/24 18:01 Chloride 86 mmol/L (98-107) L 03/13/24 18:01 Carbon Dioxide 28 mmol/L (21-32) 03/13/24 18:01 Anion Gap 8 (3-11) 03/13/24 18:01 BUN 16 mg/dl (6-23) 03/13/24 18:01 Creatinine 0.66 mg/dl (0.6-1.2) 03/13/24 18:01 Est Cr Clr Drug Dosing 46.6 ml/min 03/13/24 18:01 Est GFR ( Amer) 91.4 ml/min 03/13/24 18:01 Est GFR (Non-Af Amer) 78.9 ml/min 03/13/24 18:01 BUN/Creatinine Ratio 24.2 (10-20) H 03/13/24 18:01 Glucose 111 mg/dl (70-99(Fasting)) H 03/13/24 18:01 Osmolality 264 mOsm/kg (280-300) L 03/13/24 18:01 Calcium 10.4 mg/dl (8.6-10.3) H 03/13/24 18:01 Magnesium 1.7 mg/dl (1.7-2.4) 03/13/24 18:01 Total Bilirubin 0.8 mg/dl (0.2-1.0) 03/13/24 18:01 AST 36 U/L (13-39) 03/13/24 18:01 ALT 28 U/L (7-52) 03/13/24 18:01 Alkaline Phosphatase 50 U/L (34-104) 03/13/24 18:01 Total Protein 8.3 gm/dl (6.0-8.3) 03/13/24 18:01 Albumin 4.7 gm/dl (3.4-5.0) 03/13/24 18:01 Globulin 3.6 gm/dl (2.5-4.0) 03/13/24 18:01 Albumin/Globulin Ratio 1.3 (0.9-2) 03/13/24 18:01 Urine Color Yellow 03/13/24 21:09 Urine Appearance Clear (Clear) 03/13/24 21:09 Urine pH 7.5 (4.5-7.5) 03/13/24 21:09 Ur Specific [place] 1.010 (1.000-1.030) 03/13/24 21:09 Urine Protein Negative (Negative) 03/13/24 21:09 Urine Glucose (UA) Negative (Negative) 03/13/24 21:09 Urine Ketones Negative (Negative) 03/13/24 21:09 Urine Blood Negative (Negative) 03/13/24 21:09 Urine Nitrite Negative (Negative) 03/13/24 21:09 Urine Bilirubin Negative (Negative) 03/13/24 21:09 Urine Urobilinogen Negative (Negative) 03/13/24 21:09 Ur Leukocyte Esterase Negative (Negative) 03/13/24 21:09 Urine Osmolality 270 mOsm/kg (500-800) L 03/13/24 21:09 Urine Sodium 57 mmol/L 03/13/24 21:09 Urine Potassium 20.1 mmol/L 03/13/24 21:09 Urine Chloride 42 mmol/L 03/13/24 21:09 Code Status & VTE Plan Code Status Full code VTE Prophylaxis Plan VTE Prophylaxis will be ordered: Yes PG Care Time/CCT Total # of Minutes Spent Total Time Spent with Patient: Total time spent is greater than 50% in coordination of care (as documented) at patient's floor/unit and/or counseling patient: Coding Level of Care Code 36814 INT INP/OBS CARE MIN Diagnoses Acute hyponatremia E87.1 Hypercholesteremia E78.00 Hypertension I10 Hypertension type: essential hypertension Hyponatremia E87.1 Hypomagnesemia E83.42 (3) Hypertension Hypertension type: essential hypertension Qualified Code(s): I10 - Essential (primary) hypertension
--- NOTE | 2024-03-13 21:24 | Emergency Department Note ---
Impression & Plan Hyponatremia ED Provider Note NAME: TAMEKA EDGE AGE: 89 SEX: F : 1935 ARRIVES VIA: Walk-In INFORMANT: Patient, ED PROVIDER(S): Drew Alonso MD CHIEF COMPLAINT: Low sodium, outpatient referral MEDICAL DECISION MAKING: Patient presents due to concern for low sodium in the outpatient setting was referred here for further evaluation and treatment. IV was established and blood work was obtained. Patient has a normal white count hemoglobin and platelet count. Sodium 122. Patient did have's urine and urine osmolality ordered along with urine electrolytes. Osmolality 264. Other electrolytes were unremarkable. Urinalysis does not show evidence of blood or infection. The patient's urine osmolality is also low. Patient does suffer from chronic hyponatremia although this is more pronounced. Given these concerns I did speak the on-call hospitalist service Dr. Chavez and the patient was admitted to the medicine service. Discussion w/ other healthcare providers: Dr. Alarcon inpatient medicine service Prior /Outside records reviewed: None Differential diagnosis: Infection, dehydration, metabolic abnormality, hypo/hyperglycemia, electrolyte imbalance, anemia, UTI, pneumonia, thyroid dysfunction among others were considered. Diagnostics, as interpreted by me: ECG: Sinus with first-degree AV block, rate of 68 prolonged OK, wide QRS, left bundle branch block. Cardiac monitoring: An order was placed for continuous cardiac monitoring. The monitor shows a rate of 67 with sinus rhythm. Patient was placed on pulse oximetry Medical decision rules: None Imaging studies: None HPI: Patient presents due to concern for abnormal outpatient blood work which included a low sodium. The patient does have a history of lower sodium but was recently seen here in the emergency department for fall and head injury diagnosed with a mild concussion and had routine blood work that was completed today. The patient was told that she had low sodium and and was advised to come in here. Patient states that she has been drinking water but also some Gatorade. The patient denies any specific salt restriction. The patient denies any leg swelling. No chest pains or shortness of breath no nausea vomiting or diarrhea. Patient does not feel weak or fatigued. Patient is accompanied by family member at bedside who conveys the same. PAST MEDICAL HISTORY: See Below PAST SURGICAL HISTORY: See Below SOCIAL HISTORY: See Below HOME MEDICATIONS: See Below ALLERGIES: See Below VITALS: See Below PHYSICAL EXAMINATION: GENERAL: NAD, non-toxic. Wearing glasses and a mask. EYE EXAM: Normal conjunctiva. PERRL, no anisocoria and EOM's grossly intact w/o pain. OROPHARYNX: Moist mucus membranes, grossly normal dentition. NECK: Trachea midline, no stridor. LUNGS: Clear to auscultation. Normal chest wall mechanics. HEART: NSR, no MRG. ABDOMEN: Abdomen soft, non-tender, no masses, no rebound or guarding. BACK: No CVA TTP. SKIN: No rashes and no bruising. UPPER EXTREMITIES: Upper extremities are grossly normal. LOWER EXTREMITIES: Grossly normal, no edema. NEURO EXAM: A&O x3, cranial nerves II-XII grossly intact, normal speech, moves all 4 extremities. Past Med/Surg History Problem List (Updated 03/13/24 @ 22:23 by Drew Alonso MD) Acute pain of left hip (Acute) Contusion of head (Acute) Fall (Acute) Status post total hip replacement, right Labile blood pressure (Chronic) Osteopenia (Chronic) Hypercalcemia (Chronic) Leukocytosis Loose bowel movement Degenerative joint disease of left hip Leg length difference, acquired Left knee DJD Leukocytosis Hypercholesteremia (Chronic) Hypertension (Chronic) Hyponatremia (Chronic) Chronic with fluctuating levels in the high 120s to low 130s Unclear etiology per remote nephrology notes Status post left hip replacement Left DESI (02/17/22): Grade 2 view, ETT 7.0 at [facility] Arthritis of right hip Medical History History of shingles 05/2022- "Had twice, after healing from the first time, got it again 3 weeks later" Encounter for pre-operative examination Arthritis Surgical History History of total right hip replacement Family History Brother Stomach cancer Alcohol abuse Diabetes Mother Stomach cancer Colonic polyp Colorectal cancer Father Myocardial infarction Aunt Breast cancer Denies family history of Ovarian cancer Prostate cancer Social History Smoking Status: Never smoker Second Hand Exposure: Yes (hx- smoked); Do You Dip or Chew Tobacco: No; Hx Alcohol Use: No Hx Substance Use: No Preferred Language: Danish Communication Ability: Effective Visual Impairment: No Limitations Hearing Ability: Normal 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 Beliefs That Will Affect Care: None marital status: / Current Living Situation: Alone current occupational status: retired Feels Safe at Home: Yes Childhood Exposure to Second-Hand Smoke: Yes Diet: regular Dental Care, Regularly: Yes Physical Activity Frequency: Daily Seatbelt Use: always Sunscreen Use: No Assistive Devices: Cane, Stair Lift and Walker Allergies Allergies Allergy/AdvReac Type Severity Reaction Status Date / Time No Known Allergies Allergy Verified 03/13/24 20:32 Home Meds Home Medications Medication Instructions Recorded Confirmed biotin 5 mg tablet 5 mg PO QAM 12/09/18 03/13/24 fish, borage, flaxseed oils-omega 1 cap PO QAM 12/09/18 03/13/24 3,6,9 comb no.1 1,200 mg capsule ([place] 3-6-9) magnesium 250 mg tablet 250 mg PO QAM 12/09/18 03/13/24 snegwzgt-lpu-jgioo acid 0.4 1 tab PO QAM 12/09/18 03/13/24 mg-lycopene 300 mcg-lutein 250 mcg tablet (Centrum Silver) peg 400-propylene glycol 0.4 %-0.3 1 drp ophthalmic (eye) BID 02/08/22 03/13/24 % eye drops (Systane Ultra) garlic 1,000 mg capsule 1,000 mg PO QAM 04/28/22 03/13/24 latanoprost 0.005 % eye drops 1 drp OPL HS 10/12/23 03/13/24 calcium carbonate 500 mg-vitamin 1 tab PO DAILY 03/10/24 03/13/24 D3 10 mcg (400 unit) tablet (Calcium 500 With D) amoxicillin 500 mg tablet 2,000 mg PO DIRECTED PRN 1 HR 03/13/24 03/13/24 PRIOR TO DENTAL PROCEDURES furosemide 20 mg tablet (Lasix) 10 mg PO 3XWK 03/13/24 03/13/24 telmisartan 40 mg tablet (Micardis) See Rx Instructions .Route .COMPLEX 03/13/24 03/13/24 Previous Rx's Medication Instructions Recorded fenofibrate micronized 134 mg 134 mg PO DAILY #90 caps 03/29/24 capsule Results & Data (ED) Vital Signs Vital Signs - 24 hr 03/13/24 17:42 03/13/24 19:27 03/13/24 19:27 Temperature 36.6 C Temperature Source Temporal Artery Scan Pulse Rate 77 66 66 Pulse Rate [Right Finger] Respiratory Rate 18 16 Respiratory Effort / Characteristics Non-Labored Respiratory Depth Normal Blood Pressure 191/80 H Blood Pressure [Left Arm] Blood Pressure Mean 117 Blood Pressure Mean [Left Arm] Pulse Oximetry 98 96 Oxygen Delivery Method Room Air Room Air Sepsis Recent Fever Within 48 Hours No Sepsis New/Unexplained Change in Mental Status N/A Sepsis Action Taken by Nursing No Action Required 03/13/24 19:28 Temperature Temperature Source Pulse Rate Pulse Rate [Right Finger] 66 Respiratory Rate 18 Respiratory Effort / Characteristics Respiratory Depth Blood Pressure Blood Pressure [Left Arm] 161/83 H Blood Pressure Mean Blood Pressure Mean [Left Arm] 109 Pulse Oximetry 96 Oxygen Delivery Method Room Air Sepsis Recent Fever Within 48 Hours Sepsis New/Unexplained Change in Mental Status Sepsis Action Taken by Group Home Medications Current Medication List: was personally reviewed by me Laboratory Data Attestation: I reviewed the patient's lab results. 03/13/24 18:01 03/13/24 18:01 Lab Results 03/13/24 03/13/24 Range/Units 18:01 21:09 WBC 7.83 (4.8-10.8) K/ul RBC 4.27 (4.20-5.40) M/uL Hgb 12.7 (12.0-16.0) g/dl Hct 36.8 L (37.0-47.0) % MCV 86.2 (80.0-100.0) fL MCH 29.7 (25.0-34.0) pg MCHC 34.5 (32.0-36.0) g/dL RDW Std Deviation 39.0 (36.4-46.3) fL RDW Coeff of Monse 12.4 (11.5-14.5) % Plt Count 357 (130-400) K/uL MPV 10.7 (9.4-12.4) fL Immature Gran % (Auto) 0.5 % Neut % (Auto) 60.6 % Lymph % (Auto) 30.3 % [place] % (Auto) 7.2 % Eos % (Auto) 1.1 % Baso % (Auto) 0.3 % Neut # (Auto) 4.75 (1.40-6.50) K/uL Lymph # (Auto) 2.37 (1.20-3.40) K/uL [place] # (Auto) 0.56 (0.11-0.59) K/uL Eos # (Auto) 0.09 (0.00-0.50) K/uL Baso # (Auto) 0.02 (0.00-0.20) K/uL Immature Gran # (Auto) 0.04 (0.01-0.20) K/uL Sodium 122 L (136-145) mmol/L Potassium 4.4 (3.5-5.1) mmol/L Chloride 86 L (98-107) mmol/L Carbon Dioxide 28 (21-32) mmol/L Anion Gap 8 (3-11) BUN 16 (6-23) mg/dl Creatinine 0.66 (0.6-1.2) mg/dl Est Cr Clr Drug Dosing 46.6 ml/min Est GFR ( Amer) 91.4 ml/min Est GFR (Non-Af Amer) 78.9 ml/min BUN/Creatinine Ratio 24.2 H (10-20) Glucose 111 H (70-99(Fasting)) mg/dl Osmolality 264 L (280-300) mOsm/kg Calcium 10.4 H (8.6-10.3) mg/dl Magnesium 1.7 (1.7-2.4) mg/dl Total Bilirubin 0.8 (0.2-1.0) mg/dl AST 36 (13-39) U/L ALT 28 (7-52) U/L Alkaline Phosphatase 50 (34-104) U/L Total Protein 8.3 (6.0-8.3) gm/dl Albumin 4.7 (3.4-5.0) gm/dl Globulin 3.6 (2.5-4.0) gm/dl Albumin/Globulin Ratio 1.3 (0.9-2) Urine Color Yellow Urine Appearance Clear (Clear) Urine pH 7.5 (4.5-7.5) Ur Specific [place] 1.010 (1.000-1.030) Urine Protein Negative (Negative) Urine Glucose (UA) Negative (Negative) Urine Ketones Negative (Negative) Urine Blood Negative (Negative) Urine Nitrite Negative (Negative) Urine Bilirubin Negative (Negative) Urine Urobilinogen Negative (Negative) Ur Leukocyte Esterase Negative (Negative) Urine Osmolality 270 L (500-800) mOsm/kg Urine Sodium 57 mmol/L Urine Potassium 20.1 mmol/L Urine Chloride 42 mmol/L Discharge Plan Visit Data Chief Complaint: Abnormal Labs/Diagnostic Testing Stated Complaint: LOW SODIUM, DOC REF ED Provider: Drew Alonso Discharge Problem: Hyponatremia Forms Stand Alone Forms: My [facility] Prescriptions Prescriptions: No Action garlic 1,000 mg capsule 1,000 mg PO QAM latanoprost 0.005 % drops 1 drp OPL HS Rx Instructions: L eye fenofibrate micronized 134 mg capsule 134 mg PO DAILY Qty: 90 3RF calcium carbonate-vitamin D3 [Calcium 500 With D] 500 mg-10 mcg (400 unit) tablet 1 tab PO DAILY magnesium 250 mg Tablet 250 mg PO QAM Centrum Silver 0.4-300-250 mg-mcg-mcg Tablet 1 tab PO QAM biotin 5 mg Tablet 5 mg PO QAM [place] 3-6-9 1,200 mg Capsule 1 cap PO QAM Systane Ultra 0.4-0.3 % Drops 1 drp OPHTHALMIC (EYE) BID amoxicillin 500 mg tablet 2,000 mg PO DIRECTED PRN (Reason: 1 HR PRIOR TO DENTAL PROCEDURES) telmisartan [Micardis] 40 mg tablet See Rx Instructions .ROUTE .COMPLEX Rx Instructions: TAKES 20 MG QAM, THEN 40 MG QPM. furosemide [Lasix] 20 mg tablet 10 mg PO 3XWK Rx Instructions: sunday, sunday, and sunday Referrals Referrals: ProMisael MD [Primary Care Provider] -
[2024-03-13 21:25] LABS: Appearance Urine Clear (Clear); Bilirubin Urine Negative (Negative); Blood Urine Negative (Negative); Color Urine Yellow; Glucose Urine UA Negative (Negative); Ketones Urine Negative (Negative); Leukocyte Esterase Urine Negative (Negative); Nitrite Urine Negative (Negative); Protein Urine Negative (Negative); Urobilinogen Urine Negative (Negative); pH Urine 7.5 (4.5-7.5)
[2024-03-13] MEDS ORDERED: STAT IV/IM STA (21:27)
[2024-03-13 21:42] LABS: Urine Potassium 20.1 mmol/L
[2024-03-13] MEDS: SODIUM CHLORIDE 1 GM TABLET PO STA (22:43)
[2024-03-13] MEDS: SODIUM CHLORIDE 3 % 100 ML IV STA (22:43)
[2024-03-13] MEDS: ONDANSETRON INJ 2 MG/ML 2 ML VIAL IV STA (23:24)
[2024-03-13 23:36] LABS: BUN Creatinine Ratio 26.2 (10-20); Calcium 9.6 mg/dl (8.6-10.3); Creatinine Clr Calc Pharmacy 50.4 ml/min; Est GFR (African American) 93.8 ml/min; Est GFR (Non-African American) 80.9 ml/min
[2024-03-13] MEDS: MAGNESIUM SULFATE / D5W 1 GM/100 ML BAG IV STA (23:54)
[2024-03-14] MEDS ORDERED: ACETAMINOPHEN 325 MG TAB PO PRN (00:43)
[2024-03-14 04:03] LABS: Basophils # (auto) 0.02 K/uL (0.00-0.20); Basophils % (auto) 0.2 %; Eosinophils # (auto) 0.11 K/uL (0.00-0.50); Eosinophils % (auto) 1.2 %; Hematocrit (blood only) 31.7 % (37.0-47.0); Immature Granulocytes # (auto) 0.04 K/uL (0.01-0.20); Immature Granulocytes % (auto) 0.4 %; Lymphocytes # (auto) 2.11 K/uL (1.20-3.40); Lymphocytes % (auto) 22.4 %; Mean Corpuscular Hgb Conc 34.7 g/dL (32.0-36.0); Mean Corpuscular Volume 86.4 fL (80.0-100.0); Mean Platelet Volume 10.4 fL (9.4-12.4); Monocytes # (auto) 0.88 K/uL (0.11-0.59); Monocytes % (auto) 9.4 %; Neutrophils # (auto) 6.24 K/uL (1.40-6.50); Neutrophils % (auto) 66.4 %; Platelet Count 302 K/uL (130-400); RDW Coefficient of Variation 12.4 % (11.5-14.5); RDW Standard Deviation 39.4 fL (36.4-46.3); Red Blood Count 3.67 M/uL (4.20-5.40)
[2024-03-14 04:10] LABS: Albumin Globulin Ratio 1.3 (0.9-2); Albumin Level 3.8 gm/dl (3.4-5.0); BUN Creatinine Ratio 25.8 (10-20); Bilirubin,Total 0.7 mg/dl (0.2-1.0); Calcium 9.2 mg/dl (8.6-10.3); Creatinine Clr Calc Pharmacy 49.6 ml/min; Est GFR (African American) 93.3 ml/min; Est GFR (Non-African American) 80.5 ml/min; Globulin 2.9 gm/dl (2.5-4.0); Magnesium 1.9 mg/dl (1.7-2.4); Potassium 4.1 mmol/L (3.5-5.1); Total Protein 6.7 gm/dl (6.0-8.3)
[2024-03-14 07:48] LABS: BUN Creatinine Ratio 24.2 (10-20); Calcium 9.2 mg/dl (8.6-10.3); Creatinine Clr Calc Pharmacy 49.6 ml/min; Est GFR (African American) 93.3 ml/min; Est GFR (Non-African American) 80.5 ml/min; Potassium 4.4 mmol/L (3.5-5.1)
[2024-03-14] MEDS ORDERED: NON-FORMULARY MEDICATION (Fish,Bora,Flax Oils-Om3,6,9no1 [Omega 3-6-9] 1,200 mg Capsule) PO SCH (09:00)
[2024-03-14] MEDS ORDERED: NON-FORMULARY MEDICATION (Biotin 5 mg Tablet) PO SCH (09:00)
[2024-03-14] MEDS ORDERED: NON-FORMULARY MEDICATION (Garlic 1,000 mg capsule) PO SCH (09:00)
[2024-03-14] MEDS: ARTIFICIAL TEARS OP SCH (11:05)
[2024-03-14] MEDS: CALCIUM 600MG + VIT D 400 IU TAB PO SCH (11:46)
[2024-03-14] MEDS: FENOFIBRATE NANOCRYSTALLIZED 145 MG TABLET PO SCH (11:47)
[2024-03-14] MEDS: MAGNESIUM OXIDE 400 MG TAB PO SCH (11:47)
[2024-03-14] MEDS: SODIUM CHLORIDE 1 GM TABLET PO SCH (11:48)
[2024-03-14] MEDS: CEROVITE ADV FORMULA TAB PO SCH (11:48)
[2024-03-14 12:30] LABS: BUN Creatinine Ratio 23.1 (10-20); Calcium 9.2 mg/dl (8.6-10.3); Creatinine Clr Calc Pharmacy 47.3 ml/min; Est GFR (African American) 91.9 ml/min; Est GFR (Non-African American) 79.3 ml/min; Potassium 4.6 mmol/L (3.5-5.1)
[2024-03-14 16:21] LABS: BUN Creatinine Ratio 24.6 (10-20); Calcium 9.4 mg/dl (8.6-10.3); Creatinine Clr Calc Pharmacy 50.4 ml/min; Est GFR (African American) 93.8 ml/min; Est GFR (Non-African American) 80.9 ml/min; Potassium 4.5 mmol/L (3.5-5.1)
--- NOTE | 2024-03-14 16:32 | Hospitalist Progress Note ---
Date of Service March 14, 2024 Assessment & Plan (1) Acute hyponatremia: Plan: Acute hyponatremia/history of chronic hyponatremia- Sodium 122 on admission with baseline 134. Follows fluid restriction at home and does add some salt to her diet, drinks one glass Gatorade daily, four glasses water and 1 glass milk, 1 cup coffee Serum osmolality 264, Urine osmolality 270, and Ur Na 57 consistent with SIADH. TSH normal SHe had a fall last week and was having a lot of pain since then which can exacerbate SIADH Na+ now up to 127 with starting NaCl tabs and fluid restricting, received 100mL 3% NaCL Continue to Fluid restrict 1500 mL Continue NaCl 1000mg po bid Hold furosemide from home-low dose 3x/week follow BMP in AM and if close to or approaching 130, can dc to home (2) Hypertension: Plan: BPs stable, holding home telmisartan and lasix (3) Hypomagnesemia: Plan: Hypomagnesemia-replaced and now normal Continue home oral magnesium supplement Plan Hyperlipidemia- Continue fenofibrate Fall-consult PT/OT but she is already making laps around [facility] and no problems DVT proph-add Lovenox Dispo-likely dc to home tomorrow Admission and Anticipated Discharge Date Admission Date: March 13, 2024 Subjective Pt feels good today, no pain from her previous fall anymore in her bottom. No headache, no CP, SOB. Reports she has been drinking gatorade at home and recently increased it to two glasses a day. Physical Exam Constitutional: WD/WN, vitals as above Respiratory: normal respiratory effort, lungs clear to auscultation Cardiovascular: RRR, no murmur, no edema Gastrointestinal (Abdomen): normal bowel sounds, soft, nontender, no hepatosplenomegaly Psychiatric: A+Ox3, euthymic affect Results & Data Results & Data Vital Signs (Past 12 Hours) Vital Signs Temp Pulse Pulse Resp BP BP Pulse Ox 03/14/24 15:16 67 03/14/24 15:05 36.4 C L 68 18 126/62 96 03/14/24 13:40 67 16 155/72 H 98 03/14/24 11:12 65 16 97 03/14/24 11:00 153/76 H 03/14/24 09:27 75 12 03/14/24 09:12 73 18 03/14/24 09:00 81 16 03/14/24 08:51 67 16 93 03/14/24 08:45 65 15 95 03/14/24 08:30 70 13 95 03/14/24 08:30 147/74 H 03/14/24 08:24 71 15 95 03/14/24 08:18 70 16 95 03/14/24 07:42 69 15 93 03/14/24 07:30 134/67 03/14/24 07:20 69 03/14/24 07:12 75 15 97 03/14/24 07:00 145/59 H 03/14/24 06:54 69 12 96 03/14/24 06:51 69 13 94 03/14/24 06:24 72 16 96 03/14/24 06:15 61 13 96 03/14/24 06:03 63 16 94 03/14/24 06:00 114/58 L 03/14/24 05:48 63 13 96 03/14/24 05:42 65 12 94 03/14/24 05:30 113/50 L 03/14/24 05:24 63 13 95 03/14/24 05:00 63 16 95 03/14/24 05:00 105/44 L 03/14/24 04:57 64 15 95 03/14/24 04:48 76 16 113/65 96 03/14/24 04:42 66 14 96 03/14/24 04:33 67 13 95 03/14/24 04:30 113/45 L O2 Del Method 03/14/24 15:16 03/14/24 15:05 Room Air 03/14/24 13:40 Room Air 03/14/24 11:12 03/14/24 11:00 03/14/24 09:27 03/14/24 09:12 03/14/24 09:00 03/14/24 08:51 03/14/24 08:45 03/14/24 08:30 03/14/24 08:30 03/14/24 08:24 03/14/24 08:18 03/14/24 07:42 03/14/24 07:30 03/14/24 07:20 03/14/24 07:12 03/14/24 07:00 03/14/24 06:54 03/14/24 06:51 03/14/24 06:24 03/14/24 06:15 03/14/24 06:03 03/14/24 06:00 03/14/24 05:48 03/14/24 05:42 03/14/24 05:30 03/14/24 05:24 03/14/24 05:00 03/14/24 05:00 03/14/24 04:57 03/14/24 04:48 Room Air 03/14/24 04:42 03/14/24 04:33 03/14/24 04:30 Laboratory Results multiple BMPs reviewed, CBC reviewed PG Care Time/CCT Total # of Minutes Spent Total Time Spent with Patient: Total time spent is greater than 50% in coordination of care (as documented) at patient's floor/unit and/or counseling patient: Coding Level of Care Code 44928 SUB INP/OBS CARE 2/35MIN Diagnoses Acute hyponatremia E87.1 Hypertension I10 Hypertension type: essential hypertension Hypomagnesemia E83.42 (2) Hypertension Hypertension type: essential hypertension Qualified Code(s): I10 - Essential (primary) hypertension
[2024-03-14] MEDS: ENOXAPARIN INJ 40 MG/0.4 ML SYR SQ SCH (17:32)
[2024-03-14] MEDS: LATANOPROST 0.005% OP SOLN 2.5 ML BTL OPL SCH (20:05)
[2024-03-14] MEDS: ONDANSETRON INJ 2 MG/ML 2 ML VIAL IV PRN (20:31)
--- NOTE | 2024-03-14 22:55 | Electrocardiogram Report ---
Test Reason : Blood Pressure : */* mmHG Vent. Rate : 68 BPM Atrial Rate : 68 BPM P-R Int : 214 ms QRS Dur : 154 ms QT Int : 424 ms P-R-T Axes : 0 -13 117 degrees QTcB Int : 450 ms Sinus rhythm with 1st degree A-V block with Premature atrial complexes Left bundle branch block Abnormal ECG When compared with ECG of 18-Jan-2023 13:45, Premature atrial complexes are now Present QRS axis Shifted right Confirmed by Fabricio Sotelo ([id number]) on 03/14/2024 10:54:56 PM Referred By: Misael Victor Confirmed By: Fabricio Sotelo
[2024-03-15 06:57] LABS: Basophils # (auto) 0.03 K/uL (0.00-0.20); Basophils % (auto) 0.4 %; Eosinophils # (auto) 0.42 K/uL (0.00-0.50); Eosinophils % (auto) 5.2 %; Hematocrit (blood only) 31.4 % (37.0-47.0); Hemoglobin 10.8 g/dl (12.0-16.0); Immature Granulocytes # (auto) 0.03 K/uL (0.01-0.20); Immature Granulocytes % (auto) 0.4 %; Lymphocytes % (auto) 32.1 %; Mean Corpuscular Hemoglobin 30.3 pg (25.0-34.0); Mean Corpuscular Hgb Conc 34.4 g/dL (32.0-36.0); Mean Platelet Volume 10.5 fL (9.4-12.4); Monocytes # (auto) 0.94 K/uL (0.11-0.59); Monocytes % (auto) 11.6 %; Neutrophils # (auto) 4.07 K/uL (1.40-6.50); Neutrophils % (auto) 50.3 %; Platelet Count 290 K/uL (130-400); RDW Coefficient of Variation 12.9 % (11.5-14.5); RDW Standard Deviation 41.2 fL (36.4-46.3); Red Blood Count 3.57 M/uL (4.20-5.40); White Blood Count 8.09 K/ul (4.8-10.8)
[2024-03-15 07:18] LABS: Albumin Globulin Ratio 1.4 (0.9-2); Albumin Level 3.6 gm/dl (3.4-5.0); BUN Creatinine Ratio 23.8 (10-20); Bilirubin,Total 0.6 mg/dl (0.2-1.0); Calcium 8.8 mg/dl (8.6-10.3); Creatinine Clr Calc Pharmacy 30.5 ml/min; Est GFR (African American) 57.6 ml/min; Est GFR (Non-African American) 49.7 ml/min; Globulin 2.6 gm/dl (2.5-4.0); Magnesium 1.9 mg/dl (1.7-2.4); Potassium 4.9 mmol/L (3.5-5.1); Total Protein 6.2 gm/dl (6.0-8.3)
[2024-03-15] MEDS: MAGNESIUM SULFATE / D5W 1 GM/100 ML BAG IV ONE (08:38)
[2024-03-15] MEDS: FUROSEMIDE 20 MG TAB PO SCH (09:23)
[2024-03-15 15:19] LABS: BUN Creatinine Ratio 27.3 (10-20); Calcium 9.3 mg/dl (8.6-10.3); Est GFR (African American) 51.9 ml/min; Est GFR (Non-African American) 44.8 ml/min; Potassium 5.3 mmol/L (3.5-5.1)
--- NOTE | 2024-03-15 15:52 | Hospitalist Progress Note ---
Date of Service March 15, 2024 Assessment & Plan (1) Acute hyponatremia: Plan: Acute hyponatremia/history of chronic hyponatremia- Sodium 122 on admission with baseline 134. Follows fluid restriction at home and does add some salt to her diet, drinks one glass Gatorade daily, four glasses water and 1 glass milk, 1 cup coffee Serum osmolality 264, Urine osmolality 270, and Ur Na 57 consistent with SIADH. TSH normal SHe had a fall last week and was having a lot of pain since then which can exacerbate SIADH Na+ now up to 128 with starting NaCl tabs and fluid restricting, received 100mL 3% NaCL Continue to Fluid restrict 1500 mL Continue NaCl 1000mg po bid Can give Zofran as needed for nausea associated with salt tablets Resume furosemide 10 mg p.o. every other day-home dose follow BMP this afternoon and if improving to 130 or higher, can discharge- sodium this afternoon was back down to 126-hold off on discharge Liberalize diet from heart healthy to regular (2) Hypertension: Plan: BPs stable, holding home telmisartan and resumed low-dose lasix (3) Hypomagnesemia: Plan: Aqljdtvfupuxit-jcailmit-[id number] low normal-give 1 g IV magnesium Continue home oral magnesium supplement Plan Hyperlipidemia- Continue fenofibrate Fall-consult PT/OT but she is already making laps around nurse's station and no problems as witnessed by myself DVT proph- Lovenox Dispo-hopeful for discharge to home tomorrow if sodium improving Admission and Anticipated Discharge Date Admission Date: March 13, 2024 Subjective Patient feeling well today. Has no complaints except she has not moved her bowels since admission. She is ambulating around the halls very quickly with a walker She did have some nausea with vomiting last night after taking the salt tablet. Nausea is now resolved today with IV Zofran and she was able to take the salt tablet with food No chest pains or shortness of breath, no headache. No pains anywhere. She is eating and drinking. She is anxious to return home Telemetry with first-degree AV block, sinus rhythm, rates in the 50s to 60s Physical Exam Constitutional: WD/WN, vitals as above Respiratory: normal respiratory effort, lungs clear to auscultation Cardiovascular: RRR, no murmur, no edema Gastrointestinal (Abdomen): normal bowel sounds, soft, nontender, no hepatosplenomegaly Neurologic: Gait: no ataxic gait and no shuffling gait Psychiatric: A+Ox3, euthymic affect Results & Data Results & Data Vital Signs (Past 12 Hours) Vital Signs Temp Pulse Pulse Resp BP Pulse Ox O2 Del Method 03/15/24 15:03 37.1 C 62 18 122/60 97 Room Air 03/15/24 11:20 36.6 C 59 L 18 109/46 L 94 Room Air 03/15/24 07:16 64 03/15/24 07:10 36.5 C 93 H 18 110/55 L 95 Room Air Laboratory Results CBC, BMP, magnesium, LFTs reviewed PG Care Time/CCT Total # of Minutes Spent Total Time Spent with Patient: Total time spent is greater than 50% in coordination of care (as documented) at patient's floor/unit and/or counseling patient: Coding Level of Care Code 21480 SUB INP/OBS CARE 2/35MIN Diagnoses Acute hyponatremia E87.1 Hypertension I10 Hypertension type: essential hypertension Hypomagnesemia E83.42 (2) Hypertension Hypertension type: essential hypertension Qualified Code(s): I10 - Essential (primary) hypertension
[2024-03-16 06:11] LABS: Albumin Globulin Ratio 1.3 (0.9-2); Albumin Level 3.6 gm/dl (3.4-5.0); BUN Creatinine Ratio 42.2 (10-20); Bilirubin,Total 0.6 mg/dl (0.2-1.0); Calcium 8.8 mg/dl (8.6-10.3); Creatinine Clr Calc Pharmacy 34.2 ml/min; Est GFR (African American) 66.2 ml/min; Est GFR (Non-African American) 57.1 ml/min; Globulin 2.7 gm/dl (2.5-4.0); Magnesium 1.9 mg/dl (1.7-2.4); Potassium 4.9 mmol/L (3.5-5.1); Total Protein 6.3 gm/dl (6.0-8.3)
[2024-03-16] MEDS: MAGNESIUM SULFATE / D5W 1 GM/100 ML BAG IV ONE (08:47)
[2024-03-16] MEDS: SODIUM CHLORIDE 0.9% 500 ML IV SCH (08:52)
[2024-03-16 14:52] LABS: BUN Creatinine Ratio 41.7 (10-20); Calcium 8.8 mg/dl (8.6-10.3); Creatinine Clr Calc Pharmacy 36.6 ml/min; Est GFR (African American) 71.9 ml/min; Est GFR (Non-African American) 62.1 ml/min; Potassium 4.8 mmol/L (3.5-5.1)
[2024-03-16 15:07] VITALS: BP 123/67; PULSE 70; RESP 18; TEMP 98.2; O2SAT 95
--- NOTE | 2024-03-16 16:42 | Discharge Summary ---
Discharge Summary Date of Service March 16, 2024 Principal Dx & Hospital Course #1 = Principal Diagnosis (1) Acute hyponatremia: Acute hyponatremia/history of chronic hyponatremia- Sodium 122 on admission with baseline 134. Follows fluid restriction at home and does add some salt to her diet, drinks one glass Gatorade daily, four glasses water and 1 cup coffee Serum osmolality 264, Urine osmolality 270, and Ur Na 57 consistent with SIADH. TSH normal SHe had a fall last week with possible syncope prior to and was having a lot of pain in her bottom/back and head since then which can exacerbate SIADH Na+ now up to 129 with starting NaCl tabs and fluid restricting, received 100mL 3% NaCL and another 500 mL of normal saline on the day of discharge Patient was not able to tolerate the oral salt tablets and vomited on 2 occasions. She has agreed to liberalize salt in her diet at home, cut down on glasses of water to only 1-2/day, and try to take in 3000 mg of sodium daily with eating more soup and drinking more Gatorade/Powerade Continue to Fluid restrict 1500 mL Continue home furosemide dose as this can also help her excrete free water and keep her sodium up Follow-up BMP in 2 days after discharge with results to the PCP (2) Hypertension: BPs normal despite holding home telmisartan for several days and resumed low- dose lasix every other day Recommend decreasing telmisartan to 20 mg daily on discharge and follow-up with PCP (3) Hypomagnesemia: Icygstalnjhyvn-uyguyfoe-xsucfihpmo Continue home oral magnesium supplement (4) Fall: She had a fall the week prior with what sounds like a syncopal episode. This may have been orthostasis. Her telmisartan dose has been reduced to 20 mg daily in case low blood pressure contributed She was encouraged to increase salt in her diet and may have been related to hyponatremia Her outpatient PCP has ordered her a cardiac event monitor and echocardiogram. She had no events on telemetry here and had no orthostasis or dizziness-she was practically running laps around the nurses station on multiple occasions with her walker without symptoms. She has no murmur on exam and no evidence of heart failure or valvular disease, specifically aortic stenosis that would cause syncope Suspect she had a orthostatic event, but should proceed with outpatient workup as ordered She no longer has any pain in her head or her bottom/low back from when she fell Plan Hyperlipidemia- Continue fenofibrate DVT proph- Lovenox Dispo-stable for discharge to home without services. I discussed her care with her neighbor and friend, Noris, on the phone at length on the day of discharge Notes For Next Care Provider Follow-up BMP in 2 days Medication Changes From Visit Decrease telmisartan to 20 mg daily Admission HPI Per Admitting Provider The patient is a 89-year-old female with a past medical history including labile blood pressure, hypercalcemia, hypercholesterolemia, hypertension, bilateral hip osteoarthritis. She was initially seen at the emergency department on 03/07/2024 following a head injury after a ground-level fall. At that time she had CT scan of the head which was negative, and CT scan of the cervical spine which showed chronic degenerative disc disease. The patient had gone laboratories at her outpatient PCPs office, which then revealed a sodium of 123, and she was referred to the ED for assessment this evening. Follow-up sodium this evening was 122, and patient was referred for evaluation for admission. The patient reports that she otherwise feels fine at this point, did have a transient headache a few days ago when she hit her head, and since that time has had no significant issues. Discharge Exam Constitutional WD/WN, vitals as above Respiratory normal respiratory effort, lungs clear to auscultation Cardiovascular RRR, no murmur, no edema Gastrointestinal (Abdomen) normal bowel sounds, soft, nontender, no hepatosplenomegaly Neurologic Gait: no ataxic gait and no shuffling gait Psychiatric A+Ox3, euthymic affect Discharge Plan Discharge Items Patient Disposition: Home - Self-Care Reason For Visit: HYPONATREMIA Discharge Diagnosis: Hyponatremia Condition on Discharge: Good Activity: Resume your previous activity Non-emergency contact: Primary Care Provider Call non-emergency contact if: you have any medication questions and your symptoms worsen Follow-up/Referrals: ProMisael MD [Primary Care Provider] - (Follow-up within 1 week) Diet: Regular Fluids: 1500ml (6 cups) Ambulatory Orders: Basic Metabolic Panel (Routine) Timeframe: 2 Days Location: Determined by Patient Ordered By: Radha Puente Attending Provider Instructions: You were admitted for a low sodium level which likely occurred as a result of your fall the week prior causing pain and head injury. You also tend to drink too much water. It is recommended that you drink no more than 1 or 2 glasses of water a day, and the rest of your fluid can be from either Gatorade or Powerade, as well as soups like chicken broth or tomato soup to get more sodium in your diet. You can liberalize salt in your diet by using a saltshaker with meals as well. You were not able to tolerate the salt tablets as they made you nauseated so these will not be prescribed. Your fluid intake should be no more than 1500 mL (50 ounces). You are now doing very well and not having any dizziness. Your primary care provider has ordered an outpatient heart monitor and echocardiogram for you due to your loss of consciousness with your fall last week. Please keep these appointments for tests as scheduled. Your heart was monitored here and you had no abnormal heart rhythms for several days. You do not have a heart murmur and likely do not have any significant heart disease that would cause you to pass out. If you feel lightheaded with standing in the future, please sit down and put her head between your knees or lie flat. You did not take your home telmisartan blood pressure pill while you are in the hospital and your blood pressures were normal. When you return home, you should only take half tablet of this once a day to reduce the dose. If your blood pressures become more elevated, your primary care physician can increase the dose back up. You should have your sodium level checked at the lab in 2 to 3 days after discharge. An order has been placed and the results should go to Dr. Victor for review. It was my pleasure taking care of you! Radha Ashley MD Pending Studies at Discharge: No Stand-Alone Forms: My [facility] Medications and DC Order Prescriptions: Continued garlic 1,000 mg capsule 1,000 mg PO QAM latanoprost 0.005 % drops 1 drp OPL HS Rx Instructions: L eye fenofibrate micronized 134 mg capsule 134 mg PO DAILY Qty: 90 3RF calcium carbonate-vitamin D3 [Calcium 500 With D] 500 mg-10 mcg (400 unit) tablet 1 tab PO DAILY magnesium 250 mg Tablet 250 mg PO QAM Centrum Silver 0.4-300-250 mg-mcg-mcg Tablet 1 tab PO QAM biotin 5 mg Tablet 5 mg PO QAM [place] 3-6-9 1,200 mg Capsule 1 cap PO QAM Systane Ultra 0.4-0.3 % Drops 1 drp OPHTHALMIC (EYE) BID amoxicillin 500 mg tablet 2,000 mg PO DIRECTED PRN (Reason: 1 HR PRIOR TO DENTAL PROCEDURES) furosemide [Lasix] 20 mg tablet 10 mg PO 3XWK Rx Instructions: sunday, sunday, and sunday Changed telmisartan [Micardis] 40 mg tablet 20 mg PO DAILY Qty: 15 0RF Rx Instructions: 20 mg orally; Discharge Orders: Discharge Order (Routine); Ordered 03/16/24 Ordered By: Radha Ashley Admission Data Admit Date/Time: 03/13/24 21:17 Attending Provider: Radha Ashley Admit Provider: Nicolas Ramires Primary Care Provider: Misael Victor Other Providers: Nicolas Ramires Hospital Stay Data Consultations 03/13/24 19:39 ED Decision to Admit Stat Pending Results Patient Have Any Pending Studies at Discharge: No Discharge Instructions Given to Patient (Per Discharging Provider) You were admitted for a low sodium level which likely occurred as a result of your fall the week prior causing pain and head injury. You also tend to drink too much water. It is recommended that you drink no more than 1 or 2 glasses of water a day, and the rest of your fluid can be from either Gatorade or Powerade, as well as soups like chicken broth or tomato soup to get more sodium in your diet. You can liberalize salt in your diet by using a saltshaker with meals as well. You were not able to tolerate the salt tablets as they made you nauseated so these will not be prescribed. Your fluid intake should be no more than 1500 mL (50 ounces). You are now doing very well and not having any dizziness. Your primary care provider has ordered an outpatient heart monitor and echocardiogram for you due to your loss of consciousness with your fall last week. Please keep these appointments for tests as scheduled. Your heart was monitored here and you had no abnormal heart rhythms for several days. You do not have a heart murmur and likely do not have any significant heart disease that would cause you to pass out. If you feel lightheaded with standing in the future, please sit down and p ut her head between your knees or lie flat. You did not take your home telmisartan blood pressure pill while you are in the hospital and your blood pressures were normal. When you return home, you should only take half tablet of this once a day to reduce the dose. If your blood pressures become more elevated, your primary care physician can increase the dose back up. You should have your sodium level checked at the lab in 2 to 3 days after discharge. An order has been placed and the results should go to Dr. Victor for review. It was my pleasure taking care of you! Radha Ashley MD Total Time Total Time Spent Total Time Spent (In Minutes): 35 minutes Total Time Includes: Examination of the Patient, Discharge Planning and Medication Reconciliation Coding Level of Care Code 60052 INP/OBS DISCH >30 MIN Diagnoses Acute hyponatremia E87.1 Hypertension I10 Hypertension type: essential hypertension Hypomagnesemia E83.42 Fall [id number]
== END 2024-03-16 17:21 | disposition home or self-care (01) | DRG 645 ==
LOC: SUATTDRO → ED 17:36 → SUATTDRO 21:17 → EDINP 21:17 → 2E 03-14 13:22 → 3N 03-15 18:40